=== PATIENT | male | born 1935 | race Caucasian/White ===

== ENCOUNTER 2016-04-02 | Outpatient (CLI) | payer MEDICARE, MEDICAID | END 2016-04-02 23:33 | disposition critical access hospital (66) | CPT/HCPCS: A0425; A0429 ==

== ENCOUNTER 2016-04-02 23:45 | Inpatient (IN) | payer MEDICARE, MEDICAID ==
[2016-04-02] MEDS ORDERED: A & D OINTMENT 5 GM PACKET TOP ONE (23:56)
[2016-04-03] MEDS ORDERED: SODIUM CHLORIDE 0.9% 1,000 ML IV ONE (00:56)
[2016-04-03] MEDS ORDERED: cefTRIAXone 1 GM in SODIUM CHLORIDE 0.9% MINIBAG 100 ML IV STA (01:14)
[2016-04-03] MEDS ORDERED: AZITHROMYCIN 250 MG TABLET PO STA (01:14)
[2016-04-03] MEDS ORDERED: cefTRIAXone 1 GM VIAL ONE (01:17)
[2016-04-03] MEDS ORDERED: AZITHROMYCIN 250 MG TABLET PO ONE (01:17)
[2016-04-03] MEDS ORDERED: SODIUM CHLORIDE FLUSH 0.9% 10 ML SYRINGE IVP PRN (01:24)
[2016-04-03] MEDS ORDERED: ACETAMINOPHEN 325 MG TABLET PO PRN (01:24)
[2016-04-03] MEDS ORDERED: IPRATROPIUM 0.2 MG/ML NEB INH PRN (01:24)
[2016-04-03] MEDS ORDERED: PROCHLORPERAZINE 10 MG/2 ML VIAL IVP PRN (01:24)
[2016-04-03] MEDS ORDERED: HYDROcod/ACETAM 5/325 MG TABLET PO PRN (01:24)
[2016-04-03] MEDS ORDERED: ONDANSETRON 4 MG/2 ML VIAL IVP PRN (01:24)
[2016-04-03] MEDS: SODIUM CHLORIDE 0.9% 1,000 ML IV SCH ×3 (03:00→22:15)
[2016-04-03] MEDS: SODIUM CHLORIDE FLUSH 0.9% 10 ML SYRINGE IVP SCH ×3 (05:44→22:15)
[2016-04-03] MEDS: LEVOTHYROXINE 25 MCG TABLET PO SCH (06:31)
[2016-04-03] MEDS: PANTOPRAZOLE 40 MG TABLET PO SCH (06:31)
[2016-04-03] MEDS: BUDESONIDE 0.5 MG/2 ML NEB INH SCH ×2 (07:25→17:50)
[2016-04-03] MEDS: HYDROcod/ACETAM 10 MG/325 MG TABLET PO PRN ×2 (07:57→17:32)
[2016-04-03] MEDS: CARBIDOPA/LEVODOPA 25 MG/100 MG TABLET PO SCH ×2 (07:57→12:01)
[2016-04-03] MEDS: predniSONE 1 MG TABLET PO SCH (09:18)
[2016-04-03] MEDS: ATENOLOL 25 MG TABLET PO SCH (09:20)
[2016-04-03] MEDS: ASPIRIN CHEW 81 MG TABLET PO SCH (09:20)
[2016-04-03] MEDS: POLYETHYLENE GLYCOL 3350 17 GM PACKET PO SCH (09:20)
[2016-04-03] MEDS: ENOXAPARIN 40 MG/0.4 ML SYRINGE SUBQ SCH (09:20)
[2016-04-03] MEDS: SACCHAROMYCES BOULARDII 250 MG CAPSULE PO SCH ×2 (09:20→17:26)
[2016-04-03] MEDS: GABAPENTIN 300 MG CAPSULE PO SCH (12:01)
[2016-04-03] MEDS: MULTIVITAMIN TABLET PO SCH (12:01)
[2016-04-03] MEDS: carBAMazepine 200 MG TABLET PO SCH ×2 (12:01→17:26)
[2016-04-03] MEDS: Vortioxetine Hydrobromide [Trintellix] 10 MG TAB PO SCH (14:13)
[2016-04-03] MEDS ORDERED: CARBIDOPA/LEVODOPA 25 MG/100 MG TABLET PO SCH (17:00)
[2016-04-03] MEDS ORDERED: DUTASTERIDE PO SCH (17:00)
[2016-04-03] MEDS ORDERED: TAMSULOSIN HCL PO SCH (17:00)
[2016-04-03] MEDS ORDERED: CHOLECALCIFEROL 1,000 UNIT TABLET PO SCH (17:00)
[2016-04-03] MEDS ORDERED: hydroCHLOROthiazide 25 MG TABLET PO SCH (17:00)
[2016-04-03] MEDS: IPRATROPIUM/ALBUTEROL 3 ML NEB INH PRN (17:50)
[2016-04-04] MEDS ORDERED: cefTRIAXone 2 GM in SODIUM CHLORIDE 0.9% MINIBAG 100 ML IV SCH (01:00)
[2016-04-04] MEDS ORDERED: AZITHROMYCIN INJ 500 MG in SODIUM CHLORIDE 0.9% 250 ML IV SCH (01:00)
[2016-04-04] MEDS: LEVOTHYROXINE 25 MCG TABLET PO SCH (05:57)
[2016-04-04] MEDS: PANTOPRAZOLE 40 MG TABLET PO SCH (05:57)
[2016-04-04] MEDS: SODIUM CHLORIDE FLUSH 0.9% 10 ML SYRINGE IVP SCH ×2 (06:46→13:05)
[2016-04-04] MEDS: SACCHAROMYCES BOULARDII 250 MG CAPSULE PO SCH (08:33)
[2016-04-04] MEDS: ENOXAPARIN 40 MG/0.4 ML SYRINGE SUBQ SCH (08:33)
[2016-04-04] MEDS: ASPIRIN CHEW 81 MG TABLET PO SCH (08:34)
[2016-04-04] MEDS: predniSONE 1 MG TABLET PO SCH (08:34)
[2016-04-04] MEDS: ATENOLOL 25 MG TABLET PO SCH (08:35)
[2016-04-04] MEDS: CARBIDOPA/LEVODOPA 25 MG/100 MG TABLET PO SCH ×2 (08:35→12:13)
[2016-04-04] MEDS: Vortioxetine Hydrobromide [Trintellix] 10 MG TAB PO SCH (08:36)
[2016-04-04] MEDS: POLYETHYLENE GLYCOL 3350 17 GM PACKET PO SCH (08:36)
[2016-04-04] MEDS: IPRATROPIUM/ALBUTEROL 3 ML NEB INH PRN (08:59)
[2016-04-04] MEDS: BUDESONIDE 0.5 MG/2 ML NEB INH SCH (08:59)
[2016-04-04] MEDS ORDERED: CALCIUM CARBONATE CHEW 500 MG TABLET PO SCH (11:00)
[2016-04-04] MEDS ORDERED: SODIUM CHLORIDE 0.45% 1,000 ML IV SCH (11:00)
[2016-04-04] MEDS: SODIUM CHLORIDE 0.9% 1,000 ML IV SCH (11:21)
[2016-04-04] MEDS ORDERED: ALBUTEROL NEB 2.5 MG/3 ML INH PRN (12:02)
[2016-04-04] MEDS: GABAPENTIN 300 MG CAPSULE PO SCH (13:03)
[2016-04-04] MEDS: carBAMazepine 200 MG TABLET PO SCH (13:03)
[2016-04-04] MEDS: MULTIVITAMIN TABLET PO SCH (13:03)
[2016-04-04] MEDS ORDERED: FORMOTEROL FUMARATE NEB 20 MCG/2 ML INH SCH (19:00)
[2016-04-05] MEDS ORDERED: predniSONE 5 MG TABLET PO SCH (09:00)
== END 2016-04-04 15:23 | disposition home or self-care (01) | DRG 195 ==
DX: J18.9 Pneumonia, unspecified organism (principal); I10 Essential (primary) hypertension; E03.9 Hypothyroidism, unspecified; G20 Parkinson's disease; Z79.52 Long term (current) use of systemic steroids; Z79.82 Long term (current) use of aspirin; Z87.891 Personal history of nicotine dependence; J44.9 Chronic obstructive pulmonary disease, unspecified; J45.909 Unspecified asthma, uncomplicated; I48.91 Unspecified atrial fibrillation; Z90.2 Acquired absence of lung [part of]; I73.9 Peripheral vascular disease, unspecified; Z98.42 Cataract extraction status, left eye; Z98.41 Cataract extraction status, right eye; R53.83 Other fatigue; E86.0 Dehydration; R33.9 Retention of urine, unspecified

== ENCOUNTER 2016-04-11 15:59 | Outpatient (CLI) | payer MEDICARE, MEDICAID | END 2016-04-11 16:00 | disposition home or self-care (01) | DX: J18.9 Pneumonia, unspecified organism (principal) ==

== ENCOUNTER 2016-08-04 03:35 | Outpatient (CLI) | payer MEDICARE, MEDICAID | END 2016-08-04 03:36 | disposition EMS.NT | LOC: EMS 03:35 | PROVIDERS: ATTEND Surgery | DX: Z71.1 Person with feared health complaint in whom no diagnosis is made (principal) ==

== ENCOUNTER 2016-08-09 08:33 | Outpatient (CLI) | payer MEDICARE, MEDICAID | END 2016-08-09 08:34 | disposition critical access hospital (66) | LOC: EMS 08:33 | PROVIDERS: ATTEND Surgery | DX: R53.1 Weakness (principal) | CPT/HCPCS: A0425; A0427 ==

== ENCOUNTER 2016-08-09 08:47 | Emergency (ER) | payer MEDICARE, MEDICAID ==
--- NOTE | 2016-08-09 09:00 | ED Physician Documentation ---
History of Present Illness - Stated complaint Stated Complaint: WEAKNESS - Additonal information Additional information: hx from EMS and from pt and EMR 81 male per EMR Pmxg [employer], lung cancer s/p surgery, hypothyroid, BPH, parkinsons, HTN, OA , PAD, afib not on coumadin 2/2 GIB generally weak with numerous falls recently 2 days of AMS as well no reported fever cough NVD or urinary sx no blood thinners seen in pt box of meds per EMS family states hx of same usually admitted for 2 days and comes home better but they dont know the dx Review of Systems Constitutional: denies: Fever, Chills Ears: denies: Drainage/discharge Nose: denies: Epistaxis Cardiac: denies: Chest pain / pressure Respiratory: denies: Dyspnea GI: denies: Abdominal Pain : denies: Dysuria Skin: reports: Abrasion (s) Neurologic: reports: Generalized weakness, Altered mental status, Head injury. denies: Focal weakness, Numbness Immunocompromised: denies: Immunocompromised PD PAST MEDICAL HISTORY - Past Medical History Cardiovascular: Hypertension Respiratory: Asthma, COPD Neuro: Parkinson's Endocrine/Autoimmune: HyPOthyroidism GI: None : Benign prostate hypertrophy HEENT: None Psych: None Musculoskeletal: Osteoarthritis Derm: Other - Past Surgical History Past Surgical History: Yes General: Other - Present Medications Home Medications: Ambulatory Orders Medication Instructions Recorded Confirmed Carbamazepine [Epitol] 200 mg PO 1200,1700 02/05/13 08/09/16 Dutasteride/Tamsulosin HCl [Debbi 0.4 - 0.5 mg PO 1700 02/05/13 08/09/16 0.5-0.4 mg Capsule] Levothyroxine Sodium [Synthroid] 50 mcg PO QDAC 02/05/13 08/09/16 Aspirin 81 mg PO DAILY 12/28/13 08/09/16 Carbidopa/Levodopa 25/100 [Sinemet 1 tab PO 1700,2100 06/18/15 08/09/16 25 mg/100 mg] Carbidopa/Levodopa 2 tab PO 0800,1200 09/23/15 08/09/16 [Carbidopa-Levodopa 25-100 Tab] Cholecalciferol (Vitamin D3) 2,000 unit PO DAILY 09/23/15 08/09/16 [Vitamin D3] Vortioxetine Hydrobromide 10 mg PO DAILY 09/23/15 08/09/16 [Trintellix] Gabapentin [Neurontin] 100 mg PO QDLUNCH 11/23/15 08/09/16 Multivitamin [Theragran] 1 each PO QDLUNCH 11/23/15 08/09/16 hydroCHLOROthiazide [Hydrodiuril] 25 mg PO DAILY 11/23/15 08/09/16 Atenolol [Tenormin] 25 mg PO BID 01/15/16 08/09/16 Acetaminophen [Tylenol] 650 mg PO Q4HR PRN #0 tablet 04/04/16 Albuterol Sulfate [Proair Hfa 2 puffs INH Q6H PRN 04/04/16 08/09/16 Inhaler] Fluticasone/Salmeterol [Advair 1 - 2 puffs IH Q4HR PRN #1 04/04/16 08/09/16 250-50 Diskus] disk.w.dev predniSONE [Deltasone] 5 mg PO DAILY tablet 04/04/16 08/09/16 Gabapentin 300 mg PO BID 08/09/16 08/09/16 - Allergies Allergies/Adverse Reactions: Allergies Allergy/AdvReac Type Severity Reaction Status Date / Time venom-honey bee Allergy Severe Respiratory Verified 01/15/16 08:10 [bee venom (honey bee)] - Social History Does the pt smoke?: No Smoking Status: Former smoker Does the pt drink ETOH?: No Does the pt have substance abuse?: No - Immunizations Immunizations are current?: Yes PD ED PE NORMAL - Vitals Vital signs reviewed: Yes - General General: No: Alert and oriented X 3 (when I ak if he hit his head he says "yes while playing hockey") - HEENT HEENT: Atraumatic, PERRL - Neck Neck: No bony TTP (but altered so cannot clear) - Cardiac Cardiac: RRR - Respiratory Respiratory: No respiratory distress, Clear bilaterally - Abdomen Abdomen: Soft, Non tender - Derm Derm: Other (bluish fingertips, warm, good radial pulse, cap refill 2-3 sec) - Extremities Extremities: Other (abrasions to shins no deformity) - Neuro Neuro: Other (awake cooperative no facial droop, moving all ext equally) Results - Vitals Vitals: Vital Signs - 24 hr 08/09/16 08/09/16 08/09/16 08:55 11:55 14:01 Temperature 36.6 C Heart Rate 92 77 79 Respiratory 16 18 16 Rate Blood Pressure 154/90 H 154/77 H 143/75 H O2 Saturation 100 99 97 Oxygen O2 Source [] Room air O2 Source Room air - EKG (time done) 0920 Rate: Rate (enter#) (87) Rhythm: Atrial fibrillation Intervals: Wide QRS (borderline). No: Normal GA Ischemia: Normal ST segments - Labs Labs: Laboratory Tests 08/09/16 08/09/16 08/09/16 09:16 09:16 09:16 WBC 6.7 RBC 4.29 L Hgb 14.9 Hct 43.3 MCV 100.8 H MCH 34.7 H MCHC 34.4 RDW 13.8 Plt Count 143 MPV 8.5 Neut # 5.1 Lymph # 0.[address] # 0.8 Eos # 0.1 Baso # 0.0 Absolute Nucleated RBC 0.00 Nucleated RBCs 0.0 Sodium 140 Potassium 3.4 L Chloride 95 L Carbon Dioxide 34 H Anion Gap 11.0 BUN 34 H Creatinine 1.2 Estimated GFR (MDRD) 58 L Glucose 145 H Calcium 9.3 Troponin I < 0.04 Urine Color Urine Clarity Urine pH Ur Specific [place] Urine Protein Urine Glucose (UA) Urine Ketones Urine Occult Blood Urine Nitrite Urine Bilirubin Urine Urobilinogen Ur Leukocyte Esterase Ur Microscopic Review Urine Culture Comments Last Dose Date UNK Last Dose Time UNK Carbamazepine 5.0 08/09/16 10:13 WBC RBC Hgb Hct MCV MCH MCHC RDW Plt Count MPV Neut # Lymph # [place] # Eos # Baso # Absolute Nucleated RBC Nucleated RBCs Sodium Potassium Chloride Carbon Dioxide Anion Gap BUN Creatinine Estimated GFR (MDRD) Glucose Calcium Troponin I Urine Color YELLOW Urine Clarity CLEAR Urine pH 6.5 Ur Specific [place] 1.020 Urine Protein TRACE Urine Glucose (UA) NEGATIVE Urine Ketones NEGATIVE Urine Occult Blood NEGATIVE Urine Nitrite NEGATIVE Urine Bilirubin NEGATIVE Urine Urobilinogen 0.2 (NORMAL) Ur Leukocyte Esterase NEGATIVE Ur Microscopic Review NOT INDICATED Urine Culture Comments NOT INDICATED Last Dose Date Last Dose Time Carbamazepine - Rads (name of study) CXR Radiology: See rad report (persistent linear consolidation RUL c/w scarring and not new, no new consolidation, stable mediastinal contour right upper mediastinum) CTH Radiology: See rad report (age related no acute) CTCS Radiology: See rad report (no acute) PD MEDICAL DECISION MAKING - ED course ED course: per clinic records anemia is not new renal insuff unknown all other results reassuing tried to road test pt but he cannot safely stand per tech his L leg seems to give out causing him to verr and fall will admit for further work up and consideration of MRI to eval for CVA not seen on CT in the pt with a hx of a fib not on coumadin he was never a TPA candidate due to duration of sx but when hospitalist came to eval pt he was able to walk with no loss of balance or focal findings P also came to eval pt and found nothing focal so will dc home rec use walker and fup PMD CO2 noted - pt has COPD - no resp distress not confused etc - feel OK to proceed with dc Departure - Departure Disposition: 01 Home, Self Care Clinical Impression: Falls Qualifiers: Encounter type: initial encounter Qualified Code(s): W19.XXXA - Unspecified fall, initial encounter Condition: Good Instructions: Falls Prevent Home, ED Fall Uncertain Cause Comments: All of your tests were reassuring - the CT scans were fine, the xray did not show a pneumonia, and the blood work was OK except for an elevated CO2 level which is likely due to your COPD - please continue to use you inhalers and nebulizers We considered admitting you and the hospitalist and physical therapy service came to evaluate you, but they felt you were fairly steady on your feet and not needing admission So the plan is to let you go home and follow up with your doctor next week for a recheck. Please always use your walker for transfer and ambulating Return if worse And please follow up with your PMD to recheck your blood pressure - it was elevated today
[2016-08-09 09:27] LABS: BASOPHILS % (AUTO) 0.4 %; EOSINOPHILS # (AUTO) 0.1 10^3/uL (0.0-0.7); EOSINOPHILS % (AUTO) 1.2 %; HCT - HEMATOCRIT 43.3 % (42.0-52.0); HGB - HEMOGLOBIN 14.9 g/dL (14.0-18.0); LYMPHOCYTES # (AUTO) 0.6 10^3/uL (1.5-3.5); LYMPHOCYTES % (AUTO) 9.6 %; MEAN CORPUSCULAR HEMOGLOBIN 34.7 pg (27.0-31.0); MEAN CORPUSCULAR HGB CONC 34.4 g/dL (32.0-36.0); MEAN CORPUSCULAR VOLUME 100.8 fL (80.0-94.0); MEAN PLATELET VOLUME 8.5 fL (7.4-11.4); MONOCYTES # (AUTO) 0.8 10^3/uL (0.0-1.0); MONOCYTES % (AUTO) 12.1 %; NEUTROPHILS # (AUTO) 5.1 10^3/uL (1.5-6.6); NEUTROPHILS % (AUTO) 76.7 %; RED BLOOD COUNT 4.29 10^6/uL (4.70-6.10); RED CELL DISTRIBUTION WIDTH 13.8 % (12.0-15.0); UNCORRECTED WHITE BLOOD COUNT 6.7 x10^3/uL; WHITE BLOOD COUNT 6.7 x10^3/uL (4.8-10.8)
[2016-08-09 09:43] LABS: BUN - BLOOD UREA NITROGEN 34 mg/dL (6-20); CALCIUM 9.3 mg/dL (8.5-10.3); CARBON DIOXIDE - CO2 34 mmol/L (21-32); CHLORIDE 95 mmol/L (101-111); CREATININE 1.2 mg/dL (0.6-1.2); GFR - MDRD 58 (>89); GLUCOSE 145 mg/dL (70-100); POTASSIUM 3.4 mmol/L (3.5-5.0); SODIUM 140 mmol/L (135-145)
--- NOTE | 2016-08-09 10:07 | XRAY Preliminary Report ---
Exam: XR Chest 2 View PA/LAT IMPRESSION: 1. Persistent linear consolidation at the right upper lung compatible with scarring is unchanged. No new consolidation. 2. Stable mediastinal contour prominence at the right upper mediastinum. [facility] SITE ID: [id number]
--- NOTE | 2016-08-09 10:10 | XRAY Report ---
EXAM: CHEST RADIOGRAPHY EXAM DATE: 08/09/2016 09:52 AM. CLINICAL HISTORY: Weak and AMS concern re pna. COMPARISON: 04/11/2016. TECHNIQUE: 2 views. FINDINGS: Lungs/Pleura: COPD is evident. Persistent linear consolidation and scarring at the right upper lobe. Scarring is also noted at the right lung base. No new opacity. Left lung is clear. Possible right bas al stable pleural effusion versus pleural thickening. No pneumothorax. Mediastinum: Heart size is normal. Atheromatous calcification of the aortic arch. Prominence of the r ight upper mediastinal contour is unchanged. Other: Stable right upper lobe rib irregularity. IMPRESSION: 1. Persistent linear consolidation at the right upper lung compatible with scarring is unchanged. No new consolidation. 2. Stable mediastinal contour prominence at the right upper mediastinum. [facility] Referring Provider Line: [phone] SITE ID: [id number]
--- NOTE | 2016-08-09 10:13 | CT Preliminary Report ---
Exam: CT Head W/O IMPRESSION: Generalized age-related cortical atrophic changes without evidence of acute intracranial abnormality. [facility] SITE ID: [id number]
--- NOTE | 2016-08-09 10:16 | CT Report ---
EXAM: CT HEAD EXAM DATE: 08/09/2016 10:04 AM. CLINICAL HISTORY: Freq falls AMS X 2 days. COMPARISON: None. TECHNIQUE: Multiaxial CT images were obtained from the foramen magnum to the vertex. IV contrast: Non e. Reformats: Coronal. In accordance with CT protocol optimization, one or more of the following dose reduction techniques w ere utilized for this exam: automated exposure control, adjustment of mA and/or KV based on patient s ize, or use of iterative reconstructive technique. FINDINGS: Parenchyma: No intraparenchymal hemorrhage. No evidence of mass, midline shift, or CT findings of acu te infarction. Velasquez-white differentiation is distinct. Extraaxial Spaces: Normal for age. No subdural or epidural collections identified. Ventricles: The ventricles and cortical sulci are enlarged, consistent with age-related tissue loss. Sinuses: Imaged paranasal sinuses, orbits, and mastoids show no significant abnormality. Bones: No evidence of fracture or calvarial defect. Other: Diffuse chronic microangiopathic white matter changes are evident. IMPRESSION: Generalized age-related cortical atrophic changes without evidence of acute intracranial abnormality. [facility] Referring Provider Line: [phone] SITE ID: [id number]
[2016-08-09 10:21] LABS: BILIRUBIN,URINE NEGATIVE (NEGATIVE); PH,URINE 6.5 PH (5.0-7.5); UA CHARGE (STRIP ONLY) YES; UR CULTURE IF IND NOT INDICATED
--- NOTE | 2016-08-09 10:22 | CT Report ---
EXAM: CT CERVICAL SPINE WITHOUT CONTRAST DATE: 08/09/2016 10:04 AM HISTORY: Freq falls hit head. COMPARISONS: None. TECHNIQUE: Thin-section axial images were acquired of the cervical spine without contrast. Post-proce ssing: Coronal and sagittal reformats. Other: None. In accordance with CT protocol optimization, one or more of the following dose reduction techniques w ere utilized for this exam: automated exposure control, adjustment of mA and/or KV based on patient s ize, or use of iterative reconstructive technique. FINDINGS: Alignment: Normal. No scoliosis or spondylolisthesis. Bones: Osteopenia. No acute fracture lines are seen. No focal abnormal bone lesions. Interspace Levels/Facets: C1-C2: Moderate degenerative narrowing at the C1-C2 interspace. C2-C3: Unremarkable. C3-C4: Mild disk height loss. Moderate to severe bilateral neuroforaminal stenosis secondary to facet and uncovertebral hypertrophy. C4-C5: Mild disk height loss. Moderate to severe bilateral neuroforaminal stenosis secondary to facet and uncovertebral hypertrophy. C5-C6: Moderate to severe disk height loss with prominent disk osteophytes. Moderate to severe right and moderate left neuroforaminal stenosis secondary to facet and uncovertebral hypertrophy. C6-C7: Moderate to severe disk height loss. Moderate to severe bilateral neuroforaminal stenosis seco ndary to facet and uncovertebral hypertrophy. C7-T1: Unremarkable. Musculature: Normal. No fatty atrophy. Other: The paravertebral and prevertebral soft tissues are normal. Probable right apical lung scarrin g. Severe atheromatous calcification noted at the internal carotid artery sinuses bilaterally.. IMPRESSION: 1. No evidence for acute fracture or dislocation of the cervical spine. 2. Multilevel degenerative changes in cervical spine as described above. 3. Incidental note of severe atheromatous calcification of the internal carotid artery sinuses bilate rally. Ultrasound can be obtained for further evaluation if clinically indicated. [facility] Referring Provider Line: [phone] SITE ID: [id number]
[2016-08-09] MEDS ORDERED: SODIUM CHLORIDE FLUSH 0.9% 10 ML SYRINGE IVP PRN (12:36)
[2016-08-09] MEDS ORDERED: SODIUM CHLORIDE 0.9% 1,000 ML IV SCH (13:00)
[2016-08-09] MEDS ORDERED: ENOXAPARIN 40 MG/0.4 ML SYRINGE SUBQ SCH (13:00)
[2016-08-09] MEDS: SODIUM CHLORIDE 0.9% 1,000 ML IV ONE (13:38)
[2016-08-09] MEDS ORDERED: SODIUM CHLORIDE FLUSH 0.9% 10 ML SYRINGE IVP SCH (14:00)
[2016-08-09 14:02] VITALS: BP 143/75
[2016-08-10] MEDS ORDERED: POLYETHYLENE GLYCOL 3350 17 GM PACKET PO SCH (09:00)
== END 2016-08-09 14:58 | disposition home or self-care (01) ==
LOC: EDUNIT# → ED 08:47 → UNDOADMOB 12:36 → MS 12:36 → ED 14:58
DX: S09.90XA Unspecified injury of head, initial encounter (principal); W19.XXXA Unspecified fall, initial encounter; I48.91 Unspecified atrial fibrillation; R94.31 Abnormal electrocardiogram [ECG] [EKG]; Z85.118 Personal history of other malignant neoplasm of bronchus and lung; E03.9 Hypothyroidism, unspecified; N40.0 Benign prostatic hyperplasia without lower urinary tract symptoms; G20 Parkinson's disease; I10 Essential (primary) hypertension; M19.90 Unspecified osteoarthritis, unspecified site; I73.9 Peripheral vascular disease, unspecified; J45.909 Unspecified asthma, uncomplicated; J44.9 Chronic obstructive pulmonary disease, unspecified; Z79.82 Long term (current) use of aspirin; Z87.891 Personal history of nicotine dependence
CPT/HCPCS: 36415; 51701; 70450; 71020; 72125; 80048; 80156; 81001; 81003; 84484; 85025; 87086; 93005; 93010; 99284

== ENCOUNTER 2016-08-10 17:35 | Outpatient (CLI) | payer MEDICARE, MEDICAID | END 2016-08-10 17:36 | disposition critical access hospital (66) | LOC: EMS 17:35 | PROVIDERS: ATTEND Surgery | DX: R53.1 Weakness (principal) | CPT/HCPCS: A0425; A0429 ==

== ENCOUNTER 2016-08-10 17:46 | Inpatient (IN) | payer MEDICARE, MEDICAID ==
--- NOTE | 2016-08-10 17:56 | ED Physician Documentation ---
PD HPI ALTERED MENTAL STATUS - Stated complaint Stated Complaint: WEAKNESS - Chief complaint Chief Complaint: Neuro - History obtained from History obtained from: Patient, EMS, Other (family not here on pt arrival) - History of Present Illness Timing - onset: Other (81-year-old with history of Parkinson's and dementia who over the last couple of months has had a steady decline with difficulty walking and incontinence of urine. Seen yesterday and had workup showing a contraction alkalosis but a negative head CT and chest x-ray. Hospitalist service evaluated him but he was back to his baseline at the time. He was not doing well supposedly at home today with difficulty walking and generalized weakness.) Review of Systems Unable to obtain: Confused PD PAST MEDICAL HISTORY - Past Medical History Cardiovascular: Hypertension Respiratory: Asthma, COPD Neuro: Parkinson's Endocrine/Autoimmune: HyPOthyroidism GI: None : Benign prostate hypertrophy HEENT: None Psych: None Musculoskeletal: Osteoarthritis Derm: Other - Past Surgical History Past Surgical History: Yes General: Other - Present Medications Home Medications: Ambulatory Orders Medication Instructions Recorded Confirmed Carbamazepine [Epitol] 200 mg PO 1200,1700 02/05/13 08/10/16 Dutasteride/Tamsulosin HCl [Debbi 0.4 - 0.5 mg PO 1700 02/05/13 08/10/16 0.5-0.4 mg Capsule] Levothyroxine Sodium [Synthroid] 50 mcg PO QDAC 02/05/13 08/10/16 Aspirin 81 mg PO DAILY 12/28/13 08/10/16 Carbidopa/Levodopa 25/100 [Sinemet 1 tab PO 1700,2100 06/18/15 08/10/16 25 mg/100 mg] Carbidopa/Levodopa 2 tab PO 0800,1200 09/23/15 08/10/16 [Carbidopa-Levodopa 25-100 Tab] Cholecalciferol (Vitamin D3) 2,000 unit PO DAILY 09/23/15 08/10/16 [Vitamin D3] Vortioxetine Hydrobromide 10 mg PO DAILY 09/23/15 08/10/16 [Trintellix] Gabapentin [Neurontin] 100 mg PO QDLUNCH 11/23/15 08/10/16 Multivitamin [Theragran] 1 each PO QDLUNCH 11/23/15 08/10/16 hydroCHLOROthiazide [Hydrodiuril] 25 mg PO DAILY 11/23/15 08/10/16 Atenolol [Tenormin] 25 mg PO BID 01/15/16 08/10/16 Acetaminophen [Tylenol] 650 mg PO Q4HR PRN #0 tablet 04/04/16 08/10/16 Albuterol Sulfate [Proair Hfa 2 puffs INH Q6H PRN 04/04/16 08/10/16 Inhaler] Fluticasone/Salmeterol [Advair 1 - 2 puffs IH Q4HR PRN #1 04/04/16 08/10/16 250-50 Diskus] disk.w.dev predniSONE [Deltasone] 5 mg PO DAILY tablet 04/04/16 08/10/16 Gabapentin 300 mg PO BID 08/09/16 08/10/16 - Allergies Allergies/Adverse Reactions: Allergies Allergy/AdvReac Type Severity Reaction Status Date / Time venom-honey bee Allergy Severe Respiratory Verified 01/15/16 08:10 [bee venom (honey bee)] - Social History Does the pt smoke?: No Smoking Status: Former smoker Does the pt drink ETOH?: No Does the pt have substance abuse?: No - Immunizations Immunizations are current?: Yes PD ED PE NORMAL - Vitals Vital signs reviewed: Yes - General General: Other (A O x2, parkinsonian tremor) - HEENT HEENT: PERRL, EOMI - Neck Neck: Supple, no meningeal sign, No bony TTP - Cardiac Cardiac: Other (tachycardic) - Respiratory Respiratory: Other (diminished on R, L base crackels) - Abdomen Abdomen: Soft, Non tender - Back Back: No CVA TTP, No spinal TTP - Derm Derm: Normal color, Warm and dry - Extremities Extremities: No edema, No calf tenderness / cord - Neuro Neuro: No motor deficit, No sensory deficit, Other (good strength throughout.) - Psych Psych: Normal mood, Normal affect Results - Vitals Vitals: Vital Signs - 24 hr 08/10/16 08/10/16 17:47 18:52 Temperature 37.6 C H 37.0 C Heart Rate 105 H 81 Respiratory 18 15 Rate Blood Pressure 183/94 H 150/69 H O2 Saturation 96 97 Oxygen O2 Source [With Activity] Room air O2 Source Room air - Labs Labs: Laboratory Tests 08/10/16 08/10/16 08/10/16 18:24 18:24 18:24 WBC 9.4 RBC 4.15 L Hgb 14.5 Hct 41.6 L MCV 100.2 H MCH 34.9 H MCHC 34.8 RDW 13.6 Plt Count 149 MPV 8.1 Neut # 7.8 H Lymph # 0.7 L [place] # 0.8 Eos # 0.0 Baso # 0.0 Absolute Nucleated RBC 0.00 Nucleated RBCs 0.0 Sodium 141 Potassium 3.7 Chloride 95 L Carbon Dioxide 33 H Anion Gap 13.0 BUN 51 H Creatinine 1.2 Estimated GFR (MDRD) 58 L Glucose 132 H Calcium 9.4 Total Bilirubin 0.7 AST 37 ALT < 10 L Alkaline Phosphatase 74 Total Protein 6.5 L Albumin 4.2 Globulin 2.3 Albumin/Globulin Ratio 1.8 Lipase 22 Urine Color Urine Clarity Urine pH Ur Specific [place] Urine Protein Urine Glucose (UA) Urine Ketones Urine Occult Blood Urine Nitrite Urine Bilirubin Urine Urobilinogen Ur Leukocyte Esterase Ur Microscopic Review Urine Culture Comments Last Dose Date UNKNOWN Last Dose Time UNKNOWN Carbamazepine 4.5 08/10/16 19:57 WBC RBC Hgb Hct MCV MCH MCHC RDW Plt Count MPV Neut # Lymph # [place] # Eos # Baso # Absolute Nucleated RBC Nucleated RBCs Sodium Potassium Chloride Carbon Dioxide Anion Gap BUN Creatinine Estimated GFR (MDRD) Glucose Calcium Total Bilirubin AST ALT Alkaline Phosphatase Total Protein Albumin Globulin Albumin/Globulin Ratio Lipase Urine Color YELLOW Urine Clarity CLEAR Urine pH 5.5 Ur Specific [place] 1.025 Urine Protein TRACE Urine Glucose (UA) NEGATIVE Urine Ketones NEGATIVE Urine Occult Blood TRACE-LYSE Urine Nitrite NEGATIVE Urine Bilirubin NEGATIVE Urine Urobilinogen 0.2 (NORMAL) Ur Leukocyte Esterase NEGATIVE Ur Microscopic Review NOT INDICATED Urine Culture Comments NOT INDICATED Last Dose Date Last Dose Time Carbamazepine - Rads (name of study) 2v chest Radiology: EMP read contemporaneously (stable, NAD) PD MEDICAL DECISION MAKING - ED course ED course: 81-year-old gentleman with Parkinson's worsening dementia presents with frequent falls and worsening evidence of dehydration. No convincing evidence of a infection here. His daughter is available by phone, Nancy Alvarez [phone]. He does have evidence of worsening dehydration despite IV fluids yesterday with his BUN going from the mid 30s to above [address] Rice accepted to obs Departure - Departure Disposition: ED Place in Observation Clinical Impression: Dehydration Dementia Qualifiers: Dementia type: Parkinson's disease Dementia behavioral disturbance: without behavioral disturbance Qualified Code(s): G20 - Parkinson's disease; F02.80 - Dementia in other diseases classified elsewhere without behavioral disturbance Condition: Stable
[2016-08-10 18:30] LABS: BASOPHILS % (AUTO) 0.2 %; HCT - HEMATOCRIT 41.6 % (42.0-52.0); HGB - HEMOGLOBIN 14.5 g/dL (14.0-18.0); LYMPHOCYTES # (AUTO) 0.7 10^3/uL (1.5-3.5); LYMPHOCYTES % (AUTO) 7.9 %; MEAN CORPUSCULAR HEMOGLOBIN 34.9 pg (27.0-31.0); MEAN CORPUSCULAR HGB CONC 34.8 g/dL (32.0-36.0); MEAN CORPUSCULAR VOLUME 100.2 fL (80.0-94.0); MEAN PLATELET VOLUME 8.1 fL (7.4-11.4); MONOCYTES # (AUTO) 0.8 10^3/uL (0.0-1.0); MONOCYTES % (AUTO) 8.9 %; NEUTROPHILS # (AUTO) 7.8 10^3/uL (1.5-6.6); RED BLOOD COUNT 4.15 10^6/uL (4.70-6.10); RED CELL DISTRIBUTION WIDTH 13.6 % (12.0-15.0); UNCORRECTED WHITE BLOOD COUNT 9.4 x10^3/uL; WHITE BLOOD COUNT 9.4 x10^3/uL (4.8-10.8)
[2016-08-10 18:42] LABS: ALBUMIN/GLOBULIN RATIO 1.8 (1.0-2.2); BILIRUBIN,TOTAL 0.7 mg/dL (0.2-1.0); BUN - BLOOD UREA NITROGEN 51 mg/dL (6-20); CALCIUM 9.4 mg/dL (8.5-10.3); CARBON DIOXIDE - CO2 33 mmol/L (21-32); CHLORIDE 95 mmol/L (101-111); CREATININE 1.2 mg/dL (0.6-1.2); GFR - MDRD 58 (>89); GLUCOSE 132 mg/dL (70-100); LIPASE 22 U/L (22-51); POTASSIUM 3.7 mmol/L (3.5-5.0); SODIUM 141 mmol/L (135-145); TOTAL PROTEIN 6.5 g/dL (6.7-8.2)
--- NOTE | 2016-08-10 20:01 | XRAY Preliminary Report ---
Exam: XR Chest 2 View PA/LAT IMPRESSION: Stable radiographic appearance to the chest. No new plain film abnormalities are seen. [facility] SITE ID: [id number]
--- NOTE | 2016-08-10 20:04 | XRAY Report ---
EXAM: CHEST RADIOGRAPHY EXAM DATE: 08/10/2016 07:31 PM. CLINICAL HISTORY: Dyspnea, weakness. COMPARISON: Multiple priors, most recently 08/09/2016. TECHNIQUE: 2 views. FINDINGS: Lungs/Pleura: Stable right lung volume loss status post partial dissection. Left lung is well expande d. No evidence of acute consolidation or effusion. No pneumothorax. Mediastinum: Heart and mediastinal contours are unremarkable. Other: None. IMPRESSION: Stable radiographic appearance to the chest. No new plain film abnormalities are seen. [facility] Referring Provider Line: [phone] SITE ID: [id number]
[2016-08-10 20:11] LABS: BILIRUBIN,URINE NEGATIVE (NEGATIVE); PH,URINE 5.5 PH (5.0-7.5)
[2016-08-10 20:13] LABS: UA CHARGE (STRIP ONLY) YES; UR CULTURE IF IND NOT INDICATED
[2016-08-10] MEDS ORDERED: SODIUM CHLORIDE FLUSH 0.9% 10 ML SYRINGE IVP PRN (21:04)
[2016-08-10] MEDS ORDERED: ACETAMINOPHEN 325 MG TABLET PO PRN (21:04)
[2016-08-10] MEDS ORDERED: ONDANSETRON 4 MG/2 ML VIAL IVP PRN (21:04)
[2016-08-10] MEDS ORDERED: ALBUTEROL 8 GM INHALER INH PRN (21:10)
[2016-08-10] MEDS ORDERED: FLUTICASONE IH PRN (21:12)
[2016-08-10] MEDS ORDERED: SALMETEROL IH PRN (21:12)
[2016-08-10] MEDS ORDERED: POTASSIUM CHLORIDE INJ 20 MEQ in DEXTROSE 5%-0.45% NACL 1,000 ML IV SCH (22:00)
[2016-08-10] MEDS ORDERED: ALBUTEROL NEB 2.5 MG/3 ML INH PRN (22:49)
[2016-08-10] MEDS: SODIUM CHLORIDE FLUSH 0.9% 10 ML SYRINGE IVP SCH (23:03)
[2016-08-10 23:16] LABS: ABG ANALYSIS TIME 2311; ABG PCO2 42 mmHg (34-45); ABG PH 7.49 (7.35-7.45); ABG PO2 84 mmHg (80-100)
[2016-08-10 23:17] LABS: ABG BASE EXCESS 7.2 mmol/L (-2.0-3.0); ABG HCO3 31.2 mmol/L (22.0-26.0); ABG O2 DEVICE NASAL CANNULA; ABG OXYGEN SATURATION 96 % (94-98); ABG SATURATION PULSE OXIMETRY% 98 %; ABG SITE OF DRAW RIGHT BRACHIAL; ABG TCO2 32.5 MMOL/L (21.0-29.0)
[2016-08-10] MEDS: ATENOLOL 25 MG TABLET PO SCH (23:33)
[2016-08-10] MEDS: GABAPENTIN 300 MG CAPSULE PO SCH (23:33)
--- NOTE | 2016-08-10 23:54 | HISTORY & PHYSICAL EXAMINATION ---
Chief Complaint - Chief Complaint Chief Complaint: frequent falls,, poor by mouth intake, failure to thrive. History of Present Illness - Admitted From Admitted From:: emergency Department, home care - History Obtained From Records Reviewed: EMR History obtained from: patient and EMR Exam Limitations: Parkinson's with possible mild dementia - History of Present Illness HPI Comment/Other: this 81-year-old man normally lives at home with his wi . She recently had major surgery. One of their daughters has been trying to keep a check on them. He has been declining lately. He has had several falls recently. He was brought into the emergency room, and seems a bit dehydrated, so was given IV fluids. He was then discharged to home. He fell again today, and was brought Back to the emergency room. He does appear more dehydrated today He is now admitted as he has been failing outpatient management. As the nurses were settling in him into his new room,, they noticed a hard time getting an O2 saturation reading. His fingers seem to be bluish. As we evaluated him, and oximeter on his toe did show that his O2 saturation kristina to 100% on a nonrebreather. He asked for a drink of water, which he appeared to aspirate. He then began to cough, and coughed up a huge amounts of very thick, , whitish, ropy sputum. Afterwards, O2 saturations appeared to return to normal,, and the patient had less trouble breathing. -He notes he has had a cough productive of yellowish phlegm for the last one to 2 weeks. He has felt a little chilled, but is unaware of fever. He denies headaches or dizziness, earaches. His throat has been a little sore. He denies dysphasia,, or trouble chewing or swallowing food. He says he has not on a special diet at home. He denies chest pain or palpitation, shortness of breath, nausea or vomiting, diarrhea or constipation,, dysuria. 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 Dutasteride/tamsulosin 0.5-0.4 daily every afternoon Vitamin D 2000 units daily Sinemet 25/100 one twice a day at 1720 and 2100 Carbidopa-levodopa 25-100 , 2 tabs at 8 AM and noon Tegretol 200 mg at 1217 100 Atenolol 25 mg twice a day Aspirin 81 mg daily Albuterol inhaler 2 puffs every 6 h Acetaminophen 650 mg every 4 hours when necessary allergies: Honeybee venom social history: The patient lives w, but she just recently had major surgery. They have 3 children and 5 grandchildren. The patient generally walks with a walker. 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 He has a [id number] smoking history, He has one alcoholic drink per day. He does not use drugs. Family history : both parents are in their 70s, Another sister also of unknown cause. History - Past Medical History Cardiovascular: reports: Hypertension Respiratory: reports: Asthma, COPD Neuro: reports: Parkinson's Endocrine/Autoimmune: reports: HyPOthyroidism GI: reports: None : reports: Benign prostate hypertrophy HEENT: reports: None Psych: reports: None Musculoskeletal: reports: Osteoarthritis Derm: reports: Other MRSA Hx?: No - Past Surgical History General: reports: Other Meds/Allgy - Home Medications Home Medications: Ambulatory Orders Medication Instructions Recorded Confirmed Carbamazepine [Epitol] 200 mg PO 1200,1700 02/05/13 08/10/16 Dutasteride/Tamsulosin HCl [Debbi 0.4 - 0.5 mg PO 1700 02/05/13 08/10/16 0.5-0.4 mg Capsule] Levothyroxine Sodium [Synthroid] 50 mcg PO QDAC 02/05/13 08/10/16 Aspirin 81 mg PO DAILY 12/28/13 08/10/16 Carbidopa/Levodopa 25/100 [Sinemet 1 tab PO 1700,2100 06/18/15 08/10/16 25 mg/100 mg] Carbidopa/Levodopa 2 tab PO 0800,1200 09/23/15 08/10/16 [Carbidopa-Levodopa 25-100 Tab] Cholecalciferol (Vitamin D3) 2,000 unit PO DAILY 09/23/15 08/10/16 [Vitamin D3] Vortioxetine Hydrobromide 10 mg PO DAILY 09/23/15 08/10/16 [Trintellix] Gabapentin [Neurontin] 100 mg PO QDLUNCH 11/23/15 08/10/16 Multivitamin [Theragran] 1 each PO QDLUNCH 11/23/15 08/10/16 hydroCHLOROthiazide [Hydrodiuril] 25 mg PO DAILY 11/23/15 08/10/16 Atenolol [Tenormin] 25 mg PO BID 01/15/16 08/10/16 Acetaminophen [Tylenol] 650 mg PO Q4HR PRN #0 tablet 04/04/16 08/10/16 Albuterol Sulfate [Proair Hfa 2 puffs INH Q6H PRN 04/04/16 08/10/16 Inhaler] Fluticasone/Salmeterol [Advair 1 - 2 puffs IH Q4HR PRN #1 04/04/16 08/10/16 250-50 Diskus] disk.w.dev predniSONE [Deltasone] 5 mg PO DAILY tablet 04/04/16 08/10/16 Gabapentin 300 mg PO BID 08/09/16 08/10/16 - Allergies Allergies/Adverse Reactions: Allergies Allergy/AdvReac Type Severity Reaction Status Date / Time venom-honey bee Allergy Severe Respiratory Verified 01/15/16 08:10 [bee venom (honey bee)] Exam - Vital Signs Reviewed Vital Signs: Yes Vital Signs: Vital Signs x48h Temp Pulse Pulse Resp BP BP Pulse Ox 08/10/16 22:53 36.6 C 101 H 18 145/91 H 99 08/10/16 22:00 36.7 C 108 H 20 195/64 H 08/10/16 21:39 36.6 C 64 16 170/91 H 97 this is a very frail, cachectic-appearing elderly white man,, who was in no acute distress when I met him, but subsequently developed a very severe, congested, wet sounding cough. Head: Normocephalic, atraumatic Eyes: PERRLA, EOMI,, anicteric. Pharynx: Teeth are in only fair condition. Mucosa appears fairly moist. Posterior pharynx did not show exudates. Neck: Appears supple, without lymphadenopathy Cardiac shows an irregularly irregular rhythm, with very distant heart sounds. Lungs: Have generally decreased breath sounds, with scattered crackles. I do not hear significant wheezing Abdomen: Is scaphoid, but soft a,, without guarding or rebound.. Bowel sounds are active. Extremities: Fingernails were a bit cyanotic initially, but seemed to improve after he coughed up a large amount of phlegm, and O2 saturations improved. No edema is noted. Neurologic exam: The patient appears a bit forgetful, but appropriate, and cooperative. Neurologic exam is notable for a significant resting tremor of his hands. Otherwise, exam is grossly nonfocal. Conclusion/Plan - Lab Results Fish Bones: 08/10/16 18:24 08/10/16 18:24 Other Lab Results: aa CBC differential shows elevated MCV of 100.2.. Absolute neutrophil count is elevated at 7800. ABG on 2 L nasal cannula: PH 7.49, PCO2 42, PO2 84, bicarbonate 31,, O2 saturation 96% Total protein is low at 6.5plan Urinalysis is essentially normal Chest x-ray: Shows stable right lung volume loss after partial dissection. No acute consultation. EKG shows atrial fibrillation at a rate of 87.. Right ventricular hypertrophy is also evident. Voltage is somewhat low. CT of the cervical spine: Shows no acute fracture. Multilevel DJD is seen,, as well as severe calcification of the internal carotid sinuses.. CT of the brain shows only age related changes Issues/Core Measures - Anticipated LOS Anticipated Stay Length: Less than 2 midnights - Issues Hospital Issues and Management Plan: #1. Weakness, and failure to thrive, with frequent falls. -this patient appears to have dehydration, which is likely contributing to his weakness. He reportedly has had a 70 pound weight loss over the last year or so, , and doesn't appear malnourished. He likely has progressive Parkinson's symptoms as well. He appears to aspirate when drinking thin liquids,, tonight. -He should have a speech therapy swallow eval. -I suspect he has an early aspiration pneumonia. -Physical therapy and occupational ttherapy evaluations. -IV fluids for rehydration. #2. Pulmonary. -Patient has COPD, and given his respiratory problems just after admission, I suspect possible recurrent pneumonia. -Blood and sputum cultures have been ordered. -Cover empirically with IV Zosyn.. -Oxygen, albuterol nebs, pulmonary toilet..,, A-I elected to avoid ipratropium to avoid making his secretions even thicker. -continue prednisone. -clarify home Advair dose. Our medication list says he uses it when necessary. #3. CODE STATUS: I believe he is still a full code. #4. DVT prophylaxis: Subcutaneous heparin. #5. Neurologic. Progressive Parkinson's. Continue physical therapy. Continue Sinemet. -he takes carbamazepine. I am not sure if he has a seizure hi #6. Endocrine. -Continue levothyroxine for hypothyroidism. #7. Cardiac. -Chronic atrial fibrillation. Continue aspirin. Coumadin was discontinued for GI bleed. Patient would also be high risk regarding his falling issues. -history of aortic stenosis. He may need an echocardiogram to see if this is contributing to falling. --Hypertension-continue atenolol. #8. KNOWN PERIPHERAL ARTERY DISEASE> Continue aspirin. #9. Neuropathy. Continue gabapentin. this visit took approximately 60 alessandra, to review the patient's records, review his case with the ER Shawn, interview and examine him,, and write orders.
[2016-08-11] MEDS: PIPERACILLIN/TAZOBACTAM 3.375 GM in SODIUM CHLORIDE 0.9% MINIBAG 100 ML IV SCH ×4 (01:59→20:11)
[2016-08-11] MEDS: SODIUM CHLORIDE FLUSH 0.9% 10 ML SYRINGE IVP SCH ×3 (05:54→23:35)
[2016-08-11 05:55] LABS: BASOPHILS % (AUTO) 0.2 %; HCT - HEMATOCRIT 37.8 % (42.0-52.0); HGB - HEMOGLOBIN 13.2 g/dL (14.0-18.0); LYMPHOCYTES # (AUTO) 1.1 10^3/uL (1.5-3.5); LYMPHOCYTES % (AUTO) 11.1 %; MEAN CORPUSCULAR HGB CONC 34.9 g/dL (32.0-36.0); MEAN CORPUSCULAR VOLUME 100.4 fL (80.0-94.0); MEAN PLATELET VOLUME 8.8 fL (7.4-11.4); MONOCYTES # (AUTO) 0.9 10^3/uL (0.0-1.0); MONOCYTES % (AUTO) 9.1 %; NEUTROPHILS # (AUTO) 7.6 10^3/uL (1.5-6.6); NEUTROPHILS % (AUTO) 79.6 %; RED BLOOD COUNT 3.76 10^6/uL (4.70-6.10); RED CELL DISTRIBUTION WIDTH 13.9 % (12.0-15.0); UNCORRECTED WHITE BLOOD COUNT 9.6 x10^3/uL; WHITE BLOOD COUNT 9.6 x10^3/uL (4.8-10.8)
[2016-08-11 06:07] LABS: ALBUMIN/GLOBULIN RATIO 1.2 (1.0-2.2); BUN - BLOOD UREA NITROGEN 41 mg/dL (6-20); CALCIUM 8.5 mg/dL (8.5-10.3); CARBON DIOXIDE - CO2 33 mmol/L (21-32); CHLORIDE 98 mmol/L (101-111); GFR - MDRD 72 (>89); GLUCOSE 132 mg/dL (70-100); SODIUM 140 mmol/L (135-145); TOTAL PROTEIN 6.1 g/dL (6.7-8.2)
[2016-08-11] MEDS: LEVOTHYROXINE 25 MCG TABLET PO SCH (06:22)
--- NOTE | 2016-08-11 06:31 | XRAY Preliminary Report ---
Exam: XR Chest 1 View IMPRESSION: 1. Scarring and volume loss in the right hemithorax. 2. Left basilar atelectasis or infiltrate. 3. Pulmonary vascularity upper normal. [facility] SITE ID: [id number]
--- NOTE | 2016-08-11 06:34 | XRAY Report ---
EXAM: CHEST RADIOGRAPHY EXAM DATE: 08/11/2016 06:21 AM. CLINICAL HISTORY: Pneumonia, aspiration. COMPARISON: 08/10/2016. TECHNIQUE: 1 view. FINDINGS: Lungs/Pleura: Scarring and volume loss again seen in the right hemithorax. Left basilar atelectasis o r infiltrate. Pulmonary vascularity is upper normal. There may be trace pleural fluid. No pneumothora x. Mediastinum: Within exam limitations, cardiomediastinal contour is normal. Other: None. IMPRESSION: 1. Scarring and volume loss in the right hemithorax. 2. Left basilar atelectasis or infiltrate. 3. Pulmonary vascularity upper normal. [facility] Referring Provider Line: [phone] SITE ID: [id number]
[2016-08-11] MEDS ORDERED: D5.45NS W/20 MEQ KCL 1,000 ML IV SCH (08:00)
[2016-08-11] MEDS: predniSONE 1 MG TABLET PO SCH (08:39)
[2016-08-11] MEDS: CARBIDOPA/LEVODOPA 25 MG/100 MG TABLET PO SCH ×4 (08:40→21:52)
[2016-08-11] MEDS: ASPIRIN CHEW 81 MG TABLET PO SCH (08:40)
[2016-08-11] MEDS: POLYETHYLENE GLYCOL 3350 17 GM PACKET PO SCH (08:40)
[2016-08-11] MEDS: ATENOLOL 25 MG TABLET PO SCH (08:40)
[2016-08-11] MEDS: CHOLECALCIFEROL 1,000 UNIT TABLET PO SCH (08:41)
[2016-08-11] MEDS: GABAPENTIN 300 MG CAPSULE PO SCH ×2 (08:42→21:52)
[2016-08-11] MEDS: D5.45NS W/20 MEQ KCL 1,000 ML IV SCH ×2 (08:43→19:07)
[2016-08-11] MEDS: HEPARIN 5,000 UNIT/ML VIAL SUBQ SCH ×2 (08:44→21:52)
[2016-08-11] MEDS ORDERED: ALBUTEROL NEB 2.5 MG/3 ML INH SCH (09:00)
[2016-08-11] MEDS ORDERED: VORTIOXETINE HYDROBROMIDE 10 MG PO SCH (09:00)
--- NOTE | 2016-08-11 10:16 | PROVIDER PROGRESS NOTE ---
Subjective - Prog Note Date Prog Note Date: 08/11/16 Prog Note Time: 10:14 - Subjective Subjective: Youre asking me too many questions, (when doing assessment this am) Family in right as I was assessing They have been just starting to look into LTC (have not yet met with social work), but recognize he is failing at home; falling more frequently, significant weight loss Current Medications - Current Medications Current Medications: Active Medications Generic Name Dose Route Start Last Admin Trade Name Freq PRN Reason Stop Dose Admin Acetaminophen 650 mg 08/10/16 21:04 Tylenol PO Q4HR PRN Pain 1 to 4 Albuterol 2.5 mg 08/10/16 22:49 INH RTQ4H PRN Wheezing Albuterol 2.5 mg 08/11/16 09:00 08/11/16 07:43 INH 2.5 mg QID FRANCISCO Administration Aspirin 81 mg 08/11/16 09:00 08/11/16 08:40 [facility] [place] Aspirin PO 81 mg DAILY FRANCISCO Administration Atenolol 25 mg 08/10/16 22:00 08/11/16 08:40 Tenormin PO 25 mg BID FRANCISCO Administration Carbamazepine 200 mg 08/11/16 12:00 Tegretol PO 1200,1700 [facility] Carbidopa/Levodopa 2 tab 08/11/16 08:00 08/11/16 08:40 Sinemet 25 Mg/100 Mg PO 2 tab 0800,1200 FR[facility]ISCO Administration Carbidopa/Levodopa 1 tab 08/11/16 17:00 Sinemet 25 Mg/100 Mg PO 1700,2100 [facility] Cholecalciferol 2,000 unit 08/11/16 09:00 08/11/16 08:41 Vitamin D3 PO 2,000 unit DAILY FRANCISCO Administration Finasteride 5 mg 08/11/16 17:00 Proscar PO DAILY@1700 [facility] Gabapentin 100 mg 08/11/16 12:00 Neurontin PO QDLUNCH [facility]ANC[facility]CO Gabapentin 300 mg 08/10/16 22:00 08/11/16 08:42 Neurontin PO 300 mg BID FRANCISCO Administration Heparin Sodium (Porcine) 5,000 unit 08/11/16 09:00 08/11/16 08:44 SUBQ 5,000 unit BID FRANCISCO Administration Piperacillin Sod/Tazobactam 100 mls @ 200 mls/hr 08/10/16 23:00 08/11/16 08:37 Sod 3.375 gm/ Sodium Chloride IV 200 mls/hr Q6H [facility]ANCISCO Administration Potassium Chloride/Dextrose/Sod Cl 1,000 mls @ 100 mls/hr 08/11/16 08:00 08:43 D5.45ns W/20 Meq Kcl IV 100 mls/hr .Q10H FRANCISCO Administration Levothyroxine Sodium 50 mcg 08/11/16 07:00 08/11/16 06:22 Synthroid PO 50 mcg QDAC FRANCISCO Administration Multivitamins 1 tab 08/11/16 12:00 Theragran PO QDLUNCH [facility] Ondansetron HCl 4 mg 08/10/16 21:04 Zofran Inj IVP Q6HR PRN Nausea / Vomiting Polyethylene Glycol 17 gm 08/11/16 09:00 08/11/16 08:40 Miralax PO 17 gm DAILY FR[facility]ISCO Administration Prednisone 5 mg 08/11/16 09:00 08/11/16 08:39 Deltasone PO 5 mg DAILY FRANCISCO Administration Sodium Chloride 10 ml 08/10/16 21:04 Normal Saline Flush 0.9% IVP PRN PRN NEEDED PER PROVIDER ORDERS Sodium Chloride 10 ml 08/10/16 22:00 08/11/16 05:54 Normal Saline Flush 0.9% IVP Not Given Q8HR [facility] Tamsulosin HCl 0.4 mg 08/11/16 17:00 Flomax PO DAILY@1700 [facility] Carbamazepine [Epitol] 200 mg PO 1200,1700 02/05/13 Dutasteride/Tamsulosin HCl [Debbi 0.5-0.4 mg Capsule] 0.4 - 0.5 mg PO 1700 02/05 Levothyroxine Sodium [Synthroid] 50 mcg PO QDAC 02/05/13 Aspirin 81 mg PO DAILY 12/28/13 Carbidopa/Levodopa 25/100 [Sinemet 25 mg/100 mg] 1 tab PO 1700,2100 06/18/15 Carbidopa/Levodopa [Carbidopa-Levodopa 25-100 Tab] 2 tab PO 0800,1200 09/23/15 Cholecalciferol (Vitamin D3) [Vitamin D3] 2,000 unit PO DAILY 09/23/15 Vortioxetine Hydrobromide [Trintellix] 10 mg PO DAILY 09/23/15 Gabapentin [Neurontin] 100 mg PO QDLUNCH 11/23/15 Multivitamin [Theragran] 1 each PO QDLUNCH 11/23/15 hydroCHLOROthiazide [Hydrodiuril] 25 mg PO DAILY 11/23/15 Atenolol [Tenormin] 25 mg PO BID 01/15/16 Albuterol Sulfate [Proair Hfa Inhaler] 2 puffs INH Q6H PRN 04/04/16 Gabapentin 300 mg PO BID 08/09/16 Objective - Vital Signs/Intake & Output Reviewed Vital Signs: Yes Vital Signs: Vital Signs x48h Temp Pulse Pulse Resp BP 08/11/16 09:34 36.6 C 89 16 115/68 08/11/16 07:46 100 24 08/11/16 06:00 36.4 C L 73 18 145/77 H Intake & Output: Intake & Output 08/08/16 08/09/16 08/10/16 08/11/16 23:59 23:59 23:59 23:59 Intake Total 973 Output Total 100 Balance -100 973 - Objective General Appearance: positive: No acute distress, Other (sleeping quietly when I first saw him, later awake, conversant, and family in Got up to chair with PT, sitting up eating lunch) Eyes Bilateral: positive: EOMI Respiratory: positive: No respiratory distress, Other (very prominent ribs vocalizing during exam interfering with assessment later sitting up in chair auscultated again; LLL rhonchi, sl RLL rhonchi, unlabored resps, 94% on 2L denies sob) Cardiovascular: positive: Regular rate & rhythm Abdomen: positive: Nml bowel sounds, No distention, Other (concave/scaphoid). negative: Tenderness Skin: positive: Warm, Dry, Other (no breakdown over spine ecchymosis deep purple R burleson, small bruise on L burleson) Extremities: positive: No pedal edema Neurologic/Psychiatric: positive: Oriented x3 (although STM for details is not good (e.g. has fallen 1.5 x in the last month)), Mood/affect nml, Other ( pleasant and engageable) - Lab Results Fish Bones: 08/11/16 05:00 08/11/16 05:00 Other Labs: Lab Results x24hrs 06/18/17 06/18/17 06/17/17 Range/Units 05:00 05:00 23:00 WBC 9.6 (4.8-10.8) x10^3/uL RBC 3.76 L (4.70-6.10) 10^6/uL Hgb 13.2 L (14.0-18.0) g/dL Hct 37.8 L (42.0-52.0) % MCV 100.4 H (80.0-94.0) fL MCH 35.0 H (27.0-31.0) pg MCHC 34.9 (32.0-36.0) g/dL RDW 13.9 (12.0-15.0) % Plt Count 128 L (130-450) 10^3/uL MPV 8.8 (7.4-11.4) fL Neut # 7.6 H (1.5-6.6) 10^3/uL Lymph # 1.1 L (1.5-3.5) 10^3/uL Marion # 0.9 (0.0-1.0) 10^3/uL Eos # 0.0 (0.0-0.7) 10^3/uL Baso # 0.0 (0.0-0.1) 10^3/uL Absolute Nucleated RBC 0.00 x10^3/uL Nucleated RBCs 0.0 /100WBC Bld Gas Analysis Time 2311 Sample Site RIGHT BRACHIAL ABG pH 7.49 H (7.35-7.45) ABG pCO2 42 (34-45) mmHg ABG pO2 84 (80-100) mmHg ABG HCO3 31.2 H (22.0-26.0) mmol/L ABG Total CO2 32.5 H (21.0-29.0) MMOL/L ABG O2 Saturation 96 (94-98) % ABG Oximetry Spot Check 98 % ABG Base Excess 7.2 H (-2.0-3.0) mmol/L David Test NOT APPLICABLE O2 Delivery Device NASAL CANNULA O2 Liters/Min 2.00 LPM Sodium 140 (135-145) mmol/L Potassium 3.0 L (3.5-5.0) mmol/L Chloride 98 L (101-111) mmol/L Carbon Dioxide 33 H (21-32) mmol/L Anion Gap 9.0 (6-13) BUN 41 H (6-20) mg/dL Creatinine 1.0 (0.6-1.2) mg/dL Estimated GFR (MDRD) 72 L (>89) Glucose 132 H (70-100) mg/dL Calcium 8.5 (8.5-10.3) mg/dL Ionized Calcium NO Total Bilirubin 1.0 (0.2-1.0) mg/dL AST 32 (10-42) IU/L ALT 19 (10-60) IU/L Alkaline Phosphatase 57 (42-121) IU/L Total Protein 6.1 L (6.7-8.2) g/dL Albumin 3.3 (3.2-5.5) g/dL Globulin 2.8 (2.1-4.2) g/dL Albumin/Globulin Ratio 1.2 (1.0-2.2) - Diagnostic Imaging Diagnostic Imaging Results: positive: Final report reviewed (CXR Left basilar atelectasis or infiltrate, scarring , volume loss R hemithorax Admission CXR did not note this) Assessment/Plan - Problem List (1) Falls Impression: Falls and Failure to Thrive and Wt loss/ Geriatric Syndrome progressive and multifactorial w/ progressive dementia PT evaluated today; final assessment not yet entered family was already realizing he needed LTC (also just had surgery). SW aware OOB to chair for all meals to avoid further deconditioning Qualifiers: Encounter type: initial encounter Qualified Code(s): W19.XXXA - Unspecified fall, initial encounter (2) Parkinsons disease Impression: Progressive/ advanced cotninue sinemet (3) Left lower lobe pneumonia Impression: with suspiciaous aspiration (possible early aspiration pneumonia) and possible mucus plug 08/10 continue zosyn, nebs, 02, wean 02 as able,low dose Prednisone (4) Hypothyroidism Impression: continue LT4 (5) Atrial fibrillation Impression: with Hx of GI bleed on warfarin HR controlled (sounds regular currently) on bid atenolol (25 mg po bid), but when upright in chair SBP low 80's (he is alert and oriented, not light headed as above) will reduce atenolol to qd and reeval/ hopefully still adequate rate control with that dose Qualifiers: (6) Volume depletion Impression: Volume depletion and orthostasis family reports he was not drinking at home when was home alone BUN improving, continue IVF orthostatic (which may be combination of volume depletion, autonomic dysfunction and atenolol , recheck chem (BUN) in am and orthostatics as above , reducing atenolol dose (7) BPH (benign prostatic hyperplasia) Impression: on proscar and flomax continue (8) History of seizure Impression: he reports multiple sz's in past on gabapentin and tegretol (9) Full code status Impression: H/P notes uncertainty of full code status "I've got too much to live for" Will confirm this w/ family as well when they are back (10) Hypokalemia Impression: due to reduced PO K in IVF 20 meq po bid x 4 doses
[2016-08-11] MEDS: ALBUTEROL NEB 2.5 MG/3 ML INH SCH ×3 (11:02→20:28)
[2016-08-11] MEDS: carBAMazepine 200 MG TABLET PO SCH ×2 (12:08→18:04)
[2016-08-11] MEDS: MULTIVITAMIN TABLET PO SCH (12:14)
[2016-08-11] MEDS: GABAPENTIN 100 MG CAPSULE PO SCH (12:14)
[2016-08-11] MEDS ORDERED: ATENOLOL 25 MG TABLET PO SCH (14:06)
[2016-08-11] MEDS: TAMSULOSIN 0.4 MG CAPSULE PO SCH (18:03)
[2016-08-11] MEDS: FINASTERIDE 5 MG TABLET PO SCH (18:03)
[2016-08-11] MEDS: POTASSIUM CHLORIDE 20 MEQ TABLET PO SCH (18:04)
[2016-08-11] MEDS: ACETAMINOPHEN 325 MG TABLET PO PRN (21:52)
[2016-08-12] MEDS: PIPERACILLIN/TAZOBACTAM 3.375 GM in SODIUM CHLORIDE 0.9% MINIBAG 100 ML IV SCH ×4 (03:20→19:46)
[2016-08-12] MEDS: SODIUM CHLORIDE FLUSH 0.9% 10 ML SYRINGE IVP SCH ×3 (05:23→19:46)
[2016-08-12] MEDS: D5.45NS W/20 MEQ KCL 1,000 ML IV SCH ×2 (05:23→16:48)
[2016-08-12 05:44] LABS: BASOPHILS % (AUTO) 0.1 %; EOSINOPHILS % (AUTO) 0.3 %; HCT - HEMATOCRIT 34.5 % (42.0-52.0); LYMPHOCYTES # (AUTO) 1.2 10^3/uL (1.5-3.5); LYMPHOCYTES % (AUTO) 13.1 %; MEAN CORPUSCULAR HEMOGLOBIN 35.2 pg (27.0-31.0); MEAN CORPUSCULAR HGB CONC 34.9 g/dL (32.0-36.0); MEAN PLATELET VOLUME 8.6 fL (7.4-11.4); MONOCYTES # (AUTO) 0.8 10^3/uL (0.0-1.0); MONOCYTES % (AUTO) 8.1 %; NEUTROPHILS # (AUTO) 7.3 10^3/uL (1.5-6.6); NEUTROPHILS % (AUTO) 78.4 %; RED BLOOD COUNT 3.41 10^6/uL (4.70-6.10); RED CELL DISTRIBUTION WIDTH 13.7 % (12.0-15.0); UNCORRECTED WHITE BLOOD COUNT 9.3 x10^3/uL; WHITE BLOOD COUNT 9.3 x10^3/uL (4.8-10.8)
[2016-08-12 05:54] LABS: ALBUMIN/GLOBULIN RATIO 1.1 (1.0-2.2); BILIRUBIN,TOTAL 0.7 mg/dL (0.2-1.0); BUN - BLOOD UREA NITROGEN 34 mg/dL (6-20); CALCIUM 8.1 mg/dL (8.5-10.3); CARBON DIOXIDE - CO2 33 mmol/L (21-32); CHLORIDE 102 mmol/L (101-111); GFR - MDRD 72 (>89); GLUCOSE 145 mg/dL (70-100); POTASSIUM 3.6 mmol/L (3.5-5.0); SODIUM 141 mmol/L (135-145); TOTAL PROTEIN 5.6 g/dL (6.7-8.2)
[2016-08-12 06:02] LABS: CALCIUM, IONIZED 1.1 mmol/L (1.15-1.33); VBG PH 7.369 (7.31-7.41)
[2016-08-12] MEDS: LEVOTHYROXINE 25 MCG TABLET PO SCH (06:10)
--- NOTE | 2016-08-12 07:35 | PROVIDER PROGRESS NOTE ---
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; "mild oral dysphagia r/t PD and missng molars; able to take this and solids w/o s/s/ of aspiration REcommm; dysphagia advanced diet, thins liquids, meds w/ waterh, Eat upright at 90 degrees He loves the ensure-plus Current Medications - Current Medications Current Medications: Active Medications Generic Name Dose Route Start Last Admin Trade Name Freq PRN Reason Stop Dose Admin Acetaminophen 650 mg 08/11/16 21:34 08/11/16 21:52 Tylenol PO 650 mg Q4HR PRN Administration Pain or Fever > 38C (100.4F) Albuterol 2.5 mg 08/10/16 22:49 INH RTQ4H PRN Wheezing Albuterol 2.5 mg 08/11/16 11:00 08/11/16 20:28 INH 2.5 mg RTQID FRANCISCO Administration Aspirin 81 mg 08/11/16 09:00 08/11/16 08:40 [facility] [place] Aspirin PO 81 mg DAILY FRANCISCO Administration Atenolol 25 mg 08/12/16 09:00 Tenormin PO DAILY FRANCISCO Carbamazepine 200 mg 08/11/16 12:00 08/11/16 18:04 Tegretol PO 200 mg 1200,1700 FRANCISCO Administration Carbidopa/Levodopa 2 tab 08/11/16 08:00 08/11/16 12:05 Sinemet 25 Mg/100 Mg PO 2 tab 0800,1200 FRANCISCO Administration Carbidopa/Levodopa 1 tab 08/11/16 17:00 08/11/16 21:52 Sinemet 25 Mg/100 Mg PO 1 tab 1700,2100 FRANCISCO Administration Cholecalciferol 2,000 unit 08/11/16 09:00 08/11/16 08:41 Vitamin D3 PO 2,000 unit DAILY FRANCISCO Administration Finasteride 5 mg 08/11/16 17:00 08/11/16 18:03 Proscar PO 5 mg DAILY@1700 FRANCISCO Administration Gabapentin 100 mg 08/11/16 12:00 08/11/16 12:14 Neurontin PO 100 mg QDLUNCH FRANCISCO Administration Gabapentin 300 mg 08/10/16 22:00 08/11/16 21:52 Neurontin PO 300 mg BID FRANCISCO Administration Heparin Sodium (Porcine) 5,000 unit 08/11/16 09:00 08/11/16 21:52 SUBQ 5,000 unit BID FRANCISCO Administration Piperacillin Sod/Tazobactam 100 mls @ 200 mls/hr 08/10/16 23:00 08/12/16 03:20 Sod 3.375 gm/ Sodium Chloride IV 200 mls/hr Q6H FRANCISCO Administration Potassium Chloride/Dextrose/Sod Cl 1,000 mls @ 100 mls/hr 08/11/16 08:00 05:23 D5.45ns W/20 Meq Kcl IV 100 mls/hr .Q10H FRANCISCO Administration Levothyroxine Sodium 50 mcg 08/11/16 07:00 08/12/16 06:10 Synthroid PO 50 mcg QDAC FRANCISCO Administration Multivitamins 1 tab 08/11/16 12:00 08/11/16 12:14 Theragran PO 1 tab QDLUNCH FRANCISCO Administration Ondansetron HCl 4 mg 08/10/16 21:04 Zofran Inj IVP Q6HR PRN Nausea / Vomiting Polyethylene Glycol 17 gm 08/11/16 09:00 08/11/16 08:40 Miralax PO 17 gm DAILY FRANCISCO Administration Potassium Chloride 20 meq 08/11/16 17:00 08/11/16 18:04 K-Dur PO 08/13/16 08:01 20 meq BIDWM FRANCISCO Administration Prednisone 5 mg 08/11/16 09:00 08/11/16 08:39 Deltasone PO 5 mg DAILY FRANCISCO Administration Sodium Chloride 10 ml 08/10/16 21:04 Normal Saline Flush 0.9% IVP PRN PRN NEEDED PER PROVIDER ORDERS Sodium Chloride 10 ml 08/10/16 22:00 08/12/16 05:23 Normal Saline Flush 0.9% IVP Not Given Q8HR FRANCISCO Tamsulosin HCl 0.4 mg 08/11/16 17:00 08/11/16 18:03 Flomax PO 0.4 mg DAILY@1700 FRANCISCO Administration Carbamazepine [Epitol] 200 mg PO 1200,1700 02/05/13 Dutasteride/Tamsulosin HCl [Debbi 0.5-0.4 mg Capsule] 0.4 - 0.5 mg PO 1700 02/05 Levothyroxine Sodium [Synthroid] 50 mcg PO QDAC 02/05/13 Aspirin 81 mg PO DAILY 12/28/13 Carbidopa/Levodopa 25/100 [Sinemet 25 mg/100 mg] 1 tab PO 1700,2100 06/18/15 Carbidopa/Levodopa [Carbidopa-Levodopa 25-100 Tab] 2 tab PO 0800,1200 09/23/15 Cholecalciferol (Vitamin D3) [Vitamin D3] 2,000 unit PO DAILY 09/23/15 Vortioxetine Hydrobromide [Trintellix] 10 mg PO DAILY 09/23/15 Gabapentin [Neurontin] 100 mg PO QDLUNCH 11/23/15 Multivitamin [Theragran] 1 each PO QDLUNCH 11/23/15 hydroCHLOROthiazide [Hydrodiuril] 25 mg PO DAILY 11/23/15 Atenolol [Tenormin] 25 mg PO BID 01/15/16 Albuterol Sulfate [Proair Hfa Inhaler] 2 puffs INH Q6H PRN 04/04/16 Gabapentin 300 mg PO BID 08/09/16 Objective - Vital Signs/Intake & Output Reviewed Vital Signs: Yes Vital Signs: Vital Signs x48h Temp Pulse Resp BP Pulse Ox 08/11/16 23:56 36.9 C 76 20 105/66 96 Intake & Output: Intake & Output 08/09/16 08/10/16 08/11/16 08/12/16 23:59 23:59 23:59 23:59 Intake Total 2355 842 Output Total 250 Balance 2105 842 - Objective General Appearance: positive: Other (had a bloody left nare this am, keeping tissue in his nare; bleeding has stopped (he picked his nose per RT) cachectic appearing, but animated, and seen walking with walker in jenkins with PT at a remarkable pace) ENT: positive: Other (sunken temples, poor dentition,) Respiratory: positive: No respiratory distress, Other (not wearing 02, no cough , no audible wheezing, decreased sounds thruoughout, old scar R lateral chest from old lobectomy. LLL crackles noted yesterday are not as pronounced today) Cardiovascular: positive: Regular rate & rhythm, No murmur, Other (very prominent ribs) Abdomen: positive: Nml bowel sounds, No distention (concave). negative: Tenderness Skin: positive: Warm, Dry Extremities: positive: No pedal edema, Other (Left burleson wound (skin tear) dressed by Casandra Reynolds from [facility]) - Lab Results Fish Bones: 08/12/16 05:16 08/12/16 05:16 Other Labs: Lab Results x24hrs 08/12/16 08/12/16 08/12/16 Range/Units 05:16 05:16 05:16 WBC 9.3 (4.8-10.8) x10^3/uL RBC 3.41 L (4.70-6.10) 10^6/uL Hgb 12.0 L (14.0-18.0) g/dL Hct 34.5 L (42.0-52.0) % MCV 101.0 H (80.0-94.0) fL MCH 35.2 H (27.0-31.0) pg MCHC 34.9 (32.0-36.0) g/dL RDW 13.7 (12.0-15.0) % Plt Count 108 L (130-450) 10^3/uL MPV 8.6 (7.4-11.4) fL Neut # 7.3 H (1.5-6.6) 10^3/uL Lymph # 1.2 L (1.5-3.5) 10^3/uL [place] # 0.8 (0.0-1.0) 10^3/uL Eos # 0.0 (0.0-0.7) 10^3/uL Baso # 0.0 (0.0-0.1) 10^3/uL Absolute Nucleated RBC 0.00 x10^3/uL Nucleated RBCs 0.0 /100WBC VBG pH 7.369 (7.31-7.41) Ionized Calcium 1.10 L YES (1.15-1.33) mmol/L Sodium 141 (135-145) mmol/L Potassium 3.6 (3.5-5.0) mmol/L Chloride 102 (101-111) mmol/L Carbon Dioxide 33 H (21-32) mmol/L Anion Gap 6.0 (6-13) BUN 34 H (6-20) mg/dL Creatinine 1.0 (0.6-1.2) mg/dL Estimated GFR (MDRD) 72 L (>89) Glucose 145 H (70-100) mg/dL Calcium 8.1 L (8.5-10.3) mg/dL Total Bilirubin 0.7 (0.2-1.0) mg/dL AST 33 (10-42) IU/L ALT < 10 L (10-60) IU/L Alkaline Phosphatase 48 (42-121) IU/L Total Protein 5.6 L (6.7-8.2) g/dL Albumin 2.9 L (3.2-5.5) g/dL Globulin 2.7 (2.1-4.2) g/dL Albumin/Globulin Ratio 1.1 (1.0-2.2) Assessment/Plan - Problem List (1) Left lower lobe pneumonia Impression: (1) Left lower lobe pneumonia Impression: 1 with suspiciaous aspiration (possible early aspiration pneumonia) and possible mucus plug 08/10, no leukocytosis; no indicatoin for repeat CBC in am sputum normal resp maurilio but passed a swallow eval today low grade temp 38.1 last night ~ 9:30p but no longer needs 02 continue zosyn> can likely change to Augmentin in am for D/C to [facility], low dose Prednisone (not sure of the indication for the 5mg daily he is getting, but it is on his home med list_ 2 )Falls and Failure to Thrive and Wt loss/ Geriatric Frailty Syndrome 08/12Much better today, has been up in chair, up w/ PT w/ walker, [facility] tomorrow 08/13 08/11progressive and multifactorial w/ progressive dementia PT evaluated today; final assessment not yet entered family was already realizing he needed LTC (also just had surgery). SW aware OOB to chair for all meals to avoid further deconditioning Qualifiers: Encounter type: initial encounter Qualified Code(s): W19.XXXA - Unspecified fall, initial encounter (2) Parkinsons disease Impression: Progressive/ advanced continue sinemet On trintellix at home for associated depression (4) Hypothyroidism Impression: continue LT4 (5) Atrial fibrillation Impression: 08/12 rate controlled on reduced atenolol per pharmacy recon,, he is NOT on any atenolol at home d/c'd today; His blood pressure DID tolerate the atenolol 25 mg ONCE daily dose (he was orthostatic yesterday so much better on reduced dose) 08/11with Hx of GI bleed on warfarin (so not on anticoagulation) rate controlled (reduced his atenolol from 25 bid to qd yesterday due to upright hypotension/orthostasis (6) Volume depletion Impression: Volume depletion and orthostasis ; still prerenal BUN /Cr 51/1.2>> 41/1.0?? 34 /1.0 continue IVF tonight, should be at baseline tomorrow, encourage PO at SNF amily reports he was not drinking at home when was home alone BUN improving, continue IVF orthostatic (which may be combination of volume depletion, autonomic dysfunction and atenolol , recheck chem (BUN) in am and orthostatics as above , reducing atenolol dose (7) BPH (benign prostatic hyperplasia) Impression: on proscar and flomax continue (8) History of seizure Impression: he reports multiple sz's in past on gabapentin and tegretol (9) Full code status Impression: H/P notes uncertainty of full code status "I've got too much to live for" Will confirm this w/ family as well when they are back (10) Hypokalemia Impression: improving (4 doses PO KCL 20 done ttomorrow am) 08/11 due to reduced PO K in IVF 20 meq po bid x 4 doses (2) Falls Qualifiers: Encounter type: initial encounter Qualified Code(s): W19.XXXA - Unspecified fall, initial encounter (5) Atrial fibrillation Qualifiers:
[2016-08-12] MEDS: ALBUTEROL NEB 2.5 MG/3 ML INH SCH ×2 (07:40→16:03)
[2016-08-12] MEDS: CARBIDOPA/LEVODOPA 25 MG/100 MG TABLET PO SCH ×4 (08:25→20:15)
[2016-08-12] MEDS: POLYETHYLENE GLYCOL 3350 17 GM PACKET PO SCH (08:26)
[2016-08-12] MEDS: HEPARIN 5,000 UNIT/ML VIAL SUBQ SCH ×2 (08:26→20:15)
[2016-08-12] MEDS: predniSONE 1 MG TABLET PO SCH (08:26)
[2016-08-12] MEDS: GABAPENTIN 300 MG CAPSULE PO SCH ×2 (08:26→20:15)
[2016-08-12] MEDS: POTASSIUM CHLORIDE 20 MEQ TABLET PO SCH ×2 (08:26→16:19)
[2016-08-12] MEDS: ASPIRIN CHEW 81 MG TABLET PO SCH (08:26)
[2016-08-12] MEDS: CHOLECALCIFEROL 1,000 UNIT TABLET PO SCH (08:43)
[2016-08-12] MEDS ORDERED: ATENOLOL 25 MG TABLET PO SCH (09:00)
[2016-08-12] MEDS: carBAMazepine 200 MG TABLET PO SCH ×2 (11:25→16:19)
[2016-08-12] MEDS: GABAPENTIN 100 MG CAPSULE PO SCH (11:25)
[2016-08-12] MEDS: MULTIVITAMIN TABLET PO SCH (11:25)
[2016-08-12] MEDS: FINASTERIDE 5 MG TABLET PO SCH (16:18)
[2016-08-12] MEDS: TAMSULOSIN 0.4 MG CAPSULE PO SCH (16:19)
[2016-08-12] MEDS ORDERED: LOPERAMIDE 2 MG CAPSULE PO SCH (18:42)
[2016-08-13] MEDS: D5.45NS W/20 MEQ KCL 1,000 ML IV SCH ×3 (01:22→13:27)
[2016-08-13] MEDS: PIPERACILLIN/TAZOBACTAM 3.375 GM in SODIUM CHLORIDE 0.9% MINIBAG 100 ML IV SCH ×4 (01:49→20:07)
[2016-08-13] MEDS ORDERED: METOPROLOL 5 MG/5 ML VIAL IVP SCH (03:00)
[2016-08-13] MEDS: SODIUM CHLORIDE FLUSH 0.9% 10 ML SYRINGE IVP SCH ×3 (05:34→22:12)
[2016-08-13] MEDS: LEVOTHYROXINE 25 MCG TABLET PO SCH (05:51)
[2016-08-13 06:33] LABS: CALCIUM 8.5 mg/dL (8.5-10.3); CREATININE 0.8 mg/dL (0.6-1.2); POTASSIUM 4.5 mmol/L (3.5-5.0)
[2016-08-13] MEDS: CHOLECALCIFEROL 1,000 UNIT TABLET PO SCH (07:45)
[2016-08-13] MEDS: POLYETHYLENE GLYCOL 3350 17 GM PACKET PO SCH (07:45)
[2016-08-13] MEDS: POTASSIUM CHLORIDE 20 MEQ TABLET PO SCH (07:45)
[2016-08-13] MEDS: SACCHAROMYCES BOULARDII 250 MG CAPSULE PO SCH ×2 (07:45→16:11)
[2016-08-13] MEDS: GABAPENTIN 300 MG CAPSULE PO SCH ×2 (07:45→22:11)
[2016-08-13] MEDS: predniSONE 1 MG TABLET PO SCH (07:45)
[2016-08-13] MEDS: CARBIDOPA/LEVODOPA 25 MG/100 MG TABLET PO SCH ×4 (07:45→22:11)
[2016-08-13] MEDS: ASPIRIN CHEW 81 MG TABLET PO SCH (07:46)
[2016-08-13] MEDS: HEPARIN 5,000 UNIT/ML VIAL SUBQ SCH ×2 (07:47→21:37)
[2016-08-13] MEDS: HYDROCORTISONE 25 MG SUPPOSITORY PR SCH ×3 (09:53→22:11)
[2016-08-13] MEDS: hydroCHLOROthiazide 25 MG TABLET PO SCH (09:53)
--- NOTE | 2016-08-13 12:11 | PROVIDER PROGRESS NOTE ---
Subjective - Prog Note Date Prog Note Date: 08/13/16 Prog Note Time: 12:10 - Subjective Pt reports feeling: Improved (pt report he felt better) Current Medications - Current Medications Current Medications: add HCTZ from home meds as pt had elevated BP Objective - Vital Signs/Intake & Output Vital Signs: Vital Signs x48h Temp Pulse Pulse Resp BP Pulse Ox 08/13/16 09:45 89 20 08/13/16 09:43 36.6 C 88 19 188/105 H 96 Intake & Output: Intake & Output 08/10/16 08/11/16 08/12/16 08/13/16 23:59 23:59 23:59 23:59 Intake Total 2355 2378 1520 Output Total 250 570 100 Balance 2105 1808 1420 - Objective General Appearance: positive: No acute distress, Alert Eyes Bilateral: positive: Normal inspection, PERRL ENT: positive: ENT inspection nml Neck: positive: Nml inspection, Trachea midline Respiratory: positive: Chest non-tender, Other (mild cracker sound at right lower lobe) Cardiovascular: positive: Regular rate & rhythm, No murmur Peripheral Pulses: 2+ Radial (R), 2+ Radial (L), 2+ Dorsalis pedis (R), 2+ Dorsalis pedis (L) Abdomen: positive: Non-tender, Nml bowel sounds, No distention Rectal: positive: Non-tender Back: positive: Nml inspection Skin: positive: Color nml, Warm Extremities: positive: Non-tender, Full ROM Neurologic/Psychiatric: positive: Motor nml, Sensation nml, Disoriented to time Reflexes: Knee (R): 2+, Knee (L): 2+ - Lab Results Fish Bones: 08/12/16 05:16 08/13/16 06:12 Other Labs: Lab Results x24hrs 08/13/16 Range/Units 06:12 Sodium 141 (135-145) mmol/L Potassium 4.5 (3.5-5.0) mmol/L Chloride 102 (101-111) mmol/L Carbon Dioxide 32 (21-32) mmol/L Anion Gap 7.0 (6-13) BUN 20 (6-20) mg/dL Creatinine 0.8 (0.6-1.2) mg/dL Estimated GFR (MDRD) 93 (>89) Glucose 137 H (70-100) mg/dL Calcium 8.5 (8.5-10.3) mg/dL Assessment/Plan - Problem List (1) HTN (hypertension) Impression: HTN, 08/13 pt has elevated BP, put back home BP meds HCTZ, recheck BP and closely monitor, since pt still had bilateral cracker lung, and pt was on and off hospital often , so add antibiotics watch caser works for pt discharge. If pt continues stable and find bed for pt , expect pt will be D/C tomorrow 1) Left lower lobe pneumonia Impression: 1 with suspiciaous aspiration (possible early aspiration pneumonia) and possible mucus plug 08/10, no leukocytosis; no indicatoin for repeat CBC in am sputum normal resp maurilio but passed a swallow eval today low grade temp 38.1 last night ~ 9:30p but no longer needs 02 continue zosyn> can likely change to Augmentin in am for D/C to [facility], nebs, low dose Prednisone (not sure of the indication for the 5mg daily he is getting, but it is on his home med list_ 2 )Falls and Failure to Thrive and Wt loss/ Geriatric Frailty Syndrome 08/12Much better today, has been up in chair, up w/ PT w/ walker, [facility] tomorrow 08/13 08/11progressive and multifactorial w/ progressive dementia PT evaluated today; final assessment not yet entered family was already realizing he needed LTC (also just had surgery). SW aware OOB to chair for all meals to avoid further deconditioning Qualifiers: Encounter type: initial encounter Qualified Code(s): W19.XXXA - Unspecified fall, initial encounter (2) Parkinsons disease Impression: Progressive/ advanced continue sinemet On trintellix at home for associated depression (4) Hypothyroidism Impression: continue LT4 (5) Atrial fibrillation Impression: 08/12 rate controlled on reduced atenolol per pharmacy recon,, he is NOT on any atenolol at home d/c'd today; His blood pressure DID tolerate the atenolol 25 mg ONCE daily dose (he was orthostatic yesterday so much better on reduced dose) 08/11with Hx of GI bleed on warfarin (so not on anticoagulation) rate controlled (reduced his atenolol from 25 bid to qd yesterday due to upright hypotension/orthostasis (6) Volume depletion Impression: Volume depletion and orthostasis ; still prerenal BUN /Cr 51/1.2>> 41/1.0?? 34 /1.0 continue IVF tonight, should be at baseline tomorrow, encourage PO at SNF amily reports he was not drinking at home when was home alone BUN improving, continue IVF orthostatic (which may be combination of volume depletion, autonomic dysfunction and atenolol , recheck chem (BUN) in am and orthostatics as above , reducing atenolol dose (7) BPH (benign prostatic hyperplasia) Impression: on proscar and flomax continue (8) History of seizure Impression: he reports multiple sz's in past on gabapentin and tegretol (9) Full code status Impression: H/P notes uncertainty of full code status "I've got too much to live for" Will confirm this w/ family as well when they are back (10) Hypokalemia Impression: improving (4 doses PO KCL 20 done ttomorrow am) 08/11 due to reduced PO K in IVF 20 meq po bid x 4 doses (2) Falls Qualifiers: Encounter type: initial encounter Qualified Code(s): W19.XXXA - Unspecified fall, initial encounter (5) Atrial fibrillation Qualifiers:
[2016-08-13] MEDS: GABAPENTIN 100 MG CAPSULE PO SCH (12:39)
[2016-08-13] MEDS: MULTIVITAMIN TABLET PO SCH (12:39)
[2016-08-13] MEDS: carBAMazepine 200 MG TABLET PO SCH ×2 (12:39→16:11)
[2016-08-13] MEDS: FINASTERIDE 5 MG TABLET PO SCH (16:11)
[2016-08-13] MEDS: TAMSULOSIN 0.4 MG CAPSULE PO SCH (16:11)
[2016-08-13] MEDS: ACETAMINOPHEN 325 MG TABLET PO PRN (16:11)
[2016-08-13] MEDS ORDERED: LORazepam 2 MG/ML SYRINGE IVP SCH (17:00)
[2016-08-13] MEDS ORDERED: OLANZapine 10 MG VIAL IM ONE (18:12)
[2016-08-13] MEDS ORDERED: OLANZapine 10 MG VIAL IM SCH (18:17)
[2016-08-13] MEDS: VANCOMYCIN INJ 1 GM in SODIUM CHLORIDE 0.9% 250 ML IV SCH (21:27)
[2016-08-13] MEDS ORDERED: WATER FOR INJECTION,STERILE 10 ML ONE ×2 (21:29→22:02)
[2016-08-13] MEDS: ZIPRASIDONE 20 MG VIAL IM PRN ×2 (21:38→22:04)
[2016-08-14] MEDS: PIPERACILLIN/TAZOBACTAM 3.375 GM in SODIUM CHLORIDE 0.9% MINIBAG 100 ML IV SCH ×4 (02:00→20:03)
[2016-08-14] MEDS: SODIUM CHLORIDE FLUSH 0.9% 10 ML SYRINGE IVP SCH ×3 (04:57→22:40)
[2016-08-14] MEDS: LEVOTHYROXINE 25 MCG TABLET PO SCH (06:07)
[2016-08-14 08:30] LABS: BASOPHILS % (AUTO) 0.3 %; EOSINOPHILS % (AUTO) 0.3 %; HCT - HEMATOCRIT 39.5 % (42.0-52.0); HGB - HEMOGLOBIN 13.7 g/dL (14.0-18.0); LYMPHOCYTES # (AUTO) 0.9 10^3/uL (1.5-3.5); LYMPHOCYTES % (AUTO) 10.3 %; MEAN CORPUSCULAR HEMOGLOBIN 34.4 pg (27.0-31.0); MEAN CORPUSCULAR HGB CONC 34.7 g/dL (32.0-36.0); MEAN CORPUSCULAR VOLUME 99.3 fL (80.0-94.0); MONOCYTES # (AUTO) 0.8 10^3/uL (0.0-1.0); MONOCYTES % (AUTO) 9.1 %; NEUTROPHILS # (AUTO) 7.2 10^3/uL (1.5-6.6); RED BLOOD COUNT 3.97 10^6/uL (4.70-6.10); RED CELL DISTRIBUTION WIDTH 12.9 % (12.0-15.0)
[2016-08-14 08:37] LABS: ALBUMIN/GLOBULIN RATIO 0.9 (1.0-2.2); BILIRUBIN,TOTAL 1.1 mg/dL (0.2-1.0); CALCIUM 8.9 mg/dL (8.5-10.3); CREATININE 0.9 mg/dL (0.6-1.2); POTASSIUM 4.2 mmol/L (3.5-5.0); TOTAL PROTEIN 6.7 g/dL (6.7-8.2)
[2016-08-14] MEDS: VANCOMYCIN INJ 1 GM in SODIUM CHLORIDE 0.9% 250 ML IV SCH ×2 (09:59→20:51)
[2016-08-14] MEDS: predniSONE 1 MG TABLET PO SCH (10:29)
[2016-08-14] MEDS: SACCHAROMYCES BOULARDII 250 MG CAPSULE PO SCH ×2 (10:29→18:45)
[2016-08-14] MEDS: GABAPENTIN 300 MG CAPSULE PO SCH ×2 (10:30→20:59)
[2016-08-14] MEDS: HEPARIN 5,000 UNIT/ML VIAL SUBQ SCH ×2 (10:30→21:00)
[2016-08-14] MEDS: CHOLECALCIFEROL 1,000 UNIT TABLET PO SCH (10:30)
[2016-08-14] MEDS: ASPIRIN CHEW 81 MG TABLET PO SCH (10:30)
[2016-08-14] MEDS: CARBIDOPA/LEVODOPA 25 MG/100 MG TABLET PO SCH ×4 (10:30→20:54)
[2016-08-14] MEDS: POLYETHYLENE GLYCOL 3350 17 GM PACKET PO SCH (10:31)
[2016-08-14] MEDS: HYDROCORTISONE 25 MG SUPPOSITORY PR SCH ×2 (10:31→21:03)
[2016-08-14] MEDS: hydroCHLOROthiazide 25 MG TABLET PO SCH (10:34)
[2016-08-14] MEDS ORDERED: WATER FOR INJECTION,STERILE 10 ML ONE (11:08)
[2016-08-14] MEDS: ZIPRASIDONE 20 MG VIAL IM PRN (11:10)
--- NOTE | 2016-08-14 11:27 | PROVIDER PROGRESS NOTE ---
Subjective - Prog Note Date Prog Note Date: 08/14/16 (n) Prog Note Time: 11:25 Objective - Vital Signs/Intake & Output Vital Signs: Vital Signs x48h Temp Pulse Resp BP Pulse Ox 08/14/16 08:16 36.7 C 100 22 175/89 H 94 08/14/16 06:04 21 Intake & Output: Intake & Output 08/11/16 08/12/16 08/13/16 08/14/16 23:59 23:59 23:59 23:59 Intake Total 2355 2378 2260 Output Total 250 570 100 Balance 2105 1808 2160 - Objective General Appearance: positive: Alert Eyes Bilateral: positive: Normal inspection, PERRL ENT: positive: ENT inspection nml, Pharynx nml Neck: positive: Nml inspection, Trachea midline Respiratory: positive: Chest non-tender, Other (pt's breathing sound is better than yesterday) Cardiovascular: positive: Regular rate & rhythm, No murmur Peripheral Pulses: 2+ Radial (R), 2+ Radial (L), 2+ Dorsalis pedis (R), 2+ Dorsalis pedis (L) Abdomen: positive: Non-tender, Nml bowel sounds, No distention Back: positive: Nml inspection Skin: positive: Color nml, Warm Extremities: positive: Non-tender, Full ROM Neurologic/Psychiatric: positive: Motor nml, Sensation nml, Disoriented to place , Disoriented to time - Lab Results Fish Bones: 08/14/16 08:10 08/14/16 08:20 Other Labs: Lab Results x24hrs 08/14/16 08/14/16 Range/Units 08:20 08:10 WBC 9.0 (4.8-10.8) x10^3/uL RBC 3.97 L (4.70-6.10) 10^6/uL Hgb 13.7 L (14.0-18.0) g/dL Hct 39.5 L (42.0-52.0) % MCV 99.3 H (80.0-94.0) fL MCH 34.4 H (27.0-31.0) pg MCHC 34.7 (32.0-36.0) g/dL RDW 12.9 (12.0-15.0) % Plt Count 145 (130-450) 10^3/uL MPV 9.0 (7.4-11.4) fL Neut # 7.2 H (1.5-6.6) 10^3/uL Lymph # 0.9 L (1.5-3.5) 10^3/uL [place] # 0.8 (0.0-1.0) 10^3/uL Eos # 0.0 (0.0-0.7) 10^3/uL Baso # 0.0 (0.0-0.1) 10^3/uL Absolute Nucleated RBC 0.00 x10^3/uL Nucleated RBCs 0.0 /100WBC Sodium 140 (135-145) mmol/L Potassium 4.2 (3.5-5.0) mmol/L Chloride 98 L (101-111) mmol/L Carbon Dioxide 32 (21-32) mmol/L Anion Gap 10.0 (6-13) BUN 14 (6-20) mg/dL Creatinine 0.9 (0.6-1.2) mg/dL Estimated GFR (MDRD) 81 L (>89) Glucose 97 (70-100) mg/dL Calcium 8.9 (8.5-10.3) mg/dL Total Bilirubin 1.1 H (0.2-1.0) mg/dL AST 44 H (10-42) IU/L ALT 40 (10-60) IU/L Alkaline Phosphatase 72 (42-121) IU/L Total Protein 6.7 (6.7-8.2) g/dL Albumin 3.2 (3.2-5.5) g/dL Globulin 3.5 (2.1-4.2) g/dL Albumin/Globulin Ratio 0.9 L (1.0-2.2) Assessment/Plan - Problem List (1) HTN (hypertension) Impression: pt was agitated and restless at morning, now he is better controlled. Pt's bilateral lung cracker sound is decreased. Add Duoneb with the same antibiotics to pt
[2016-08-14] MEDS: IPRATROPIUM/ALBUTEROL 3 ML NEB INH SCH ×2 (11:30→15:20)
[2016-08-14] MEDS ORDERED: IOPAMIDOL-300 100 ML VIAL IVP ONE (12:15)
[2016-08-14] MEDS: GABAPENTIN 100 MG CAPSULE PO SCH (14:01)
[2016-08-14] MEDS: MULTIVITAMIN TABLET PO SCH (14:01)
[2016-08-14] MEDS: carBAMazepine 200 MG TABLET PO SCH ×2 (14:01→18:45)
--- NOTE | 2016-08-14 14:50 | CT Report ---
CONTRAST ENHANCED CT EXAM OF THE CHEST: 08/14/2016 CLINICAL HISTORY: The patient has worsening symptoms, congestion and cough. COMPARISON: Previous CT was from 10/13/2015. TECHNIQUE: The patient received 100 mL of Isovue-370 as the contrast agent. A CT scan of the chest wa s done at 5 x 5 mm intervals with axial, coronal and sagittal reconstruction images. FINDINGS: The mediastinum shows several small lymph nodes in the anterior carinal region measuring 0 .9 cm and 0.7 cm. These lymph nodes appear slightly larger today than on preceding exam when they arnaud sured 0.5 cm and 0.4 cm. Left ventricular hypertrophy is seen. Vascular calcification is noted in the thoracic aorta with mild ectasia. The mediastinum shows significant deviation towards the right. This is the result of reduction in rig ht lung volume. The patient has had prior surgery. Surgical clips are seen in and about the right sup rahilar region. Elevation on the right hilum is noted. A cavity is seen in the right upper lobe once again measuring 9 cm by 5.3 cm by 3.3 cm. In associatio n with this cavity, in the right lung apex that extends medially towards the mediastinum, is pronounc ed apical pleural thickening and retraction of the right hilum superiorly. There is associated scarri ng noted in the right upper lobe and about the right hilum. Mild pulmonary hyperaeration is noted in the remaining portion of the right lung. Some mild scarring is also seen in the right lower lobe. No significant change in the right lung is seen as compared to preceding exam. The left lung does show c hange with now an infiltrate seen within the posterior aspect of the anterior segment of the left upp er lobe. This focal area of patchy consolidation silhouettes the major fissure and most likely repres ents an acute pneumonia. There is now also noted mild parenchymal disease about the right perihilar r egion. There is associated pleural thickening or small pleural effusion along the posterior aspect of the in ferior half of the left hemithorax. Adjacent to this pleural finding, are two small nodules in the le ft lower lobe. These each measure 1 cm in diameter. They were not present on preceding exam. They may represent nodular infiltrates or lesions related to metastatic disease or granulomatous disease. In addition, there is new parenchymal disease in the inferior segment of the left lower lobe. This was n ot noted on preceding exam and is consistent with a pneumonia or aspiration. The bones show several healed old left posterior rib fractures. Mild anterior spurring is seen in the thoracic spine. The upper abdomen shows no new abnormality. IMPRESSION: 1. EVIDENCE OF PARTIAL RIGHT LUNG RESECTION SPECIFICALLY THE RIGHT UPPER LOBE. ASSOCIATED CHANGES REL ATED TO THIS PARTIAL RIGHT LUNG RESECTION INCLUDE A CAVITY IN THE RIGHT LUNG APEX, RETRACTION OF THE RIGHT HILUM SUPERIORLY, SURGICAL CLIPS IN AND ABOUT THE RIGHT HILUM, AND SIGNIFICANT DEVIATION OF THE MEDIASTINUM TOWARDS THE RIGHT. PRONOUNCED PLEURAL SCARRING IS NOTED AT THE RIGHT LUNG APEX. MILD SCA RRING IS ALSO NOTED ABOUT THE RIGHT PERIHILAR REGION WITH EXTENSION INTO THE RIGHT UPPER AND RIGHT LO WER LOBES. THESE ADDITIONAL FINDINGS ARE RELATED TO PATIENT'S SURGERY AND POSSIBLY PRIOR RADIATION TH ERAPY. 2. THE LEFT LUNG DEMONSTRATES NEW INFILTRATES IN THE POSTERIOR ASPECT OF THE ANTERIOR SEGMENT OF THE LEFT UPPER LOBE AND IN THE INFERIOR SEGMENT OF THE LEFT LOWER LOBE. ASSOCIATED PLEURAL THICKENING OR LOCULATED PLEURAL EFFUSION IS NOW NOTED ALONG THE POSTERIOR ASPECT OF THE INFERIOR HALF OF THE LEFT L ISMA. THESE FINDINGS MOST LIKELY ARE THE RESULT OF A PNEUMONIA. 3. TWO SMALL NODULES ARE NOTED IN THE MID POSTERIOR ASPECT OF THE LEFT LUNG EACH MEASURING 1 CM IN DI AMETER. THEY WERE NOT SEEN PREVIOUSLY. ETIOLOGICAL CONSIDERATIONS INCLUDE NODULAR CONSOLIDATION RELAT ED TO ACUTE PNEUMONIA, METASTATIC DISEASE, OR GRANULOMATOUS DISEASE. RECOMMEND A REPEAT CT EXAM IN TW O MONTHS FOR FURTHER EVALUATION. 4. TWO MILDLY ENLARGED ANTERIOR CARINAL LYMPH NODES ARE NOTED. THESE SHOW MILD INCREASE IN SIZE CO MPARED TO PRECEDING EXAM OF 10/13/2015. THESE ARE NONSPECIFIC. THESE SHOULD BE FOLLOWED WITH A REPEAT CT EXAM IN TWO MONTHS. COMMENT: Dr. Sanchez informed patient's healthcare provider, Martino, nurse practitioner, of the ivana jiménez findings and recommendations. This was done on 08/14/2016 at 2:[address] In accordance with CT protocol optimization, one or more of the following dose reduction techniques w ere utilized for this exam: automated exposure control, adjustment of mA and/or KV based on patient size, or use of iterative reconstructive technique. JOB #: [id number] EXT JOB #:[id number]
[2016-08-14] MEDS: TAMSULOSIN 0.4 MG CAPSULE PO SCH (18:44)
[2016-08-14] MEDS: FINASTERIDE 5 MG TABLET PO SCH (18:45)
[2016-08-15] MEDS: PIPERACILLIN/TAZOBACTAM 3.375 GM in SODIUM CHLORIDE 0.9% MINIBAG 100 ML IV SCH ×3 (02:16→14:35)
[2016-08-15] MEDS: IPRATROPIUM/ALBUTEROL 3 ML NEB INH SCH ×4 (02:30→15:04)
[2016-08-15] MEDS: SODIUM CHLORIDE FLUSH 0.9% 10 ML SYRINGE IVP SCH ×2 (05:41→14:35)
[2016-08-15] MEDS: LEVOTHYROXINE 25 MCG TABLET PO SCH (05:52)
[2016-08-15 07:39] LABS: BASOPHILS # (AUTO) 0.1 10^3/uL (0.0-0.1); BASOPHILS % (AUTO) 0.7 %; EOSINOPHILS # (AUTO) 0.1 10^3/uL (0.0-0.7); EOSINOPHILS % (AUTO) 1.1 %; HCT - HEMATOCRIT 36.8 % (42.0-52.0); HGB - HEMOGLOBIN 12.6 g/dL (14.0-18.0); LYMPHOCYTES # (AUTO) 1.3 10^3/uL (1.5-3.5); LYMPHOCYTES % (AUTO) 17.6 %; MEAN CORPUSCULAR HEMOGLOBIN 34.5 pg (27.0-31.0); MEAN CORPUSCULAR HGB CONC 34.3 g/dL (32.0-36.0); MEAN CORPUSCULAR VOLUME 100.6 fL (80.0-94.0); MEAN PLATELET VOLUME 8.6 fL (7.4-11.4); MONOCYTES # (AUTO) 0.6 10^3/uL (0.0-1.0); MONOCYTES % (AUTO) 8.2 %; NEUTROPHILS # (AUTO) 5.2 10^3/uL (1.5-6.6); NEUTROPHILS % (AUTO) 72.4 %; RED BLOOD COUNT 3.66 10^6/uL (4.70-6.10); RED CELL DISTRIBUTION WIDTH 13.5 % (12.0-15.0); UNCORRECTED WHITE BLOOD COUNT 7.2 x10^3/uL; WHITE BLOOD COUNT 7.2 x10^3/uL (4.8-10.8)
[2016-08-15] MEDS: CHOLECALCIFEROL 1,000 UNIT TABLET PO SCH (07:49)
[2016-08-15] MEDS: SACCHAROMYCES BOULARDII 250 MG CAPSULE PO SCH (07:49)
[2016-08-15] MEDS: predniSONE 1 MG TABLET PO SCH (07:49)
[2016-08-15] MEDS: VANCOMYCIN INJ 1 GM in SODIUM CHLORIDE 0.9% 250 ML IV SCH (07:49)
[2016-08-15] MEDS: ASPIRIN CHEW 81 MG TABLET PO SCH (07:50)
[2016-08-15] MEDS: CARBIDOPA/LEVODOPA 25 MG/100 MG TABLET PO SCH ×2 (07:50→11:14)
[2016-08-15] MEDS: GABAPENTIN 300 MG CAPSULE PO SCH (07:50)
[2016-08-15] MEDS: hydroCHLOROthiazide 25 MG TABLET PO SCH (07:50)
[2016-08-15 07:51] LABS: ALBUMIN/GLOBULIN RATIO 0.9 (1.0-2.2); CALCIUM 8.6 mg/dL (8.5-10.3); CREATININE 1.1 mg/dL (0.6-1.2); POTASSIUM 3.5 mmol/L (3.5-5.0); TOTAL PROTEIN 5.9 g/dL (6.7-8.2)
[2016-08-15] MEDS: HEPARIN 5,000 UNIT/ML VIAL SUBQ SCH (07:51)
[2016-08-15] MEDS: POLYETHYLENE GLYCOL 3350 17 GM PACKET PO SCH (07:51)
[2016-08-15] MEDS: HYDROCORTISONE 25 MG SUPPOSITORY PR SCH (07:51)
[2016-08-15 08:18] VITALS: BP 152/80
[2016-08-15] MEDS: ACETAMINOPHEN 325 MG TABLET PO PRN (09:00)
[2016-08-15] MEDS: GABAPENTIN 100 MG CAPSULE PO SCH (11:14)
[2016-08-15] MEDS: carBAMazepine 200 MG TABLET PO SCH (11:14)
[2016-08-15] MEDS: MULTIVITAMIN TABLET PO SCH (11:14)
--- NOTE | 2016-08-15 16:39 | DISCHARGE SUMMARY ---
DATE OF ADMISSION: 08/11/2016 DATE OF DISCHARGE: 08/15/2016 PCP: Don Ram. CC: Mariano Garcia; Don Ram Admission Diagnosis: Weakness Failure to thrive Dehydration Recurrent Pneumonia COPD Parkinson's disease Hypothyroidism HTN Afib Discharge Diagnosis Weakness: improved with PT and OT Failure to thrive: consult with ST, public defender, pt's appetite better Dehydration: resolved Recurrent pneumonia: room air SO2 97-93 %, no cough, no fever, no SOB, lung sound much better COPD: stable, continue home medications Parkinson's disease: managed with Sinemet Hypothyroidism: stable HTN: controlled, stable delirium: resolved Afib: stable HOSPITAL COURSE: The patient came hospital with recurrent pneumonia, failure to thrive, with hx of Parkinson's, COPD, hypertension, BPH, and chronic atrial fibrillation and Coumadin was discontinued because of GI bleeding. Pt developed confusion and delirium in the hospital course. Now this problem is resolved, pt become as his base line. Patient's Recurrent pneumonia is significantly improved: room air SO2 97-93 %, no cough, no fever, no SOB, lung sound much clear. Patient want to be discharged today. The patient will be discharged to SNF. Pt had a CT. In the CT it was found 2 small nodules, in the left lower lobe. the patient and family was informed and advised to have following CT in 2 months for closely monitor. The patient is advised to see the PCP in 2 weeks and do the chest x-ray in 2 weeks and also have a CT of the chest in 2 months to closely monitor nodules. Also, the patient prescribed with Augmentin 500 b.i.d. for 14 days. The patient's questions and family's concerns are answered. Allergy: Venom-honey bee Home medications: Aspirin 81 mg PO daily, Albuterol inhaler 2 puff INH Q6H PRN SOB, Trintellix 10 mg PO daily, Multivitamin 1 tab po daily, synthroid 50 mcg PO daily, Gabapentin 100 mg PO at lunch 300 mg po bid, Dutasteride/tamsulosin 0.4 mg po daily, vit D3 2000 unit po daily, Sinemet 25/100 1 tab po bid at 1700 2100 2 tab PO 0800, 1200, Epitol 200 mg po bid, prednisone 5 mg daily, HCTZ 25 mg po daily. activity: as tolerated Diet: cardiac diet time spending around 50 min JOB #: [id number] EXT JOB #:[id number]
== END 2016-08-15 15:36 | DRG 194 ==
LOC: EDUNIT# → EDBD → ED 17:46 → MS 21:04 → OBSVTOIN 08-11 12:06 → MS 08-11 14:15
PROVIDERS: ADMIT Internal Medicine; ATTEND Nurse Practitioner Gerontology
DX: J18.9 Pneumonia, unspecified organism (principal); Z68.1 Body mass index [BMI] 19.9 or less, adult; R26.2 Difficulty in walking, not elsewhere classified; G20 Parkinson's disease; F02.80 Dementia in other diseases classified elsewhere, unspecified severity, without behavioral disturbance, psychotic disturbance, mood disturbance, and anxiety; I48.2 Chronic atrial fibrillation; E86.0 Dehydration; E87.6 Hypokalemia; J44.9 Chronic obstructive pulmonary disease, unspecified; E03.9 Hypothyroidism, unspecified; I10 Essential (primary) hypertension; R62.7 Adult failure to thrive; R63.4 Abnormal weight loss; G62.9 Polyneuropathy, unspecified; R91.8 Other nonspecific abnormal finding of lung field; N40.1 Benign prostatic hyperplasia with lower urinary tract symptoms; N39.498 Other specified urinary incontinence; R56.9 Unspecified convulsions; I73.9 Peripheral vascular disease, unspecified; M81.0 Age-related osteoporosis without current pathological fracture; M19.90 Unspecified osteoarthritis, unspecified site; F32.9 Major depressive disorder, single episode, unspecified; Z79.82 Long term (current) use of aspirin; Z79.51 Long term (current) use of inhaled steroids; Z79.52 Long term (current) use of systemic steroids; Z79.899 Other long term (current) drug therapy; Z87.891 Personal history of nicotine dependence; Z85.118 Personal history of other malignant neoplasm of bronchus and lung; Z95.828 Presence of other vascular implants and grafts; Z91.81 History of falling; Z90.2 Acquired absence of lung [part of]
CPT/HCPCS: 36415; 36600; 51701; 71010; 71020; 71260; 80048; 80053; 80156; 81001; 81003; 82330; 82803; 83690; 85025; 87070; 87086; 87205; 87493; 94640; 96365; 96366; 99284; 99285

== ENCOUNTER 2016-08-30 11:45 | Outpatient (CLI) | payer MEDICAID, MEDICARE, OTHER ==
[2016-08-30 16:01] LABS: BASOPHILS # (AUTO) 0.1 10^3/uL (0.0-0.1); BASOPHILS % (AUTO) 0.8 %; EOSINOPHILS # (AUTO) 0.2 10^3/uL (0.0-0.7); EOSINOPHILS % (AUTO) 2.1 %; HCT - HEMATOCRIT 38.6 % (42.0-52.0); HGB - HEMOGLOBIN 13.4 g/dL (14.0-18.0); LYMPHOCYTES # (AUTO) 0.9 10^3/uL (1.5-3.5); LYMPHOCYTES % (AUTO) 11.9 %; MEAN CORPUSCULAR HGB CONC 34.8 g/dL (32.0-36.0); MEAN CORPUSCULAR VOLUME 100.7 fL (80.0-94.0); MEAN PLATELET VOLUME 8.4 fL (7.4-11.4); MONOCYTES # (AUTO) 0.6 10^3/uL (0.0-1.0); MONOCYTES % (AUTO) 7.7 %; NEUTROPHILS # (AUTO) 5.8 10^3/uL (1.5-6.6); NEUTROPHILS % (AUTO) 77.5 %; RED BLOOD COUNT 3.83 10^6/uL (4.70-6.10); RED CELL DISTRIBUTION WIDTH 13.7 % (12.0-15.0); UNCORRECTED WHITE BLOOD COUNT 7.5 x10^3/uL; WHITE BLOOD COUNT 7.5 x10^3/uL (4.8-10.8)
[2016-08-30 16:06] LABS: ALBUMIN/GLOBULIN RATIO 1.1 (1.0-2.2); BILIRUBIN,TOTAL 0.7 mg/dL (0.2-1.0); CALCIUM 9.5 mg/dL (8.5-10.3); CREATININE 0.8 mg/dL (0.6-1.2); POTASSIUM 3.2 mmol/L (3.5-5.0); TOTAL PROTEIN 7.3 g/dL (6.7-8.2)
[2016-08-30 16:11] LABS: HEMOGLOBIN A1C 0.55 g/dL
== END 2016-08-30 11:46 | disposition home or self-care (01) ==
LOC: LAB.R 11:45
DX: N18.9 Chronic kidney disease, unspecified (principal); D64.9 Anemia, unspecified; E11.9 Type 2 diabetes mellitus without complications; E03.9 Hypothyroidism, unspecified
CPT/HCPCS: 80053; 83036; 84443; 85025

== ENCOUNTER 2016-09-13 08:00 | Outpatient (CLI) | payer MEDICAID, MEDICARE, OTHER ==
[2016-09-13 21:38] LABS: CALCIUM 9.2 mg/dL (8.5-10.3); POTASSIUM 3.5 mmol/L (3.5-5.0)
[2016-09-13 21:41] LABS: BASOPHILS # (AUTO) 0.1 10^3/uL (0.0-0.1); BASOPHILS % (AUTO) 0.6 %; EOSINOPHILS # (AUTO) 0.1 10^3/uL (0.0-0.7); EOSINOPHILS % (AUTO) 1.2 %; HCT - HEMATOCRIT 36.4 % (42.0-52.0); HGB - HEMOGLOBIN 12.4 g/dL (14.0-18.0); LYMPHOCYTES # (AUTO) 0.8 10^3/uL (1.5-3.5); LYMPHOCYTES % (AUTO) 7.5 %; MEAN CORPUSCULAR HEMOGLOBIN 34.7 pg (27.0-31.0); MEAN CORPUSCULAR HGB CONC 34.1 g/dL (32.0-36.0); MEAN CORPUSCULAR VOLUME 101.5 fL (80.0-94.0); MEAN PLATELET VOLUME 8.9 fL (7.4-11.4); MONOCYTES # (AUTO) 0.7 10^3/uL (0.0-1.0); MONOCYTES % (AUTO) 6.9 %; NEUTROPHILS # (AUTO) 8.7 10^3/uL (1.5-6.6); NEUTROPHILS % (AUTO) 83.8 %; RED BLOOD COUNT 3.59 10^6/uL (4.70-6.10); RED CELL DISTRIBUTION WIDTH 14.1 % (12.0-15.0); UNCORRECTED WHITE BLOOD COUNT 10.3 x10^3/uL; WHITE BLOOD COUNT 10.3 x10^3/uL (4.8-10.8)
== END 2016-09-13 08:01 | disposition home or self-care (01) ==
LOC: LAB.R 08:00
DX: J44.9 Chronic obstructive pulmonary disease, unspecified (principal); D64.9 Anemia, unspecified
CPT/HCPCS: 80048; 85025

== ENCOUNTER 2016-09-16 20:28 | Outpatient (CLI) | payer MEDICARE, MEDICAID | END 2016-09-16 20:29 | disposition critical access hospital (66) | LOC: EMS 20:28 | PROVIDERS: ATTEND Surgery | DX: R09.89 Other specified symptoms and signs involving the circulatory and respiratory systems (principal) | CPT/HCPCS: A0425; A0429 ==

== ENCOUNTER 2016-09-16 20:31 | Inpatient (IN) | payer MEDICARE, MEDICAID ==
--- NOTE | 2016-09-16 20:50 | ED Physician Documentation ---
History of Present Illness - Stated complaint Stated Complaint: WEAKNESS, LETHARGIC - Chief complaint Chief Complaint: Resp - History obtained from History obtained from: Patient, EMS, Caregiver ([facility]) - History of Present Illness Timing: How many days ago (2) Improved by: no ameliorating factors Worsened by: coughing - Additonal information Additional information: sent from COW for 2 days of worsening dyspnea, cough, generalized weakness. BIBA Review of Systems Constitutional: reports: Fatigue. denies: Fever Eyes: reports: Reviewed and negative Ears: reports: Reviewed and negative Nose: reports: Reviewed and negative Throat: reports: Reviewed and negative Cardiac: reports: Reviewed and negative Respiratory: reports: Dyspnea, Cough GI: reports: Reviewed and negative : denies: Dysuria, Frequency Skin: reports: Reviewed and negative Musculoskeletal: reports: Reviewed and negative Neurologic: reports: Generalized weakness. denies: Headache PD PAST MEDICAL HISTORY - Past Medical History Cardiovascular: Atrial fibrillation Respiratory: COPD Neuro: Parkinson's Endocrine/Autoimmune: HyPOthyroidism GI: None : Benign prostate hypertrophy HEENT: None Psych: None Musculoskeletal: Osteoarthritis Derm: Other - Past Surgical History Past Surgical History: Yes General: Other Cardiovascular: Lobectomy HEENT: Cataracts - Present Medications Home Medications: Ambulatory Orders Medication Instructions Recorded Confirmed Carbamazepine [Epitol] 200 mg PO 1200,1700 02/05/13 09/16/16 Dutasteride/Tamsulosin HCl [Debbi 0.4 - 0.5 mg PO 1700 02/05/13 09/16/16 0.5-0.4 mg Capsule] Levothyroxine Sodium [Synthroid] 50 mcg PO QDAC 02/05/13 09/16/16 Aspirin 81 mg PO DAILY 12/28/13 09/16/16 Carbidopa/Levodopa 25/100 [Sinemet 1 tab PO 1700,2100 06/18/15 09/16/16 25 mg/100 mg] Carbidopa/Levodopa 2 tab PO 0800,1200 09/23/15 09/16/16 [Carbidopa-Levodopa 25-100 Tab] Cholecalciferol (Vitamin D3) 2,000 unit PO DAILY 09/23/15 09/16/16 [Vitamin D3] Vortioxetine Hydrobromide 10 mg PO DAILY 09/23/15 09/16/16 [Trintellix] Gabapentin [Neurontin] 100 mg PO QDLUNCH 11/23/15 09/16/16 Multivitamin [Theragran] 1 each PO QDLUNCH 11/23/15 09/16/16 hydroCHLOROthiazide [Hydrodiuril] 25 mg PO DAILY 11/23/15 09/16/16 Albuterol Sulfate [Proair Hfa 2 puffs INH Q6H PRN 04/04/16 09/16/16 Inhaler] predniSONE [Deltasone] 5 mg PO DAILY tablet 04/04/16 08/12/16 Gabapentin 300 mg PO BID 08/09/16 09/16/16 Azithromycin [Azithromycin] 250 mg ORAL DAILY 09/16/16 09/16/16 - Allergies Allergies/Adverse Reactions: Allergies Allergy/AdvReac Type Severity Reaction Status Date / Time venom-honey bee Allergy Severe Respiratory Verified 09/16/16 20:36 [bee venom (honey bee)] - Social History Does the pt smoke?: No Smoking Status: Former smoker Does the pt drink ETOH?: No Does the pt have substance abuse?: No - Immunizations Immunizations are current?: Yes PD ED PE NORMAL - Vitals Vital signs reviewed: Yes - General General: Alert and oriented X 3, Well developed/nourished, Other (mild respiratory distress: tachypneic and speaks in 1-2 word sentences) - HEENT HEENT: Moist mucous membranes - Neck Neck: Supple, no meningeal sign - Cardiac Cardiac: RRR, No murmur - Abdomen Abdomen: Soft, Non tender - Derm Derm: Normal color, Warm and dry - Extremities Extremities: No edema PD ED PE EXPANDED - Respiratory Respiratory: Rhonchi, Decreased breath sounds Results - Vitals Vitals: Vital Signs - 24 hr 09/16/16 09/16/16 09/16/16 20:32 22:21 22:43 Temperature 37.2 C Heart Rate 89 62 111 H Respiratory 28 H 26 H 24 Rate Blood Pressure 159/84 H 133/68 H 124/71 O2 Saturation 83 L 100 09/16/16 22:45 Temperature 37.5 C Heart Rate Respiratory Rate Blood Pressure O2 Saturation Oxygen O2 Source [With Activity] Nasal cannula O2 Source Nasal cannula Oxygen Flow Rate 2 - Labs Labs: Laboratory Tests 09/16/16 09/16/16 09/16/16 21:15 21:15 21:15 WBC 11.4 H RBC 3.80 L Hgb 13.4 L Hct 39.2 L MCV 103.2 H MCH 35.4 H MCHC 34.3 RDW 14.6 Plt Count 259 MPV 8.3 Neut # 10.3 H Lymph # 0.3 L Fountain # 0.6 Eos # 0.1 Baso # 0.1 Absolute Nucleated RBC 0.02 Nucleated RBCs 0.1 Manual Slide Review Indicated WBC Morphology NORMAL APPEARANCE Platelet Estimate NORMAL (130-450,000) Platelet Morphology RARE GIANT PLATELETS RBC Morph Micro Appear 1+ MACROCYTOSIS PT 12.6 INR 1.1 APTT 22.9 L Sodium 141 Potassium 3.8 Chloride 94 L Carbon Dioxide 36 H Anion Gap 11.0 BUN 37 H Creatinine 0.9 Estimated GFR (MDRD) 81 L Glucose 179 H Lactic Acid Calcium 9.5 B-Natriuretic Peptide Urine Color Urine Clarity Urine pH Ur Specific [place] Urine Protein Urine Glucose (UA) Urine Ketones Urine Occult Blood Urine Nitrite Urine Bilirubin Urine Urobilinogen Ur Leukocyte Esterase Ur Microscopic Review Urine Culture Comments 09/16/16 09/16/16 09/16/16 21:15 21:15 21:45 WBC RBC Hgb Hct MCV MCH MCHC RDW Plt Count MPV Neut # Lymph # [place] # Eos # Baso # Absolute Nucleated RBC Nucleated RBCs Manual Slide Review WBC Morphology Platelet Estimate Platelet Morphology RBC Morph Micro Appear PT INR APTT Sodium Potassium Chloride Carbon Dioxide Anion Gap BUN Creatinine Estimated GFR (MDRD) Glucose Lactic Acid 3.0 H* Calcium B-Natriuretic Peptide 208 H Urine Color YELLOW Urine Clarity CLEAR Urine pH 6.0 Ur Specific [place] 1.020 Urine Protein TRACE Urine Glucose (UA) NEGATIVE Urine Ketones NEGATIVE Urine Occult Blood NEGATIVE Urine Nitrite NEGATIVE Urine Bilirubin NEGATIVE Urine Urobilinogen 0.2 (NORMAL) Ur Leukocyte Esterase NEGATIVE Ur Microscopic Review NOT INDICATED Urine Culture Comments NOT INDICATED - Rads (name of study) chest xray Radiology: Prelim report reviewed, See rad report PD MEDICAL DECISION MAKING - ED course Complexity details: reviewed old records, reviewed results, re-evaluated patient , considered differential, d/w patient Departure - Departure Disposition: 66 [facility] DC/Xfer Clinical Impression: Pneumonia Qualifiers: Pneumonia type: due to unspecified organism Laterality: left Lung location: lower lobe of lung Qualified Code(s): J18.1 - Lobar pneumonia, unspecified organism Condition: Stable Discharge Date/Time: 09/17/16 00:00
[2016-09-16] MEDS ORDERED: FUROSEMIDE 40 MG/4 ML VIAL IVP STA (21:02)
[2016-09-16] MEDS ORDERED: FUROSEMIDE 40 MG/4 ML VIAL ONE (21:17)
[2016-09-16] MEDS ORDERED: FUROSEMIDE 20 MG/2 ML VIAL IVP ONE (21:24)
[2016-09-16 21:29] LABS: BASOPHILS # (AUTO) 0.1 10^3/uL (0.0-0.1); BASOPHILS % (AUTO) 0.5 %; EOSINOPHILS # (AUTO) 0.1 10^3/uL (0.0-0.7); EOSINOPHILS % (AUTO) 0.9 %; HCT - HEMATOCRIT 39.2 % (42.0-52.0); HGB - HEMOGLOBIN 13.4 g/dL (14.0-18.0); LYMPHOCYTES # (AUTO) 0.3 10^3/uL (1.5-3.5); MEAN CORPUSCULAR HEMOGLOBIN 35.4 pg (27.0-31.0); MEAN CORPUSCULAR HGB CONC 34.3 g/dL (32.0-36.0); MEAN CORPUSCULAR VOLUME 103.2 fL (80.0-94.0); MEAN PLATELET VOLUME 8.3 fL (7.4-11.4); MONOCYTES # (AUTO) 0.6 10^3/uL (0.0-1.0); MONOCYTES % (AUTO) 5.1 %; NEUTROPHILS # (AUTO) 10.3 10^3/uL (1.5-6.6); NEUTROPHILS % (AUTO) 90.5 %; NUCLEATED RED BLOOD CELLS AUTO 0.1 /100WBC; RED CELL DISTRIBUTION WIDTH 14.6 % (12.0-15.0); UNCORRECTED WHITE BLOOD COUNT 11.4 x10^3/uL; WHITE BLOOD COUNT 11.4 x10^3/uL (4.8-10.8)
[2016-09-16 21:33] LABS: CALCIUM 9.5 mg/dL (8.5-10.3); CREATININE 0.9 mg/dL (0.6-1.2); POTASSIUM 3.8 mmol/L (3.5-5.0)
--- NOTE | 2016-09-16 21:48 | XRAY Preliminary Report ---
Exam: XR Chest 1 View IMPRESSION: 1. Increasing acute on chronic lung disease consisting of increasing left lung base infiltrate. 2. New slight interstitial prominence throughout the rest of the lungs consistent with either very ea rly interstitial edema, versus new airway disease. [facility] SITE ID: [id number]
[2016-09-16 21:56] LABS: BILIRUBIN,URINE NEGATIVE (NEGATIVE)
[2016-09-16 21:58] LABS: INR 1.1 (0.8-1.2); PT - PROTHROMBIN TIME 12.6 secs (9.9-12.6)
[2016-09-16 21:59] LABS: UA CHARGE (STRIP ONLY) YES; UR CULTURE IF IND NOT INDICATED
[2016-09-16 22:03] LABS: PLATELET ESTIMATE, MANUAL NORMAL (130-450,000) (NORMAL); PLATELET MORPHOLOGY RARE GIANT PLATELETS (NORMAL)
--- NOTE | 2016-09-16 22:03 | XRAY Report ---
EXAM: CHEST RADIOGRAPHY EXAM DATE: 09/16/2016 09:34 PM. CLINICAL HISTORY: Dyspnea. COMPARISON: 08/11/2016. 08/10/2016. TECHNIQUE: 1 view. FINDINGS: Lungs/Pleura: Remote right upper lobectomy. Chronic lung disease. Slight interval increase in the focal interstitial infiltrate left lung base with new slight intersti tial prominence throughout the rest of the lungs. No effusion or pneumothorax. Mediastinum: Stable moderate left to right mediastinal shift. Heart is of normal caliber. Stable widened superior mediastinum. Other: Old postoperative changes right ribs. IMPRESSION: 1. Increasing acute on chronic lung disease consisting of increasing left lung base infiltrate. 2. New slight interstitial prominence throughout the rest of the lungs consistent with either very ea rly interstitial edema, versus new airway disease. [facility] Referring Provider Line: [phone] SITE ID: [id number]
[2016-09-16 22:04] LABS: WBC MORPHOLOGY (MULTIPLE) NORMAL APPEARANCE (NORMAL)
[2016-09-16 22:05] LABS: PARTIAL THROMBOPLASTIN TIME 22.9 secs (24.9-33.3)
[2016-09-16] MEDS ORDERED: PIPERACILLIN/TAZOBACTAM 3.375 GM in SODIUM CHLORIDE 0.9% MINIBAG 100 ML IV STA ×2 (22:32→23:03)
[2016-09-16] MEDS ORDERED: SODIUM CHLORIDE 0.9% MINIBAG 100 ML IV ONE (22:36)
[2016-09-16] MEDS ORDERED: ONDANSETRON 4 MG/2 ML VIAL IVP PRN (22:48)
[2016-09-16] MEDS ORDERED: SODIUM CHLORIDE FLUSH 0.9% 10 ML SYRINGE IVP PRN (22:48)
[2016-09-16] MEDS ORDERED: D5.45NS W/20 MEQ KCL 1,000 ML IV SCH (23:00)
[2016-09-16] MEDS ORDERED: ALBUTEROL NEB 2.5 MG/3 ML INH PRN (23:04)
[2016-09-16] MEDS: IPRATROPIUM/ALBUTEROL 3 ML NEB INH SCH (23:13)
[2016-09-16] MEDS ORDERED: VANCOMYCIN PER PHARMACY 0.00001 GM in SODIUM CHLORIDE 0.9% 250 ML IV PRN (23:45)
--- NOTE | 2016-09-16 23:56 | HISTORY & PHYSICAL EXAMINATION ---
Chief Complaint - Chief Complaint Chief Complaint: altered mental status, hypoxia History of Present Illness - Admitted From Admitted From:: ED, COW - History Obtained From Records Reviewed: EMR History obtained from: ER - History of Present Illness HPI Comment/Other: this patient was admitte with pneumonia last month, after a downward spiral at home. He was felt to have failure to thrive. He was still extraord at discharge , so was sent to [facility] for rehabilitation. Apparently, over the l last couple of days, he has had falling O2 saturations. He was treated with for possible pneumonia. Today he was sent back to ER, for depressed mental status, and oxygen saturation not responding to O2 by nasal cannula.ER evaluation showed O2 saturations in the low 80s, and very rhonchorous breath sounds. He was given Lasix pending labs and x-ray, but these tests are more consistent wit pneumonia and dehydration. He currently is fairly lethargic, keeping his eyes closed. He denies pain. He does follow some commands. His history he appears q quite unreliable. There is no one else here to give a history. 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 Hypothyroidism BPH Parkinson's disease Hypertension Osteoarthritis Peripheral artery disease Chronic atrial fibrillation, Coumadin discontinued due to GI bleed past surgical history: Right lung lobectomy,, right leg arterial stent,, hernia repair, bilateral cataract surgeries Medications: reported as: Prednisone 5 mg daily Hydrochlorothiazide 25 mg daily trintellix 10 mg daily Multivitamin daily Levothyroxine 50 mcg daily Gabapentin 100 mg daily at lunch and 300 mg twice a day Dutasteride/tamsulosin 0.5-0.4 daily every afternoon Vitamin D 2000 units daily Sinemet 25/100 one twice a day at 1720 and 2100 Carbidopa-levodopa 25-100 , 2 tabs at 8 AM and noon Tegretol 200 mg at 1217 100 (Atenolol 25 mg twice a day??) Aspirin 81 mg daily Albuterol inhaler 2 puffs every 6 h Acetaminophen 650 mg every 4 hours when necessary zithromax for last 4 days allergies: Honeybee venom social history: The patient lives w, but she just recently had major surgery. They have 3 children and 5 grandchildren. The patient generally walks with a walker. 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 He has a [id number] smoking history, He has one alcoholic drink per day. He does not use drugs. Family history : both parents are in their 70s, Another sister also of unknown cause. History - Past Medical History Cardiovascular: reports: Atrial fibrillation Respiratory: reports: COPD Neuro: reports: Parkinson's Endocrine/Autoimmune: reports: HyPOthyroidism GI: reports: None : reports: Benign prostate hypertrophy HEENT: reports: None Psych: reports: None Musculoskeletal: reports: Osteoarthritis Derm: reports: Other MRSA Hx?: No - Past Surgical History General: reports: Other Cardiovascular: reports: Lobectomy HEENT: reports: Cataracts - POLST Patient has POLST: Yes Meds/Allgy - Home Medications Home Medications: Ambulatory Orders Medication Instructions Recorded Confirmed Carbamazepine [Epitol] 200 mg PO 1200,1700 02/05/13 09/16/16 Dutasteride/Tamsulosin HCl [Debbi 0.4 - 0.5 mg PO 1700 02/05/13 09/16/16 0.5-0.4 mg Capsule] Levothyroxine Sodium [Synthroid] 50 mcg PO QDAC 02/05/13 09/16/16 Aspirin 81 mg PO DAILY 12/28/13 09/16/16 Carbidopa/Levodopa 25/100 [Sinemet 1 tab PO 1700,2100 06/18/15 09/16/16 25 mg/100 mg] Carbidopa/Levodopa 2 tab PO 0800,1200 09/23/15 09/16/16 [Carbidopa-Levodopa 25-100 Tab] Cholecalciferol (Vitamin D3) 2,000 unit PO DAILY 09/23/15 09/16/16 [Vitamin D3] Vortioxetine Hydrobromide 10 mg PO DAILY 09/23/15 09/16/16 [Trintellix] Gabapentin [Neurontin] 100 mg PO QDLUNCH 11/23/15 09/16/16 Multivitamin [Theragran] 1 each PO QDLUNCH 11/23/15 09/16/16 hydroCHLOROthiazide [Hydrodiuril] 25 mg PO DAILY 11/23/15 09/16/16 Albuterol Sulfate [Proair Hfa 2 puffs INH Q6H PRN 04/04/16 09/16/16 Inhaler] predniSONE [Deltasone] 5 mg PO DAILY tablet 04/04/16 08/12/16 Gabapentin 300 mg PO BID 08/09/16 09/16/16 Azithromycin [Azithromycin] 250 mg ORAL DAILY 09/16/16 09/16/16 - Allergies Allergies/Adverse Reactions: Allergies Allergy/AdvReac Type Severity Reaction Status Date / Time venom-honey bee Allergy Severe Respiratory Verified 09/16/16 20:36 [bee venom (honey bee)] Exam - Vital Signs Reviewed Vital Signs: Yes Vital Signs: Vital Signs x48h Temp Pulse Resp BP Pulse Ox 09/16/16 23:53 75 19 122/83 H 09/16/16 23:26 113 H 20 98 09/16/16 23:13 122 H 20 09/16/16 22:45 37.5 C 09/16/16 22:43 111 H 24 124/71 100 09/16/16 22:21 62 26 H 133/68 H 09/16/16 20:32 37.2 C 89 28 H 159/84 H 83 L he is a very thin, frail appearing white male. He is mostly nonverbal. He is fidgeting in bed, and may be trying to get up, but is too weak. Head: Normocephalic, atraumatic Eyes: pupils appear a little u unequal, but patient is uncooperative with eye opening. Both are reactive to light. anicteric. Pharynx: Teeth are in poor condition. Mucosa appears fairly moist. Posterior pharynx did not show exudates. Neck: Appears supple, without lymphadenopathy, obvious JVD, bruits, thyromegaly. Cardiac shows an irregularly irregular rhythm, with very distant heart sounds.rate is tachycardiac at 140. Lungs: Have generally decreased breath sounds, with scattered crackles. I do not hear significant wheezing Abdomen: Is scaphoid, but soft , without guarding or rebound.. Bowel sounds are active. Extremities: show no significant edema, cyanosis, clubbing. Skin exam: He has numerous minor bruises and a few scabs.skin exhibits tenting, and is very fragile. Neurologic exam:the patient is able to follow some commands, but keeps his eyes clos, and is mostly nonverbal. He moves around a lot, and appears to trying to get out of bed. Conclusion/Plan - Lab Results Fish Bones: 09/16/16 21:15 09/16/16 21:15 Other Lab Results: CBC differential shows 10,300 neutrophil, 300 lymphocytes, rare giant platelets , 1+ macrocytosis Pro time is 12, INR!>!< PTT 22 Lacticacidemia is elevated at 3.0 BNP is elevated at 208 Urinalysis shows negative nitrites, negative leukocyte est, specific gravity 1.020 chest x-ray: Shows chronic lung dis, with slight interval increase in focal infiltrate of left lung base and new interstitial prominence throughout the rest of lungs. Issues/Core Measures - Anticipated LOS Anticipated Stay Length: 2 or more midnights - Issues Hospital Issues and Management Plan: 1. Pulmonary. acute on chronic respiratory failure. Patient presents with hypoxia, and evidence of possible left basilar pneumonia. he also has long-standing diffuse lung disease. And also lung nodules. -this patient is at high risk for aspiration. -admit, monitor. -Duo nebs, albuterol nebs as need, oxygen, pulmonary toilet. -Cover with IV Zosyn and vancomycin, to cover healthcare associated pneumonia.Patient is just finish of Zithromax. he also had very thick ropy sputum during his last admissio mucus plugging. -COPD: As above. #2. CODE STATUS DO NOT resuscitate. #3.neurologic. Progressive decline related to Parkinson's Continue current Medications. #4.hypothyroidism. Continue Levothyroxine. #5. History of BPH. Monitor urine output, post void Residuals. #6. Hypertension. Monitor. #7. History of chronic A. f fibrillation. Coumadin held due to GI bleed. Continue aspirin. -rate is not controlled this evening, and I suspect it is aggravated by pneumonia and dehydration. -IV fluids. -IV Lopressor when necessary. #8. DVT prophylaxis: Subcutaneous heparin. 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 this visit took approximately 55 minutes, to review his case with the ER Shawn, review old records, test results, examine him, and write orders
[2016-09-17] MEDS ORDERED: METOPROLOL 5 MG/5 ML VIAL IVP PRN (01:13)
[2016-09-17] MEDS: D5.45NS W/20 MEQ KCL 1,000 ML IV SCH ×3 (01:49→19:52)
[2016-09-17] MEDS ORDERED: SODIUM CHLORIDE 0.9% 500 ML IV ONE (02:41)
[2016-09-17] MEDS ORDERED: SODIUM CHLORIDE 0.9% 250 ML IV ONE (02:43)
[2016-09-17] MEDS: VANCOMYCIN INJ 1 GM in SODIUM CHLORIDE 0.9% 250 ML IV SCH (03:02)
[2016-09-17] MEDS: SODIUM CHLORIDE FLUSH 0.9% 10 ML SYRINGE IVP SCH ×3 (05:56→23:17)
[2016-09-17] MEDS ORDERED: NON FORMULARY MED (Levothyroxine Sodium [Synthroid] 50 MCG) PO SCH (07:00)
[2016-09-17] MEDS: IPRATROPIUM/ALBUTEROL 3 ML NEB INH SCH ×4 (08:12→22:30)
[2016-09-17] MEDS ORDERED: VORTIOXETINE HYDROBROMIDE 10 MG PO SCH (09:00)
[2016-09-17] MEDS ORDERED: ASPIRIN 81 MG PO SCH (09:00)
[2016-09-17] MEDS: GABAPENTIN 300 MG CAPSULE PO SCH ×2 (09:00→20:16)
[2016-09-17] MEDS ORDERED: NON FORMULARY MED (Cholecalciferol (Vitamin D3) [Vitamin D3] 2,000 UNIT) PO SCH (09:00)
[2016-09-17] MEDS: HEPARIN 5,000 UNIT/ML VIAL SUBQ SCH ×2 (09:46→20:16)
[2016-09-17] MEDS: guaiFENesin 600 MG TABLET PO SCH ×2 (09:46→20:16)
[2016-09-17] MEDS: CARBIDOPA/LEVODOPA 25 MG/100 MG TABLET PO SCH ×4 (09:48→20:16)
[2016-09-17] MEDS: predniSONE 5 MG TABLET PO SCH (09:48)
[2016-09-17] MEDS ORDERED: ACETAMINOPHEN/CODEINE 300 MG/30 MG TABLET PO PRN (10:58)
[2016-09-17] MEDS: MULTIVITAMIN TABLET PO SCH (12:42)
[2016-09-17] MEDS: carBAMazepine 200 MG TABLET PO SCH ×2 (12:42→17:44)
[2016-09-17] MEDS: GABAPENTIN 100 MG CAPSULE PO SCH (12:51)
[2016-09-17] MEDS: ACETAMINOPHEN 325 MG TABLET PO PRN ×2 (15:02→23:03)
[2016-09-17] MEDS ORDERED: MIN OIL/DIMETHICON/COCONUT OIL 92 GM TUBE TOP PRN (16:14)
[2016-09-17] MEDS ORDERED: DUTASTERIDE PO SCH (17:00)
[2016-09-17] MEDS ORDERED: TAMSULOSIN PO SCH (17:00)
--- NOTE | 2016-09-17 17:41 | PROVIDER PROGRESS NOTE ---
Assessment/Plan - Problem List (1) Atrial fibrillation Qualifiers: Atrial fibrillation type: chronic Qualified Code(s): I48.2 - Chronic atrial fibrillation (2) Pneumonia Qualifiers: Pneumonia type: due to unspecified organism Laterality: left Lung location: lower lobe of lung Qualified Code(s): J18.1 - Lobar pneumonia, unspecified organism Assessment/Plan: Pt had witnessed coughing/choking on food by his RN, who informed me about this today. Aspiration may be the cause of recurrent pneumonia. Swallowing eval ordered and Speech Therapist was unable to have Pt awake long enough to follow commands regarding swallowing, will re-assess tomorrow. (3) COPD (chronic obstructive pulmonary disease) Qualifiers: COPD type: COPD with acute lower respiratory infection Qualified Code(s): J44.0 - Chronic obstructive pulmonary disease with acute lower respiratory infection (4) Decreased urine output Assessment/Plan: with Hx of BPH. Will monitor output. Intake is poor due to lethargy and choking. Getting swallowing eval. (5) Aortic stenosis Qualifiers: Cardiac valve disease etiology: etiology unspecified Qualified Code(s): I35.0 - Nonrheumatic aortic (valve) stenosis Assessment/Plan: Chronic, stable - Current Meds Current Meds: Current Medications Generic Name Dose Route Start Last Admin Trade Name Freq PRN Reason Stop Dose Admin Acetaminophen 650 mg 09/16/16 22:48 09/17/16 15:02 Tylenol PO 650 mg Q4HR PRN Administration Pain 1 to 4 Albuterol/Ipratropium 3 ml 09/16/16 23:45 09/17/16 13:30 Duoneb INH 3 ml Q6H FRANCISCO Administration Carbamazepine 200 mg 09/17/16 12:00 09/17/16 12:42 Tegretol PO 200 mg 1200,1700 FRANCISCO Administration Carbidopa/Levodopa 2 tab 09/17/16 08:00 09/17/16 12:42 Sinemet 25 Mg/100 Mg PO 2 tab 0800,1200 FRANCISCO Administration Gabapentin 100 mg 09/17/16 12:00 09/17/16 12:51 Neurontin PO 100 mg QDLUNCH FRANCISCO Administration Gabapentin 300 mg 09/17/16 09:00 09/17/16 09:00 Neurontin PO 300 mg BID FRANCISCO Administration Guaifenesin 600 mg 09/17/16 09:00 09/17/16 09:46 Mucinex PO 600 mg BID FRANCISCO Administration Heparin Sodium (Porcine) 5,000 unit 09/17/16 09:00 09/17/16 09:46 SUBQ 5,000 unit BID FRANCISCO Administration Potassium Chloride/Dextrose/Sod Cl 1,000 mls @ 125 mls/hr 09/17/16 01:14 11:53 D5.45ns W/20 Meq Kcl IV 125 mls/hr .Q8H FRANCISCO Administration Vancomycin HCl 1 gm/ Sodium 250 mls @ 167 mls/hr 09/17/16 03:00 09/17/16 03:02 Chloride IV 167 mls/hr Q24H FRANCISCO Administration Multivitamins 1 tab 09/17/16 12:00 09/17/16 12:42 Theragran PO 1 tab QDLUNCH FRANCISCO Administration Prednisone 5 mg 09/17/16 09:00 09/17/16 09:48 Deltasone PO 5 mg DAILY FRANCISCO Administration Sodium Chloride 10 ml 09/17/16 06:00 09/17/16 14:56 Normal Saline Flush 0.9% IVP 10 ml Q8HR FRANCISCO Administration - Lab Result Lab results reviewed: Yes Fish Bone Diagrams: 09/16/16 21:15 09/16/16 21:15 - Diagnostic Imaging Results Diagnostic Imaging Results: Prelim report reviewed, Final report reviewed - Other Other Results/Comments: Rate controlled - Additional Planning Condition/Complexity: Guarded My Orders: My Active Orders 09/17/16 Clinical Swallow Eval w/Modified ST [ST] Routine 09/17/16 16:14 Min Oil/Dimeth/Coconut Oil Crm [Cavilon] 1 applic TOP PRN PRN 09/17/16 Dinner Dysphagia Puree Diet [DIET] Objective Vital Signs: Vital Signs - 24 hr 09/16/16 09/16/16 09/16/16 23:13 23:26 23:53 Temperature Heart Rate 122 H 113 H 75 Heart Rate [ Brachial] Respiratory 20 20 19 Rate Blood Pressure 122/83 H Blood Pressure [Left Brachial artery] Blood Pressure [Right Brachial artery] O2 Saturation 98 09/17/16 09/17/16 09/17/16 00:45 04:49 06:48 Temperature 36.8 C 36.7 C Heart Rate Heart Rate [ 56 L 96 Brachial] Respiratory 36 H 24 Rate Blood Pressure Blood Pressure 120/54 L [Left Brachial artery] Blood Pressure [Right Brachial artery] O2 Saturation 91 L 100 09/17/16 09/17/16 09/17/16 08:17 08:51 10:23 Temperature 36.8 C Heart Rate 88 Heart Rate [ 99 Brachial] Respiratory 14 28 H Rate Blood Pressure Blood Pressure [Left Brachial artery] Blood Pressure 127/61 [Right Brachial artery] O2 Saturation 90 L 94 09/17/16 09/17/16 13:32 14:37 Temperature 36.7 C Heart Rate 94 Heart Rate [ 101 H Brachial] Respiratory 18 20 Rate Blood Pressure Blood Pressure [Left Brachial artery] Blood Pressure 107/62 [Right Brachial artery] O2 Saturation 95 Oxygen O2 Source Nasal cannula I&O (Last 24 Hrs): Intake and Output Totals x24h 09/15/16 09/16/16 09/17/16 23:59 23:59 23:59 Intake Total 100 1790 Output Total 500 1 Balance -400 1789 General: Other (Lethargic. Awakens to name.) HEENT: Other (Dry mucosa) Cardiovascular: Other (Distant heart sounds) Respiratory: No respiratory distress, Other (Diminished brath sounds diffusely. no rles or rhonchi) Extremities: No edema, Other (Several ecchymoses of both ant shins) - Results Results: Laboratory Results WBC 11.4 x10^3/uL (4.8-10.8) H 09/16/16 21:15 RBC 3.80 10^6/uL (4.70-6.10) L 09/16/16 21:15 Hgb 13.4 g/dL (14.0-18.0) L 09/16/16 21:15 Hct 39.2 % (42.0-52.0) L 09/16/16 21:15 MCV 103.2 fL (80.0-94.0) H 09/16/16 21:15 MCH 35.4 pg (27.0-31.0) H 09/16/16 21:15 MCHC 34.3 g/dL (32.0-36.0) 09/16/16 21:15 RDW 14.6 % (12.0-15.0) 09/16/16 21:15 Plt Count 259 10^3/uL (130-450) 09/16/16 21:15 MPV 8.3 fL (7.4-11.4) 09/16/16 21:15 Neut # 10.3 10^3/uL (1.5-6.6) H 09/16/16 21:15 Lymph # 0.3 10^3/uL (1.5-3.5) L 09/16/16 21:15 Wise # 0.6 10^3/uL (0.0-1.0) 09/16/16 21:15 Eos # 0.1 10^3/uL (0.0-0.7) 09/16/16 21:15 Baso # 0.1 10^3/uL (0.0-0.1) 09/16/16 21:15 Absolute Nucleated RBC 0.02 x10^3/uL 09/16/16 21:15 Nucleated RBCs 0.1 /100WBC 09/16/16 21:15 Manual Slide Review Indicated 09/16/16 21:15 WBC Morphology NORMAL APPEARANCE (NORMAL) 09/16/16 21:15 Platelet Estimate NORMAL (130-450,000) (NORMAL) 09/16/16 21:15 Platelet Morphology RARE GIANT PLATELETS (NORMAL) 09/16/16 21:15 RBC Morph Micro Appear 1+ ANISOCYTOSIS (NORMAL) 1+ MACROCYTOSIS (NORMAL) 21:15 RBC Morph Micro Appear 1+ ANISOCYTOSIS (NORMAL) 1+ MACROCYTOSIS (NORMAL) 21:15 PT 12.6 secs (9.9-12.6) 09/16/16 21:15 INR 1.1 (0.8-1.2) 09/16/16 21:15 APTT 22.9 secs (24.9-33.3) L 09/16/16 21:15 Sodium 141 mmol/L (135-145) 09/16/16 21:15 Potassium 3.8 mmol/L (3.5-5.0) 09/16/16 21:15 Chloride 94 mmol/L (101-111) L 09/16/16 21:15 Carbon Dioxide 36 mmol/L (21-32) H 09/16/16 21:15 Anion Gap 11.0 (6-13) 09/16/16 21:15 BUN 37 mg/dL (6-20) H 09/16/16 21:15 Creatinine 0.9 mg/dL (0.6-1.2) 09/16/16 21:15 Estimated GFR (MDRD) 81 (>89) L 09/16/16 21:15 Glucose 179 mg/dL (70-100) H 09/16/16 21:15 Lactic Acid 3.0 mmol/L (0.5-2.2) H* 09/16/16 21:15 Calcium 9.5 mg/dL (8.5-10.3) 09/16/16 21:15 B-Natriuretic Peptide 208 pg/mL (5-100) H 09/16/16 21:15 Folate 11.69 ng/mL (5.90 - >24.8) 09/17/16 11:24 Urine Color YELLOW 09/16/16 21:45 Urine Clarity CLEAR (CLEAR) 09/16/16 21:45 Urine pH 6.0 PH (5.0-7.5) 09/16/16 21:45 Ur Specific [place] 1.020 (1.002-1.030) 09/16/16 21:45 Urine Protein TRACE mg/dL (NEGATIVE) 09/16/16 21:45 Urine Glucose (UA) NEGATIVE mg/dL (NEGATIVE) 09/16/16 21:45 Urine Ketones NEGATIVE mg/dL (NEGATIVE) 09/16/16 21:45 Urine Occult Blood NEGATIVE (NEGATIVE) 09/16/16 21:45 Urine Nitrite NEGATIVE (NEGATIVE) 09/16/16 21:45 Urine Bilirubin NEGATIVE (NEGATIVE) 09/16/16 21:45 Urine Urobilinogen 0.2 (NORMAL) E.U./dL (NORMAL) 09/16/16 21:45 Ur Leukocyte Esterase NEGATIVE (NEGATIVE) 09/16/16 21:45 Ur Microscopic Review NOT INDICATED 09/16/16 21:45 Urine Culture Comments NOT INDICATED 09/16/16 21:45
[2016-09-17] MEDS ORDERED: LORazepam 2 MG/ML SYRINGE IVP STA (22:59)
[2016-09-17] MEDS ORDERED: LORazepam 2 MG/ML SYRINGE ONE (23:07)
[2016-09-18] MEDS: D5.45NS W/20 MEQ KCL 1,000 ML IV SCH ×3 (01:45→11:43)
[2016-09-18] MEDS: VANCOMYCIN INJ 1 GM in SODIUM CHLORIDE 0.9% 250 ML IV SCH (02:49)
[2016-09-18 04:48] LABS: BASOPHILS # (AUTO) 0.1 10^3/uL (0.0-0.1); BASOPHILS % (AUTO) 0.6 %; EOSINOPHILS # (AUTO) 0.3 10^3/uL (0.0-0.7); EOSINOPHILS % (AUTO) 3.5 %; HCT - HEMATOCRIT 32.2 % (42.0-52.0); HGB - HEMOGLOBIN 10.9 g/dL (14.0-18.0); LYMPHOCYTES % (AUTO) 10.2 %; MEAN CORPUSCULAR HEMOGLOBIN 35.2 pg (27.0-31.0); MEAN CORPUSCULAR HGB CONC 33.9 g/dL (32.0-36.0); MEAN CORPUSCULAR VOLUME 103.9 fL (80.0-94.0); MEAN PLATELET VOLUME 8.2 fL (7.4-11.4); MONOCYTES # (AUTO) 0.5 10^3/uL (0.0-1.0); MONOCYTES % (AUTO) 5.3 %; NEUTROPHILS # (AUTO) 7.6 10^3/uL (1.5-6.6); NEUTROPHILS % (AUTO) 80.4 %; RED CELL DISTRIBUTION WIDTH 14.7 % (12.0-15.0); UNCORRECTED WHITE BLOOD COUNT 9.5 x10^3/uL; WHITE BLOOD COUNT 9.5 x10^3/uL (4.8-10.8)
[2016-09-18 04:59] LABS: ALBUMIN/GLOBULIN RATIO 0.8 (1.0-2.2); BILIRUBIN,TOTAL 0.8 mg/dL (0.2-1.0); BUN - BLOOD UREA NITROGEN 28 mg/dL (6-20); CALCIUM 8.3 mg/dL (8.5-10.3); CARBON DIOXIDE - CO2 34 mmol/L (21-32); CHLORIDE 100 mmol/L (101-111); CREATININE 0.6 mg/dL (0.6-1.2); GFR - MDRD 130 (>89); GLUCOSE 91 mg/dL (70-100); POTASSIUM 3.3 mmol/L (3.5-5.0); SODIUM 142 mmol/L (135-145)
[2016-09-18] MEDS: SODIUM CHLORIDE FLUSH 0.9% 10 ML SYRINGE IVP SCH ×3 (05:11→20:32)
[2016-09-18] MEDS: IPRATROPIUM/ALBUTEROL 3 ML NEB INH SCH ×4 (07:59→19:50)
[2016-09-18] MEDS: HEPARIN 5,000 UNIT/ML VIAL SUBQ SCH ×2 (09:34→20:34)
[2016-09-18] MEDS: guaiFENesin 600 MG TABLET PO SCH ×2 (09:35→20:31)
[2016-09-18] MEDS: CARBIDOPA/LEVODOPA 25 MG/100 MG TABLET PO SCH ×4 (09:35→20:30)
[2016-09-18] MEDS: predniSONE 5 MG TABLET PO SCH (09:35)
[2016-09-18] MEDS: GABAPENTIN 300 MG CAPSULE PO SCH ×2 (09:35→20:30)
[2016-09-18] MEDS: GABAPENTIN 100 MG CAPSULE PO SCH (11:42)
[2016-09-18] MEDS: carBAMazepine 200 MG TABLET PO SCH ×2 (11:42→16:13)
[2016-09-18] MEDS: MULTIVITAMIN TABLET PO SCH (11:42)
[2016-09-18] MEDS ORDERED: OLANZapine 10 MG VIAL IM ONE (12:16)
[2016-09-18] MEDS ORDERED: WATER FOR INJECTION,STERILE 10 ML ONE (12:46)
--- NOTE | 2016-09-18 18:44 | PROVIDER PROGRESS NOTE ---
Assessment/Plan - Problem List (1) Atrial fibrillation Qualifiers: Atrial fibrillation type: chronic Qualified Code(s): I48.2 - Chronic atrial fibrillation Assessment/Plan: Stable, rate controlled. (2) Pneumonia Qualifiers: Pneumonia type: aspiration pneumonia Laterality: left Lung location: lower lobe of lung Assessment/Plan: Discussed with : likely recurrent aspiration pneumonias and witnessed choking (which has noticed to increase over past 6 weeks. Continue antibiotics and pulmonary management. (3) COPD (chronic obstructive pulmonary disease) Qualifiers: COPD type: COPD with acute lower respiratory infection Qualified Code(s): J44.0 - Chronic obstructive pulmonary disease with acute lower respiratory infection Assessment/Plan: Slow improvement. No desaturations or evidence of respiratory distress desoite choking occaisionally. (4) Decreased urine output Assessment/Plan: Resolved (5) Aortic stenosis Qualifiers: Cardiac valve disease etiology: etiology unspecified Qualified Code(s): I35.0 - Nonrheumatic aortic (valve) stenosis Assessment/Plan: Stable (6) Acute delirium Assessment/Plan: Pt became agitated and swung at nurses, confused and required wrist restrains. Zyprexa given x 1, as per last admission (when Haldol had minimal affect). I discussed worsening mental status with who requests Hospice referral, will order. - Current Meds Current Meds: Current Medications Generic Name Dose Route Start Last Admin Trade Name Freq PRN Reason Stop Dose Admin Acetaminophen 650 mg 09/16/16 22:48 09/17/16 23:03 Tylenol PO 650 mg Q4HR PRN Administration Pain 1 to 4 Albuterol 2.5 mg 09/16/16 23:04 09/18/16 15:14 INH 2.5 mg Q4H PRN Administration Shortness of Air/Wheezing Albuterol/Ipratropium 3 ml 09/18/16 07:00 09/18/16 18:07 Duoneb INH Not Given RTQID FRANCISCO Carbamazepine 200 mg 09/17/16 12:00 09/18/16 16:13 Tegretol PO 200 mg 1200,1700 FRANCISCO Administration Carbidopa/Levodopa 2 tab 09/17/16 08:00 09/18/16 11:42 Sinemet 25 Mg/100 Mg PO 2 tab 0800,1200 FRANCISCO Administration Carbidopa/Levodopa 1 tab 09/17/16 17:00 09/18/16 16:13 Sinemet 25 Mg/100 Mg PO 1 tab 1700,2100 FRANCISCO Administration Gabapentin 100 mg 09/17/16 12:00 09/18/16 11:42 Neurontin PO 100 mg QDLUNCH FRANCISCO Administration Gabapentin 300 mg 09/17/16 09:00 09/18/16 09:35 Neurontin PO 300 mg BID FRANCISCO Administration Guaifenesin 600 mg 09/17/16 09:00 09/18/16 09:35 Mucinex PO 600 mg BID FRANCISCO Administration Heparin Sodium (Porcine) 5,000 unit 09/17/16 09:00 09/18/16 09:34 SUBQ 5,000 unit BID FRACNISCO Administration Potassium Chloride/Dextrose/Sod Cl 1,000 mls @ 125 mls/hr 09/17/16 01:14 11:43 D5.45ns W/20 Meq Kcl IV 125 mls/hr .Q8H FRANCISCO Administration Vancomycin HCl 1 gm/ Sodium 250 mls @ 167 mls/hr 09/17/16 03:00 09/18/16 02:49 Chloride IV 167 mls/hr Q24H FRANCISCO Administration Mineral Oil 1 applic 09/17/16 16:14 09/17/16 20:33 Cavilon TOP 1 applic PRN PRN Administration Skin Care Multivitamins 1 tab 09/17/16 12:00 09/18/16 11:42 Theragran PO 1 tab QDLUNCH FRANCISCO Administration Prednisone 5 mg 09/17/16 09:00 09/18/16 09:35 Deltasone PO 5 mg DAILY FRANCISCO Administration Sodium Chloride 10 ml 09/17/16 06:00 09/18/16 11:43 Normal Saline Flush 0.9% IVP 10 ml Q8HR FRANCISCO Administration - Lab Result Fish Bone Diagrams: 09/18/16 04:38 09/18/16 04:38 - Additional Planning My Orders: My Active Orders 09/18/16 Hospice Referral [CONS] Routine 09/18/16 07:00 Ipratropium/Albuterol [Duoneb] 3 ml INH RTQID 09/18/16 14:26 Restraints [RC] Q24H 09/18/16 14:28 Restraints Safety Checks [RC] Q5MIN Objective Vital Signs: Vital Signs - 24 hr 09/17/16 09/17/16 09/18/16 19:33 22:30 05:13 Temperature 36.4 C L 36.7 C Heart Rate 78 Heart Rate [ 76 92 Brachial] Respiratory 30 H 20 16 Rate Blood Pressure 139/65 H [Left Brachial artery] Blood Pressure 145/83 H [Right Brachial artery] O2 Saturation 97 97 09/18/16 09/18/16 09/18/16 08:01 08:35 11:06 Temperature 36.6 C Heart Rate 94 98 Heart Rate [ 87 Brachial] Respiratory 18 20 20 Rate Blood Pressure [Left Brachial artery] Blood Pressure 147/105 H [Right Brachial artery] O2 Saturation 82 L 09/18/16 09/18/16 09/18/16 15:17 16:00 16:28 Temperature 36.0 C L Heart Rate 84 Heart Rate [ 110 H 104 H Brachial] Respiratory 18 20 16 Rate Blood Pressure [Left Brachial artery] Blood Pressure 160/80 H 155/76 H [Right Brachial artery] O2 Saturation 100 Oxygen O2 Source Nasal cannula I&O (Last 24 Hrs): Intake and Output Totals x24h 09/16/16 09/17/16 09/18/16 23:59 23:59 23:59 Intake Total 100 1790 1500 Output Total 500 1 200 Balance -400 1789 1300 - Results Results: Laboratory Results WBC 9.5 x10^3/uL (4.8-10.8) 09/18/16 04:38 RBC 3.10 10^6/uL (4.70-6.10) L 09/18/16 04:38 Hgb 10.9 g/dL (14.0-18.0) L 09/18/16 04:38 Hct 32.2 % (42.0-52.0) L 09/18/16 04:38 MCV 103.9 fL (80.0-94.0) H 09/18/16 04:38 MCH 35.2 pg (27.0-31.0) H 09/18/16 04:38 MCHC 33.9 g/dL (32.0-36.0) 09/18/16 04:38 RDW 14.7 % (12.0-15.0) 09/18/16 04:38 Plt Count 196 10^3/uL (130-450) 09/18/16 04:38 MPV 8.2 fL (7.4-11.4) 09/18/16 04:38 Neut # 7.6 10^3/uL (1.5-6.6) H 09/18/16 04:38 Lymph # 1.0 10^3/uL (1.5-3.5) L 09/18/16 04:38 [place] # 0.5 10^3/uL (0.0-1.0) 09/18/16 04:38 Eos # 0.3 10^3/uL (0.0-0.7) 09/18/16 04:38 Baso # 0.1 10^3/uL (0.0-0.1) 09/18/16 04:38 Absolute Nucleated RBC 0.00 x10^3/uL 09/18/16 04:38 Nucleated RBCs 0.0 /100WBC 09/18/16 04:38 Manual Slide Review Indicated 09/16/16 21:15 WBC Morphology NORMAL APPEARANCE (NORMAL) 09/16/16 21:15 Platelet Estimate NORMAL (130-450,000) (NORMAL) 09/16/16 21:15 Platelet Morphology RARE GIANT PLATELETS (NORMAL) 09/16/16 21:15 RBC Morph Micro Appear 1+ ANISOCYTOSIS (NORMAL) 1+ MACROCYTOSIS (NORMAL) 21:15 RBC Morph Micro Appear 1+ ANISOCYTOSIS (NORMAL) 1+ MACROCYTOSIS (NORMAL) 21:15 PT 12.6 secs (9.9-12.6) 09/16/16 21:15 INR 1.1 (0.8-1.2) 09/16/16 21:15 APTT 22.9 secs (24.9-33.3) L 09/16/16 21:15 Sodium 142 mmol/L (135-145) 09/18/16 04:38 Potassium 3.3 mmol/L (3.5-5.0) L 09/18/16 04:38 Chloride 100 mmol/L (101-111) L 09/18/16 04:38 Carbon Dioxide 34 mmol/L (21-32) H 09/18/16 04:38 Anion Gap 8.0 (6-13) 09/18/16 04:38 BUN 28 mg/dL (6-20) H 09/18/16 04:38 Creatinine 0.6 mg/dL (0.6-1.2) 09/18/16 04:38 Estimated GFR (MDRD) 130 (>89) 09/18/16 04:38 Glucose 91 mg/dL (70-100) 09/18/16 04:38 Lactic Acid 3.0 mmol/L (0.5-2.2) H* 09/16/16 21:15 Calcium 8.3 mg/dL (8.5-10.3) L 09/18/16 04:38 Total Bilirubin 0.8 mg/dL (0.2-1.0) 09/18/16 04:38 AST 29 IU/L (10-42) 09/18/16 04:38 ALT < 10 IU/L (10-60) L 09/18/16 04:38 Alkaline Phosphatase 53 IU/L (42-121) 09/18/16 04:38 B-Natriuretic Peptide 208 pg/mL (5-100) H 09/16/16 21:15 Total Protein 6.0 g/dL (6.7-8.2) L 09/18/16 04:38 Albumin 2.6 g/dL (3.2-5.5) L 09/18/16 04:38 Globulin 3.4 g/dL (2.1-4.2) 09/18/16 04:38 Albumin/Globulin Ratio 0.8 (1.0-2.2) L 09/18/16 04:38 Folate 11.69 ng/mL (5.90 - >24.8) 09/17/16 11:24 Urine Color YELLOW 09/16/16 21:45 Urine Clarity CLEAR (CLEAR) 09/16/16 21:45 Urine pH 6.0 PH (5.0-7.5) 09/16/16 21:45 Ur Specific [place] 1.020 (1.002-1.030) 09/16/16 21:45 Urine Protein TRACE mg/dL (NEGATIVE) 09/16/16 21:45 Urine Glucose (UA) NEGATIVE mg/dL (NEGATIVE) 09/16/16 21:45 Urine Ketones NEGATIVE mg/dL (NEGATIVE) 09/16/16 21:45 Urine Occult Blood NEGATIVE (NEGATIVE) 09/16/16 21:45 Urine Nitrite NEGATIVE (NEGATIVE) 09/16/16 21:45 Urine Bilirubin NEGATIVE (NEGATIVE) 07/24/17 21:45 Urine Urobilinogen 0.2 (NORMAL) E.U./dL (NORMAL) 09/16/16 21:45 Ur Leukocyte Esterase NEGATIVE (NEGATIVE) 09/16/16 21:45 Ur Microscopic Review NOT INDICATED 09/16/16 21:45 Urine Culture Comments NOT INDICATED 09/16/16 21:45
[2016-09-18] MEDS: OLANZapine 10 MG VIAL IM PRN (21:57)
[2016-09-19] MEDS ORDERED: SODIUM CHLORIDE 0.9% 1,250 ML IV ONE (02:33)
[2016-09-19 02:56] LABS: BASOPHILS % (AUTO) 0.2 %; EOSINOPHILS # (AUTO) 0.3 10^3/uL (0.0-0.7); EOSINOPHILS % (AUTO) 2.4 %; HCT - HEMATOCRIT 33.7 % (42.0-52.0); HGB - HEMOGLOBIN 11.6 g/dL (14.0-18.0); LYMPHOCYTES # (AUTO) 0.7 10^3/uL (1.5-3.5); LYMPHOCYTES % (AUTO) 6.2 %; MEAN CORPUSCULAR HEMOGLOBIN 35.2 pg (27.0-31.0); MEAN CORPUSCULAR HGB CONC 34.6 g/dL (32.0-36.0); MEAN CORPUSCULAR VOLUME 101.8 fL (80.0-94.0); MEAN PLATELET VOLUME 8.3 fL (7.4-11.4); MONOCYTES # (AUTO) 0.6 10^3/uL (0.0-1.0); MONOCYTES % (AUTO) 5.1 %; NEUTROPHILS # (AUTO) 9.5 10^3/uL (1.5-6.6); NEUTROPHILS % (AUTO) 86.1 %; RED BLOOD COUNT 3.31 10^6/uL (4.70-6.10); RED CELL DISTRIBUTION WIDTH 14.1 % (12.0-15.0); UNCORRECTED WHITE BLOOD COUNT 11.1 x10^3/uL; WHITE BLOOD COUNT 11.1 x10^3/uL (4.8-10.8)
[2016-09-19 03:00] LABS: ALBUMIN/GLOBULIN RATIO 0.8 (1.0-2.2); BILIRUBIN,TOTAL 0.7 mg/dL (0.2-1.0); BUN - BLOOD UREA NITROGEN 17 mg/dL (6-20); CALCIUM 8.5 mg/dL (8.5-10.3); CARBON DIOXIDE - CO2 31 mmol/L (21-32); CHLORIDE 100 mmol/L (101-111); CREATININE 0.6 mg/dL (0.6-1.2); GFR - MDRD 130 (>89); GLUCOSE 116 mg/dL (70-100); POTASSIUM 4.1 mmol/L (3.5-5.0); SODIUM 139 mmol/L (135-145); TOTAL PROTEIN 6.4 g/dL (6.7-8.2)
[2016-09-19] MEDS: VANCOMYCIN INJ 1 GM in SODIUM CHLORIDE 0.9% 250 ML IV SCH (03:14)
[2016-09-19] MEDS ORDERED: WATER FOR INJECTION,STERILE 10 ML ONE ×2 (05:02→20:27)
[2016-09-19] MEDS: OLANZapine 10 MG VIAL IM PRN (05:14)
[2016-09-19] MEDS: SODIUM CHLORIDE FLUSH 0.9% 10 ML SYRINGE IVP SCH ×3 (05:21→22:00)
[2016-09-19] MEDS: D5.45NS W/20 MEQ KCL 1,000 ML IV SCH ×2 (06:01→14:48)
[2016-09-19] MEDS: IPRATROPIUM/ALBUTEROL 3 ML NEB INH SCH ×4 (09:15→20:00)
[2016-09-19] MEDS: CARBIDOPA/LEVODOPA 25 MG/100 MG TABLET PO SCH ×2 (11:23→11:27)
[2016-09-19] MEDS: GABAPENTIN 300 MG CAPSULE PO SCH (11:24)
[2016-09-19] MEDS: guaiFENesin 600 MG TABLET PO SCH (11:25)
[2016-09-19] MEDS: predniSONE 5 MG TABLET PO SCH (11:26)
[2016-09-19] MEDS: carBAMazepine 200 MG TABLET PO SCH (11:26)
[2016-09-19] MEDS: GABAPENTIN 100 MG CAPSULE PO SCH (11:27)
[2016-09-19] MEDS: MULTIVITAMIN TABLET PO SCH (11:28)
[2016-09-19] MEDS: HEPARIN 5,000 UNIT/ML VIAL SUBQ SCH ×2 (11:35→21:30)
[2016-09-19] MEDS ORDERED: VANCOMYCIN INJ 1 GM in SODIUM CHLORIDE 0.9% 250 ML IV SCH (14:00)
[2016-09-19] MEDS ORDERED: MORPHINE 10 MG/ML VIAL SUBQ PRN (16:33)
[2016-09-19] MEDS ORDERED: ACETAMINOPHEN 650 MG SUPP PR PRN (16:33)
[2016-09-19] MEDS ORDERED: SCOPOLAMINE PATCH TOP SCH ×2 (17:00→23:45)
--- NOTE | 2016-09-19 19:49 | PROVIDER PROGRESS NOTE ---
Assessment/Plan - Problem List (1) Atrial fibrillation Qualifiers: Atrial fibrillation type: chronic Qualified Code(s): I48.2 - Chronic atrial fibrillation (2) Pneumonia Qualifiers: Pneumonia type: aspiration pneumonia Laterality: left Lung location: lower lobe of lung Assessment/Plan: Pt not in resp distress. On antibiotics. will continue tx for COPD as well. (3) COPD (chronic obstructive pulmonary disease) Qualifiers: COPD type: COPD with acute lower respiratory infection Qualified Code(s): J44.0 - Chronic obstructive pulmonary disease with acute lower respiratory infection (5) Aortic stenosis Qualifiers: Cardiac valve disease etiology: etiology unspecified Qualified Code(s): I35.0 - Nonrheumatic aortic (valve) stenosis (6) Acute delirium Assessment/Plan: Pt improved after Zyprexa treatment. I discussed status with Pt's and one daughter, explaining that Hospice has been requested and po meds will be changed to parenteral due to choking and inability to swallo safwely. I reached out to [facility], who will evaluate tomorrow. - Current Meds Current Meds: Current Medications Generic Name Dose Route Start Last Admin Trade Name Freq PRN Reason Stop Dose Admin Albuterol 2.5 mg 09/16/16 23:04 09/18/16 15:14 INH 2.5 mg Q4H PRN Administration Shortness of Air/Wheezing Albuterol/Ipratropium 3 ml 09/18/16 07:00 09/19/16 14:30 Duoneb INH 3 ml RTQID FRANCISCO Administration Heparin Sodium (Porcine) 5,000 unit 09/17/16 09:00 09/19/16 11:35 SUBQ 5,000 unit BID FRANCISCO Administration Potassium Chloride/Dextrose/Sod Cl 1,000 mls @ 125 mls/hr 09/17/16 01:14 14:48 D5.45ns W/20 Meq Kcl IV 125 mls/hr .Q8H FRANCISCO Administration Vancomycin HCl 1 gm/ Sodium 250 mls @ 167 mls/hr 09/19/16 14:00 09/19/16 14:47 Chloride IV 167 mls/hr Q12H FRANCISCO Administration Mineral Oil 1 applic 09/17/16 16:14 09/17/16 20:33 Cavilon TOP 1 applic PRN PRN Administration Skin Care Sodium Chloride 10 ml 09/17/16 06:00 09/19/16 14:14 Normal Saline Flush 0.9% IVP Not Given Q8HR FRANCISCO - Lab Result Fish Bone Diagrams: 09/19/16 02:40 09/19/16 02:50 - Additional Planning My Orders: My Active Orders 09/19/16 13:26 Restraints [RC] Q4H 09/19/16 16:33 Acetaminophen [Tylenol] 650 mg UT Q4H PRN Atropine 1% Ophth Drops [Isopto Atropine 1% Ophth Drops] 1 - 4 drops SL Q2H PRN Glycopyrrolate [Robinul] 0.2 mg SUBQ Q4H PRN Morphine Inj [Morphine] 5 mg SUBQ ONCE PRN Morphine Oral Soln [Roxanol] 10 mg SL Q2HR PRN 09/19/16 20:00 OLANZapine IM [ZyPREXA IM] 5 mg IM Q8H 09/19/16 Lunch Dysphagia Puree Diet [DIET] 09/20/16 13:30 VANCOMYCIN TROUGH [CHEM] Timed Subjective - Subjective Nursing Reports: Confused (Pt calls out, agitated, oriented x 0.) Objective Vital Signs: Vital Signs - 24 hr 09/18/16 09/18/16 09/19/16 19:50 21:28 01:00 Temperature 36.6 C Heart Rate 96 Heart Rate [ 91 115 H Brachial] Respiratory 18 20 22 Rate Blood Pressure 177/94 H [Left Brachial artery] Blood Pressure 146/86 H [Right Brachial artery] O2 Saturation 100 95 09/19/16 09/19/16 09/19/16 03:09 06:09 09:15 Temperature Heart Rate 113 H Heart Rate [ Brachial] Respiratory 20 Rate Blood Pressure [Left Brachial artery] Blood Pressure 165/95 H 155/86 H [Right Brachial artery] O2 Saturation 09/19/16 09/19/16 09/19/16 14:00 14:30 16:38 Temperature 36.7 C 36.7 C Heart Rate 101 H Heart Rate [ 71 105 H Brachial] Respiratory 20 18 20 Rate Blood Pressure [Left Brachial artery] Blood Pressure 164/121 H 147/98 H [Right Brachial artery] O2 Saturation 94 96 Oxygen O2 Source Room air I&O (Last 24 Hrs): Intake and Output Totals x24h 09/17/16 09/18/16 09/19/16 23:59 23:59 23:59 Intake Total 1790 3786 2220 Output Total 1 200 2 Balance 1789 2515 6913 General: Other (Confused) HEENT: Mucous membr. moist/pink Neuro: Disoriented Abdomen: Soft - Results Results: Laboratory Results WBC 11.1 x10^3/uL (4.8-10.8) H 09/19/16 02:40 RBC 3.31 10^6/uL (4.70-6.10) L 09/19/16 02:40 Hgb 11.6 g/dL (14.0-18.0) L 09/19/16 02:40 Hct 33.7 % (42.0-52.0) L 09/19/16 02:40 MCV 101.8 fL (80.0-94.0) H 09/19/16 02:40 MCH 35.2 pg (27.0-31.0) H 09/19/16 02:40 MCHC 34.6 g/dL (32.0-36.0) 09/19/16 02:40 RDW 14.1 % (12.0-15.0) 09/19/16 02:40 Plt Count 222 10^3/uL (130-450) 09/19/16 02:40 MPV 8.3 fL (7.4-11.4) 09/19/16 02:40 Neut # 9.5 10^3/uL (1.5-6.6) H 09/19/16 02:40 Lymph # 0.7 10^3/uL (1.5-3.5) L 09/19/16 02:40 [place] # 0.6 10^3/uL (0.0-1.0) 09/19/16 02:40 Eos # 0.3 10^3/uL (0.0-0.7) 09/19/16 02:40 Baso # 0.0 10^3/uL (0.0-0.1) 09/19/16 02:40 Absolute Nucleated RBC 0.00 x10^3/uL 09/19/16 02:40 Nucleated RBCs 0.0 /100WBC 09/19/16 02:40 Manual Slide Review Indicated 09/16/16 21:15 WBC Morphology NORMAL APPEARANCE (NORMAL) 09/16/16 21:15 Platelet Estimate NORMAL (130-450,000) (NORMAL) 09/16/16 21:15 Platelet Morphology RARE GIANT PLATELETS (NORMAL) 09/16/16 21:15 RBC Morph Micro Appear 1+ ANISOCYTOSIS (NORMAL) 1+ MACROCYTOSIS (NORMAL) 21:15 RBC Morph Micro Appear 1+ ANISOCYTOSIS (NORMAL) 1+ MACROCYTOSIS (NORMAL) 21:15 PT 12.6 secs (9.9-12.6) 09/16/16 21:15 INR 1.1 (0.8-1.2) 09/16/16 21:15 APTT 22.9 secs (24.9-33.3) L 09/16/16 21:15 Sodium 139 mmol/L (135-145) 09/19/16 02:50 Potassium 4.1 mmol/L (3.5-5.0) 09/19/16 02:50 Chloride 100 mmol/L (101-111) L 09/19/16 02:50 Carbon Dioxide 31 mmol/L (21-32) 09/19/16 02:50 Anion Gap 8.0 (6-13) 09/19/16 02:50 BUN 17 mg/dL (6-20) 09/19/16 02:50 Creatinine 0.6 mg/dL (0.6-1.2) 09/19/16 02:50 Estimated GFR (MDRD) 130 (>89) 09/19/16 02:50 Glucose 116 mg/dL (70-100) H 09/19/16 02:50 Lactic Acid 3.0 mmol/L (0.5-2.2) H* 09/16/16 21:15 Calcium 8.5 mg/dL (8.5-10.3) 09/19/16 02:50 Total Bilirubin 0.7 mg/dL (0.2-1.0) 09/19/16 02:50 AST 31 IU/L (10-42) 09/19/16 02:50 ALT < 10 IU/L (10-60) L 09/19/16 02:50 Alkaline Phosphatase 60 IU/L (42-121) 09/19/16 02:50 B-Natriuretic Peptide 208 pg/mL (5-100) H 09/16/16 21:15 Total Protein 6.4 g/dL (6.7-8.2) L 09/19/16 02:50 Albumin 2.8 g/dL (3.2-5.5) L 09/19/16 02:50 Globulin 3.6 g/dL (2.1-4.2) 09/19/16 02:50 Albumin/Globulin Ratio 0.8 (1.0-2.2) L 09/19/16 02:50 Folate 11.69 ng/mL (5.90 - >24.8) 09/17/16 11:24 Urine Color YELLOW 09/16/16 21:45 Urine Clarity CLEAR (CLEAR) 09/16/16 21:45 Urine pH 6.0 PH (5.0-7.5) 09/16/16 21:45 Ur Specific [place] 1.020 (1.002-1.030) 09/16/16 21:45 Urine Protein TRACE mg/dL (NEGATIVE) 09/16/16 21:45 Urine Glucose (UA) NEGATIVE mg/dL (NEGATIVE) 09/16/16 21:45 Urine Ketones NEGATIVE mg/dL (NEGATIVE) 09/16/16 21:45 Urine Occult Blood NEGATIVE (NEGATIVE) 09/16/16 21:45 Urine Nitrite NEGATIVE (NEGATIVE) 09/16/16 21:45 Urine Bilirubin NEGATIVE (NEGATIVE) 09/16/16 21:45 Urine Urobilinogen 0.2 (NORMAL) E.U./dL (NORMAL) 09/16/16 21:45 Ur Leukocyte Esterase NEGATIVE (NEGATIVE) 09/16/16 21:45 Ur Microscopic Review NOT INDICATED 09/16/16 21:45 Urine Culture Comments NOT INDICATED 09/16/16 21:45 Last Dose Date K 09/19/16 02:50 Last Dose Time K 09/19/16 02:50 Vancomycin Trough 7.1 ug/mL (5.0-15.0) 09/19/16 02:50
[2016-09-19] MEDS: OLANZapine 10 MG VIAL IM SCH (20:37)
[2016-09-19] MEDS: ATROPINE 1% OPHTH DROPS 2 ML SL PRN (22:04)
[2016-09-20] MEDS ORDERED: WATER FOR INJECTION,STERILE 10 ML ONE ×3 (03:37→15:01)
[2016-09-20] MEDS: OLANZapine 10 MG VIAL IM SCH ×2 (03:46→11:12)
[2016-09-20 04:50] LABS: BASOPHILS # (AUTO) 0.1 10^3/uL (0.0-0.1); BASOPHILS % (AUTO) 0.6 %; EOSINOPHILS # (AUTO) 0.1 10^3/uL (0.0-0.7); EOSINOPHILS % (AUTO) 1.3 %; HCT - HEMATOCRIT 35.5 % (42.0-52.0); HGB - HEMOGLOBIN 12.3 g/dL (14.0-18.0); LYMPHOCYTES # (AUTO) 0.9 10^3/uL (1.5-3.5); LYMPHOCYTES % (AUTO) 9.6 %; MEAN CORPUSCULAR HGB CONC 34.5 g/dL (32.0-36.0); MEAN CORPUSCULAR VOLUME 101.4 fL (80.0-94.0); MEAN PLATELET VOLUME 8.2 fL (7.4-11.4); MONOCYTES # (AUTO) 0.7 10^3/uL (0.0-1.0); MONOCYTES % (AUTO) 7.7 %; NEUTROPHILS # (AUTO) 7.6 10^3/uL (1.5-6.6); NEUTROPHILS % (AUTO) 80.8 %; NUCLEATED RED BLOOD CELLS AUTO 0.1 /100WBC; RED CELL DISTRIBUTION WIDTH 13.7 % (12.0-15.0); UNCORRECTED WHITE BLOOD COUNT 9.5 x10^3/uL; WHITE BLOOD COUNT 9.5 x10^3/uL (4.8-10.8)
[2016-09-20 05:03] LABS: ALBUMIN/GLOBULIN RATIO 0.8 (1.0-2.2); BILIRUBIN,TOTAL 1.3 mg/dL (0.2-1.0); CALCIUM 8.5 mg/dL (8.5-10.3); CREATININE 0.7 mg/dL (0.6-1.2); POTASSIUM 3.8 mmol/L (3.5-5.0); TOTAL PROTEIN 6.1 g/dL (6.7-8.2)
[2016-09-20] MEDS: GLYCOPYRROLATE 1 MG/5 ML VIAL SUBQ PRN ×3 (05:44→23:34)
[2016-09-20] MEDS: SODIUM CHLORIDE FLUSH 0.9% 10 ML SYRINGE IVP SCH ×3 (06:00→19:39)
[2016-09-20] MEDS: IPRATROPIUM/ALBUTEROL 3 ML NEB INH SCH ×4 (07:53→21:11)
[2016-09-20 13:40] VITALS: BP 144/94
[2016-09-20] MEDS ORDERED: OLANZapine 10 MG VIAL IM SCH (14:00)
[2016-09-20] MEDS ORDERED: OLANZapine 10 MG VIAL IM ONE (14:49)
[2016-09-20] MEDS: MORPHINE SOL 10 MG/0.5 ML SYRINGE SL PRN ×3 (18:38→23:30)
--- NOTE | 2016-09-20 18:39 | PROVIDER PROGRESS NOTE ---
Assessment/Plan - Problem List (1) Atrial fibrillation Qualifiers: Atrial fibrillation type: chronic Qualified Code(s): I48.2 - Chronic atrial fibrillation (2) Pneumonia Qualifiers: Pneumonia type: aspiration pneumonia Laterality: left Lung location: lower lobe of lung (3) COPD (chronic obstructive pulmonary disease) Qualifiers: COPD type: COPD with acute lower respiratory infection Qualified Code(s): J44.0 - Chronic obstructive pulmonary disease with acute lower respiratory infection (5) Aortic stenosis Qualifiers: Cardiac valve disease etiology: etiology unspecified Qualified Code(s): I35.0 - Nonrheumatic aortic (valve) stenosis (7) Failure to thrive in adult Assessment/Plan: I have spoken with family and updated and daughter on patient's status. They wish that Pt have iv hydration and iv meds and continue treatment for agitation. They want Hospice to answer questions, and I put the Hospice nurse in contact with them today. Will continue Zyprexa, Scopalamine patches. - Current Meds Current Meds: Current Medications Generic Name Dose Route Start Last Admin Trade Name Freq PRN Reason Stop Dose Admin Albuterol 2.5 mg 09/16/16 23:04 09/18/16 15:14 INH 2.5 mg Q4H PRN Administration Shortness of Air/Wheezing Albuterol/Ipratropium 3 ml 09/18/16 07:00 09/20/16 17:20 Duoneb INH 3 ml RTQID FRANCISCO Administration Atropine Sulfate 1 - 4 drops 09/19/16 16:33 09/19/16 22:04 Isopto Atropine 1% Ophth Drops SL 2 drops Q2H PRN Administration Excessive secretions Glycopyrrolate 0.2 mg 09/19/16 16:33 09/20/16 15:53 Robinul SUBQ 0.2 mg Q4H PRN Administration Excessive secretions Mineral Oil 1 applic 09/17/16 16:14 09/17/16 20:33 Cavilon TOP 1 applic PRN PRN Administration Skin Care Olanzapine 7.5 mg 09/20/16 14:00 09/20/16 15:10 Zyprexa Im IM Not Given Q8HR FRANCISCO Scopolamine HBr 1 patch 09/19/16 23:45 09/20/16 00:36 Transderm-Scop TOP 1 patch Q3D FRANCISCO Administration Sodium Chloride 10 ml 09/17/16 06:00 09/20/16 14:24 Normal Saline Flush 0.9% IVP Not Given Q8HR FRANCISCO - Lab Result Fish Bone Diagrams: 09/20/16 04:35 09/20/16 04:35 - Additional Planning My Orders: My Active Orders 09/20/16 14:00 OLANZapine IM [ZyPREXA IM] 7.5 mg IM Q8HR Objective Vital Signs: Vital Signs - 24 hr 09/19/16 09/20/16 09/20/16 20:00 00:55 07:57 Temperature 36.7 C Heart Rate 110 H 98 Heart Rate [ 115 H Brachial] Respiratory 20 20 20 Rate Blood Pressure 154/97 H [Right Brachial artery] O2 Saturation 95 09/20/16 09/20/16 09/20/16 13:38 16:43 17:20 Temperature 36.7 C 37.5 C Heart Rate 129 H Heart Rate [ 65 Brachial] Respiratory 16 18 20 Rate Blood Pressure 144/94 H [Right Brachial artery] O2 Saturation 100 Oxygen O2 Source Nasal cannula I&O (Last 24 Hrs): Intake and Output Totals x24h 09/18/16 09/19/16 09/20/16 23:59 23:59 23:59 Intake Total 3786 3115 Output Total 200 2 4 Balance 3586 3113 -4 - Results Results: Laboratory Results WBC 9.5 x10^3/uL (4.8-10.8) 09/20/16 04:35 RBC 3.50 10^6/uL (4.70-6.10) L 09/20/16 04:35 Hgb 12.3 g/dL (14.0-18.0) L 09/20/16 04:35 Hct 35.5 % (42.0-52.0) L 09/20/16 04:35 MCV 101.4 fL (80.0-94.0) H 09/20/16 04:35 MCH 35.0 pg (27.0-31.0) H 09/20/16 04:35 MCHC 34.5 g/dL (32.0-36.0) 09/20/16 04:35 RDW 13.7 % (12.0-15.0) 09/20/16 04:35 Plt Count 245 10^3/uL (130-450) 09/20/16 04:35 MPV 8.2 fL (7.4-11.4) 09/20/16 04:35 Neut # 7.6 10^3/uL (1.5-6.6) H 09/20/16 04:35 Lymph # 0.9 10^3/uL (1.5-3.5) L 09/20/16 04:35 [place] # 0.7 10^3/uL (0.0-1.0) 09/20/16 04:35 Eos # 0.1 10^3/uL (0.0-0.7) 09/20/16 04:35 Baso # 0.1 10^3/uL (0.0-0.1) 09/20/16 04:35 Absolute Nucleated RBC 0.01 x10^3/uL 09/20/16 04:35 Nucleated RBCs 0.1 /100WBC 09/20/16 04:35 Manual Slide Review Indicated 09/16/16 21:15 WBC Morphology NORMAL APPEARANCE (NORMAL) 09/16/16 21:15 Platelet Estimate NORMAL (130-450,000) (NORMAL) 09/16/16 21:15 Platelet Morphology RARE GIANT PLATELETS (NORMAL) 09/16/16 21:15 RBC Morph Micro Appear 1+ ANISOCYTOSIS (NORMAL) 1+ MACROCYTOSIS (NORMAL) 21:15 RBC Morph Micro Appear 1+ ANISOCYTOSIS (NORMAL) 1+ MACROCYTOSIS (NORMAL) 21:15 PT 12.6 secs (9.9-12.6) 09/16/16 21:15 INR 1.1 (0.8-1.2) 09/16/16 21:15 APTT 22.9 secs (24.9-33.3) L 09/16/16 21:15 Sodium 138 mmol/L (135-145) 09/20/16 04:35 Potassium 3.8 mmol/L (3.5-5.0) 09/20/16 04:35 Chloride 101 mmol/L (101-111) 09/20/16 04:35 Carbon Dioxide 26 mmol/L (21-32) 09/20/16 04:35 Anion Gap 11.0 (6-13) 09/20/16 04:35 BUN 14 mg/dL (6-20) 09/20/16 04:35 Creatinine 0.7 mg/dL (0.6-1.2) 09/20/16 04:35 Estimated GFR (MDRD) 109 (>89) 09/20/16 04:35 Glucose 105 mg/dL (70-100) H 09/20/16 04:35 Lactic Acid 3.0 mmol/L (0.5-2.2) H* 09/16/16 21:15 Calcium 8.5 mg/dL (8.5-10.3) 09/20/16 04:35 Total Bilirubin 1.3 mg/dL (0.2-1.0) H 09/20/16 04:35 AST 37 IU/L (10-42) 09/20/16 04:35 ALT 19 IU/L (10-60) 09/20/16 04:35 Alkaline Phosphatase 59 IU/L (42-121) 09/20/16 04:35 B-Natriuretic Peptide 208 pg/mL (5-100) H 09/16/16 21:15 Total Protein 6.1 g/dL (6.7-8.2) L 09/20/16 04:35 Albumin 2.7 g/dL (3.2-5.5) L 09/20/16 04:35 Globulin 3.4 g/dL (2.1-4.2) 09/20/16 04:35 Albumin/Globulin Ratio 0.8 (1.0-2.2) L 09/20/16 04:35 Folate 11.69 ng/mL (5.90 - >24.8) 09/17/16 11:24 Urine Color YELLOW 09/16/16 21:45 Urine Clarity CLEAR (CLEAR) 09/16/16 21:45 Urine pH 6.0 PH (5.0-7.5) 09/16/16 21:45 Ur Specific [place] 1.020 (1.002-1.030) 09/16/16 21:45 Urine Protein TRACE mg/dL (NEGATIVE) 09/16/16 21:45 Urine Glucose (UA) NEGATIVE mg/dL (NEGATIVE) 09/16/16 21:45 Urine Ketones NEGATIVE mg/dL (NEGATIVE) 09/16/16 21:45 Urine Occult Blood NEGATIVE (NEGATIVE) 09/16/16 21:45 Urine Nitrite NEGATIVE (NEGATIVE) 09/16/16 21:45 Urine Bilirubin NEGATIVE (NEGATIVE) 09/16/16 21:45 Urine Urobilinogen 0.2 (NORMAL) E.U./dL (NORMAL) 09/16/16 21:45 Ur Leukocyte Esterase NEGATIVE (NEGATIVE) 09/16/16 21:45 Ur Microscopic Review NOT INDICATED 09/16/16 21:45 Urine Culture Comments NOT INDICATED 09/16/16 21:45 Last Dose Date K 09/19/16 02:50 Last Dose Time K 09/19/16 02:50 Vancomycin Trough 7.1 ug/mL (5.0-15.0) 09/19/16 02:50
[2016-09-20] MEDS: ATROPINE 1% OPHTH DROPS 2 ML SL PRN (21:25)
--- NOTE | 2016-09-21 03:57 | Discharge Plan ---
Discharge Plan Disposition: 20 Condition: Critical No Smoking: If you smoke, Please STOP! Call for help.
--- NOTE | 2016-09-21 04:00 | DISCHARGE SUMMARY ---
Discharge Summary Admit Date: 09/16/16 Discharge Date: 09/21/16 (Patient at 00:15 on 09/21/16) Discharging Provider: Jarek Mccormick MD Primary Care Provider: Don Villafana MD Code Status: Do Not Attempt Resuscitation Discharge Disposition: 20 - DIAGNOSES Admission Diagnoses: 1. Acute on chronic respiratory failure 2. Pneumonia 3. Failure to thrive 4. Parkinsons Disease 5. Hypothyroidism 6. BPH 7. Hypertension 8. DVT Prophylaxis 8. Dysphagia 9. COPD Discharge Diagnoses with Status of Each Condition: 1. Cardiopulmonary Arrest 2. Acute on chronic respiratory failure 3. Pneumonia 4. COPD 5. Failure to thrive 6. Atrial fibrillation 7. Parkinsons Disease 8. Dysphagia 9. Hypertension 10. Hypothyroidism - HPI History of Present Illness: This patient was admitted with pneumonia last month, after a downward spiral at home. He was felt to have failure to thrive. He was discharged to [facility] for rehabilitation. Apparently, over the last couple of days, he has had falling O2 saturations. He was treated with for possible pneumonia. He was sent back to the ER, for depressed mental status, and oxygen saturation not responding to O2 by nasal cannula. ER evaluation showed O2 saturations in the low 80s, and very rhonchorous breath sounds. He was given Lasix pending labs and x-ray, but these tests were more consistent with pneumonia and dehydration. He was found to be fairly lethargic, keeping his eyes closed. He denied any pain. He did follow some commands. - HOSPITAL COURSE Hospital Course: The patient presented with acute on chronic respiratory failure secondary to pneumonia and COPD. Patient had end stage parkinsons and was having failure to thrive. He had dysphagia had been losing weight and having recurrent pneumonias likely from aspiration. The patients condition seemed to be slowly be dwindling away and the family felt that he would not want to continue to suffer this way. The family decided to make him comfort care and wanted him to go back to [facility] with hospice care. The patient could not go to [facility] with hospice till 09/24/16. Plan was for patient to be comfort care at the hospital till then. The patient rapidly declined on the evening of 09/20/16. He became increasingly hypoxic and unresponsive. The patient passed at 00:15 on 09/21/16 of a cardiopulmonary arrest. His family was at home. I spoke with his daughter and broke to her the unfortunate news of his passing. I did give her my condolences. She will notify her mother. The patients remains were released. - ALLERGIES Allergies/Adverse Reactions: Allergies Allergy/AdvReac Type Severity Reaction Status Date / Time venom-honey bee Allergy Severe Respiratory Verified 09/16/16 20:36 [bee venom (honey bee)] - MEDICATIONS Home Medications: Ambulatory Orders Medication Instructions Recorded Confirmed Carbamazepine [Epitol] 200 mg PO 1200,1700 02/05/13 09/16/16 Dutasteride/Tamsulosin HCl [Debbi 0.4 - 0.5 mg PO 1700 02/05/13 09/16/16 0.5-0.4 mg Capsule] Levothyroxine Sodium [Synthroid] 50 mcg PO QDAC 02/05/13 09/16/16 Aspirin 81 mg PO DAILY 12/28/13 09/16/16 Carbidopa/Levodopa 25/100 [Sinemet 1 tab PO 1700,2100 06/18/15 09/16/16 25 mg/100 mg] Carbidopa/Levodopa 2 tab PO 0800,1200 09/23/15 09/16/16 [Carbidopa-Levodopa 25-100 Tab] Cholecalciferol (Vitamin D3) 2,000 unit PO DAILY 09/23/15 09/16/16 [Vitamin D3] Vortioxetine Hydrobromide 10 mg PO DAILY 09/23/15 09/16/16 [Trintellix] Gabapentin [Neurontin] 100 mg PO QDLUNCH 11/23/15 09/16/16 Multivitamin [Theragran] 1 each PO QDLUNCH 11/23/15 09/16/16 hydroCHLOROthiazide [Hydrodiuril] 25 mg PO DAILY 11/23/15 09/16/16 Albuterol Sulfate [Proair Hfa 2 puffs INH Q6H PRN 04/04/16 09/16/16 Inhaler] predniSONE [Deltasone] 5 mg PO DAILY tablet 04/04/16 09/17/16 Gabapentin 300 mg PO BID 08/09/16 09/16/16 Azithromycin [Azithromycin] 250 mg ORAL DAILY 09/16/16 09/16/16 - PHYSICAL EXAM AT DISCHARGE Physical Exam Other/Comments: No pulse, no breath sounds, no heart sounds, no chest rise, absent corneal reflex. Patient has . - LABS Result Diagrams: 09/20/16 04:35 09/20/16 04:35 Other Lab Results: Laboratory Results WBC 9.5 x10^3/uL (4.8-10.8) 09/20/16 04:35 RBC 3.50 10^6/uL (4.70-6.10) L 09/20/16 04:35 Hgb 12.3 g/dL (14.0-18.0) L 09/20/16 04:35 Hct 35.5 % (42.0-52.0) L 09/20/16 04:35 MCV 101.4 fL (80.0-94.0) H 09/20/16 04:35 MCH 35.0 pg (27.0-31.0) H 09/20/16 04:35 MCHC 34.5 g/dL (32.0-36.0) 09/20/16 04:35 RDW 13.7 % (12.0-15.0) 09/20/16 04:35 Plt Count 245 10^3/uL (130-450) 09/20/16 04:35 MPV 8.2 fL (7.4-11.4) 09/20/16 04:35 Neut # 7.6 10^3/uL (1.5-6.6) H 09/20/16 04:35 Lymph # 0.9 10^3/uL (1.5-3.5) L 09/20/16 04:35 [place] # 0.7 10^3/uL (0.0-1.0) 09/20/16 04:35 Eos # 0.1 10^3/uL (0.0-0.7) 09/20/16 04:35 Baso # 0.1 10^3/uL (0.0-0.1) 09/20/16 04:35 Absolute Nucleated RBC 0.01 x10^3/uL 09/20/16 04:35 Nucleated RBCs 0.1 /100WBC 09/20/16 04:35 Manual Slide Review Indicated 09/16/16 21:15 WBC Morphology NORMAL APPEARANCE (NORMAL) 09/16/16 21:15 Platelet Estimate NORMAL (130-450,000) (NORMAL) 09/16/16 21:15 Platelet Morphology RARE GIANT PLATELETS (NORMAL) 09/16/16 21:15 RBC Morph Micro Appear 1+ ANISOCYTOSIS (NORMAL) 1+ MACROCYTOSIS (NORMAL) 21:15 RBC Morph Micro Appear 1+ ANISOCYTOSIS (NORMAL) 1+ MACROCYTOSIS (NORMAL) 21:15 PT 12.6 secs (9.9-12.6) 09/16/16 21:15 INR 1.1 (0.8-1.2) 09/16/16 21:15 APTT 22.9 secs (24.9-33.3) L 09/16/16 21:15 Sodium 138 mmol/L (135-145) 09/20/16 04:35 Potassium 3.8 mmol/L (3.5-5.0) 09/20/16 04:35 Chloride 101 mmol/L (101-111) 09/20/16 04:35 Carbon Dioxide 26 mmol/L (21-32) 09/20/16 04:35 Anion Gap 11.0 (6-13) 09/20/16 04:35 BUN 14 mg/dL (6-20) 09/20/16 04:35 Creatinine 0.7 mg/dL (0.6-1.2) 09/20/16 04:35 Estimated GFR (MDRD) 109 (>89) 09/20/16 04:35 Glucose 105 mg/dL (70-100) H 09/20/16 04:35 Lactic Acid 3.0 mmol/L (0.5-2.2) H* 09/16/16 21:15 Calcium 8.5 mg/dL (8.5-10.3) 09/20/16 04:35 Total Bilirubin 1.3 mg/dL (0.2-1.0) H 09/20/16 04:35 AST 37 IU/L (10-42) 09/20/16 04:35 ALT 19 IU/L (10-60) 09/20/16 04:35 Alkaline Phosphatase 59 IU/L (42-121) 09/20/16 04:35 B-Natriuretic Peptide 208 pg/mL (5-100) H 09/16/16 21:15 Total Protein 6.1 g/dL (6.7-8.2) L 09/20/16 04:35 Albumin 2.7 g/dL (3.2-5.5) L 09/20/16 04:35 Globulin 3.4 g/dL (2.1-4.2) 09/20/16 04:35 Albumin/Globulin Ratio 0.8 (1.0-2.2) L 09/20/16 04:35 Folate 11.69 ng/mL (5.90 - >24.8) 09/17/16 11:24 Urine Color YELLOW 09/16/16 21:45 Urine Clarity CLEAR (CLEAR) 09/16/16 21:45 Urine pH 6.0 PH (5.0-7.5) 09/16/16 21:45 Ur Specific [place] 1.020 (1.002-1.030) 09/16/16 21:45 Urine Protein TRACE mg/dL (NEGATIVE) 09/16/16 21:45 Urine Glucose (UA) NEGATIVE mg/dL (NEGATIVE) 09/16/16 21:45 Urine Ketones NEGATIVE mg/dL (NEGATIVE) 09/16/16 21:45 Urine Occult Blood NEGATIVE (NEGATIVE) 09/16/16 21:45 Urine Nitrite NEGATIVE (NEGATIVE) 09/16/16 21:45 Urine Bilirubin NEGATIVE (NEGATIVE) 09/16/16 21:45 Urine Urobilinogen 0.2 (NORMAL) E.U./dL (NORMAL) 09/16/16 21:45 Ur Leukocyte Esterase NEGATIVE (NEGATIVE) 09/16/16 21:45 Ur Microscopic Review NOT INDICATED 09/16/16 21:45 Urine Culture Comments NOT INDICATED 09/16/16 21:45 Last Dose Date [facility] 09/19/16 02:50 Last Dose Time [facility] 09/19/16 02:50 Vancomycin Trough 7.1 ug/mL (5.0-15.0) 09/19/16 02:50 - DIAGNOSTIC IMAGING Diagnostic Imaging Results: Final report reviewed - FOLLOW UP Follow Up: Patient has . Family informed. Patients remains released to home.
== END 2016-09-21 00:15 | disposition expired | DRG 189 ==
LOC: EDUNIT# → ED 20:31 → MS3 22:49 → MS2 09-20 20:33 → ICU 09-21 03:46 → MS3 09-21 03:50 → UNDODISIN 09-21 13:18
PROVIDERS: ADMIT Internal Medicine; ATTEND Internal Medicine
DX: J44.0 Chronic obstructive pulmonary disease with (acute) lower respiratory infection (principal); J18.1 Lobar pneumonia, unspecified organism; I48.91 Unspecified atrial fibrillation; J96.21 Acute and chronic respiratory failure with hypoxia; J69.0 Pneumonitis due to inhalation of food and vomit; J44.9 Chronic obstructive pulmonary disease, unspecified; G20 Parkinson's disease; E03.9 Hypothyroidism, unspecified; N40.0 Benign prostatic hyperplasia without lower urinary tract symptoms; I10 Essential (primary) hypertension; R13.10 Dysphagia, unspecified; I46.9 Cardiac arrest, cause unspecified; R62.7 Adult failure to thrive; I48.2 Chronic atrial fibrillation; R41.0 Disorientation, unspecified; E86.0 Dehydration; I73.9 Peripheral vascular disease, unspecified; I35.0 Nonrheumatic aortic (valve) stenosis; J98.4 Other disorders of lung; Z66 Do not resuscitate; Z78.1 Physical restraint status; Z85.118 Personal history of other malignant neoplasm of bronchus and lung; Z90.2 Acquired absence of lung [part of]; Z87.19 Personal history of other diseases of the digestive system; Z95.828 Presence of other vascular implants and grafts; Z79.52 Long term (current) use of systemic steroids; Z79.82 Long term (current) use of aspirin; Z87.891 Personal history of nicotine dependence
CPT/HCPCS: 36415; 71010; 80048; 80053; 81001; 81003; 82746; 83605; 83880; 85025; 85610; 85730; 87040; 87086; 94640; 96365; 96375; 99284; 99285